=== PATIENT | female | born 1950 | race Caucasian/White ===

== ENCOUNTER 2024-04-16 14:03 | Inpatient (IN) | payer OTHER, SELFPAY ==
[2024-04-16] VITALS (10 sets, daily range): BP systolic 128–162; BP diastolic 65–94; BMI 33.0; BMI 29.0
--- NOTE | 2024-04-16 09:57 | ED.GENMED ---
History of Present Illness
General
Chief Complaint: Heart Rate Problem
Source: patient
Exam Limitations: none
Time Seen by Provider: 04/16/24 09:44
Travel History
Have you had any contact with someone who has COVID-19?: No
Do you have any symptoms of coronavirus? Fever > 100 degrees, chills, cough, shortness of breath, sore throat, loss of taste or smell, muscle aches, or headache?: No
History of Present Illness
History of Present Illness:
74-year-old female presents in referral from family doctor's office for increased leg swelling and weight gain over the past 2 weeks. She notes 20 pound weight gain in 2 weeks. She has never been diagnosed with congestive heart failure but has had
Lasix given to her as needed basis. She took 80 mg of Lasix last 3 days without any relief of her swelling. She denies significant chest pain or shortness of breath. Of note, patient had L2 and L3 fusion 3 weeks ago. She is not anticoagulated.
She notes that her legs are red and tender as well. No fevers. No other complaints at this time
Past History
Past History
ED Past Medical History: Arrthythmia, HTN, Hypothyroidism and Other (RA, colitis)
ED Past Surgical History: Bowel resection, Cardiac, Cholecystectomy, Gynecological, Orthopedic (multiple jjoint replacements) and Other
Social History
Tobacco: Non-smoker
Alcohol: Daily
Drug: None
Personal:
Living: with family
Employment: Retired
Family History
Family History: Hypertension
Phy Exam
Physical Exam
Physical Exam:
General: Well-appearing female no acute respiratory distress
HEENT: Normocephalic atraumatic
Heart: Tachycardic and irregular
Lungs: No obvious rales
Abdomen is soft nontender nondistended no guarding or rebound normal bowel sounds
Extremities: No cyanosis but significant pitting edema noted bilateral lower extremity spreading proximally just underneath the knees.
Vascular: Palpable pulses bilateral feet dorsally
Skin: Erythema noted over the anterior aspect of the shins bilaterally
Course
Orders/Labs/Results
Orders:
Orders
04/16/24 09:42
Electrocardiogram (*1) Urgent
Reason for Study: Chest Pain
EKG- Treatment ONCE
04/16/24 09:54
Diltiazem HCl [Cardizem] 10 mg IV NOW STA
CR Chest - 2 Views Urgent
Comment:
Reason For Exam: sob
Venous Doppler Lwr Ext Bilat [US Periph Venous LOWER Ext Jose] Urgent
Comment:
Reason For Exam: swelling
04/16/24 10:28
Complete Blood Count/With Diff Urgent
Comprehensive Metabolic Panel Urgent
Free T4 Urgent
NT-proBNP Urgent
TSH Reflex To Free T4 Urgent
04/16/24 11:23
Electrocardiogram (*1) Urgent
Reason for Study: Atrial Fibrillation
EKG- Treatment ONCE
04/16/24 12:30
Furosemide [Lasix] 80 mg IV NOW STA
Abnormal Lab Results
04/16/24
10:28
RBC 3.06 L 10^6/uL
(4.20-5.40)
Hgb 9.2 L g/dL
(12.0-16.0)
Hct 28.4 L %
(37.0-47.0)
MCHC 32.4 L g/dL
(33.0-37.0)
RDW 14.6 H %
(11.5-14.5)
Monocytes % 10.9 H %
(1.7-9.3)
Creatinine 0.5 L mg/dL
(0.6-1.0)
Total Protein 5.7 L g/dl
(6.3-8.2)
TSH (Reflex) 0.29 L uIU/ml
(0.47-4.68)
04/16/24 10:28
04/16/24 10:28
Vital Signs
Initial and Last Documented VS:
Initial Vital Signs
Temp Pulse Resp BP Pulse Ox
98.8 F 138 20 128/66 92
04/16/24 09:35 04/16/24 09:35 04/16/24 09:35 04/16/24 09:35 04/16/24 09:35
Last Documented Vital Signs
Temp Pulse Resp BP Pulse Ox
98.8 F 107 22 139/66 92
04/16/24 09:35 04/16/24 10:30 04/16/24 10:30 04/16/24 10:00 04/16/24 09:35
MDM/Problems Addressed
Differential Diagnosis Includes:
Increased swelling and weight gain. Question CHF versus arrhythmia versus DVT
Heart is irregular on exam. Rate of heartbeat on EKG inhibits good read but question atrial flutter versus sinus tachycardia. Will give Cardizem bolus to slow heart rate down and reassess
BNP pending and blood work. Chest x-ray pending.
*Critical Care Note
Total Time (30-74mins, 75-104mins- exclusive of procedures): Not Applicable
Update Note
Update Note:
Patient volume overloaded on exam. Chest x-ray clear BNP low. She has increased her Lasix over the past 2 days without relief and her legs are getting more swollen. Hemoglobin is 9.2 today. I reviewed the patient's prior records on her phone
through [facility]. This seems to be baseline since the beginning of this year. Ordered IV Lasix 80 mg admitted for volume overload
ED Attending Note
-
Portions of this chart may have been created with voice recognition software.� Occasional wrong word or��sound alike� substitutions may have occurred due to the inherent limitations of voice recognition software.
Discharge Plan
Departure
Patient Disposition: Admit
Date of Disposition: 04/16/24
Time of Disposition: 12:37
Admit to: Telemetry
Presentation/result/management discussed w/ accepting MD/DO: Hospitalist
Patient with high blood pressure during this ER visit?: No
Discharge Problem:
Volume overload
Prescriptions:
No Action
naratriptan [Amerge] 2.5 MG tablet
2.5 mg PO PRN PRN (Reason: MIGRAINE)
Patient Comments:
patient reports taking this medication a few weeks ago
pramipexole [Mirapex ER] 0.375 MG tablet extended release 24 hr
0.375 mg PO DAILY
oxycodone 10 MG tablet
10 mg PO HSPRN PRN (Reason: pain)
leflunomide [Arava] 20 MG tablet
20 mg PO DAILY
levothyroxine 100 MCG tablet
100 mcg PO DAILY AT 0700
Xeljanz XR 11 MG tablet extended release 24 hr
11 mg PO DAILY
furosemide [Lasix] 20 mg Tablet
10 mg PO DAILYPRN PRN (Reason: water retention)
potassium chloride 20 mEq Tablet Extended Release
20 meq PO DAILYPRN PRN (Reason: with lasix)
Referrals:
Mynor Méndez Jr. DO [Family Provider] -
Interventions
Interventions:
*Risk Screen - Suicide Last Done: 04/16/24 09:35
*General Assessment Last Done: 04/16/24 09:35
*Neglect/Abuse Screening Last Done: 04/16/24 09:35
*ED COVID-19 Vaccine History Last Done: 04/16/24 10:37
ED- Cardiac Assessment Last Done: 04/16/24 10:37
ED- Pulmonary Assessment Last Done: 04/16/24 10:37
ED-Skin Assessment Last Done: 04/16/24 10:37
Discharge Date and Time
Print Language: SAMI
[2024-04-16] MEDS: CARDIZEM 10 MG IV (10:33)
[2024-04-16 10:35] LABS: % Basophils 0.7 % (0-2); % Eosinophils 4.6 % (0-6); % Immature Granulocytes 0.3 % (0-0.5); % Lymphocytes 23.1 % (20.5-51.1); % Monocytes 10.9 % (1.7-9.3); % Neutrophils 60.4 % (42.2-75.2); Absolute Eosinophils 0.3 10^3/uL (0-0.7); Absolute Lymphocytes 1.4 10^3/uL (1.2-3.4); Absolute Monocytes 0.6 10^3/uL (0.1-0.6); Absolute Neutrophils 3.6 10^3/uL (1.4-6.5); Hematocrit 28.4 % (37.0-47.0); Hemoglobin 9.2 g/dL (12.0-16.0); Mean Corp Hgb Conc. 32.4 g/dL (33.0-37.0); Mean Corpuscular Hgb 30.1 pg (27.0-31.0); Mean Corpuscular Volume 92.8 fL (81.0-99.0); Mean Platelet Volume 8.8 fL (7.4-10.4); Nucleated Red Blood Cells % 0 %; Platelet Count 322 10^3/uL (130-400); Red Blood Cell Count 3.06 10^6/uL (4.20-5.40); Red Cell Dist. Width 14.6 % (11.5-14.5); White Blood Cell Count 5.9 10^3/uL (4.8-10.8)
[2024-04-16 10:56] LABS: ALT (SGPT) 19 U/L (0-35); AST (SGOT) 25 U/L (14-36); Albumin 3.5 g/dl (3.5-5.0); Alkaline Phosphatase 98 U/L (38-126); Blood Urea Nitrogen 17 mg/dl (7-17); Calcium 9.2 mg/dl (8.4-10.2); Carbon Dioxide 30 mmol/L (22-30); Chloride 98 mmol/L (98-107); Estimated Creatinine Clearance 85 ml/min; Glucose 95 mg/dl (70-99); Potassium 3.5 mmol/L (3.5-5.1); Sodium 136 mmol/L (135-145); Total Bilirubin 0.4 mg/dl (0.2-1.3); Total Protein 5.7 g/dl (6.3-8.2); eGFR > 60.00
[2024-04-16 11:01] LABS: NT-proBNP 349 pg/ml
[2024-04-16 11:28] LABS: TSH Reflex To Free T4 0.29 uIU/ml (0.47-4.68)
--- NOTE | 2024-04-16 12:43 | HPS.HSE ---
Addendum entered and electronically signed by Nataliia Arceo DO 04/16/24 13:58:
#Updated Med List - current meds-
Arava is on hold for now
Synthroid 100 mcg daily
Gabapentin 300 mg TID
Flexeril 10 mg TID prn spasm
OxyContin 10 mg q12H prn pain
Crestor 5 mg daily
#hold on abx at this time, b/l LE redness does not appear cellulitic at this time, close clinical monitoring
-low threshold to start abx-repeat CBC in am and monitor fever curve
Original Note:
Family Physician
-
Family Physician: Mynor Méndez Jr.
Chief Complaint
-
LE edema and redness
History of Present Illness
The patient is a 74 year-old woman with PMH significant for rheumatoid arthritis on Arava (currently off immunosuppressant due to recent surgery and has not restarted yet), hypothyroidism, HTN, and multiple orthopedic surgeries who presents to
eED due to increased leg swelling and weight gain over the past 2 weeks associated with a 20 pound weight gain in 2 weeks. No history of CHF but takes Lasix oral outpatient as needed for edema. She took 80 mg Lasix daily for 3 days without relief.
No CP, no SOB, no fevers, no chills, no n/v/d, no abdominal pain. She is s/p L2-3 spinal fusion 3 weeks ago. Not on anticoagulation. Legs are red and tender and have been getting progressively more red and tender over the past several days. No
traumatic injury, no skin tears nor lesions.
heart rate 107, 92% RA, Hgb 9.2 K 3.5
ED txt:
Diltiazem 10 mg IV once
Lasix 80 mg IV once
Medical History
Past Medical History
Past Medical History: Reports HTN, Hypothyroidism and Other (Rheumatoid arthritis)
Past Surgical History: Reports Bowel Resection (Partial small bowel resection), Cholecystectomy, Gynocological (RYAN) and Orthopedic (Bilateral Reverse Shoulder Replacements 9 Total Shoulder Surgeries Bilateral TKA Bilateral TOMMIE R TOMMIE Revision x 3
Right Foot ORIF with Extensive Retained Hardware (Patient estimates a total of 30 Orthopedic surgeries.))
Social History
Tobacco: Non-smoker
Alcohol: Daily
Drug: None
Personal:
Living: With Family
Family History
Family History: Cancer (Sister thyroid cancer, breast cancer, multiple sclerosis)
Allergies / Home Medications
Allergies reflects when Allergies were last updated in [facility].
Home Medications with original date entered in [facility]
Allergy/Medication List:
Allergies
Allergy/AdvReac Type Severity Reaction Status Date / Time
metoprolol Allergy Rash Verified 04/16/24 09:42
Home Medications
naratriptan 2.5 mg tablet (Amerge) 2.5 mg PO PRN PRN MIGRAINE 03/13/10
pramipexole 0.375 mg tablet,extended release 24 hr (Mirapex ER) 0.375 mg PO DAILY Neurological Condition 08/05/12
leflunomide 20 mg tablet (Arava) 20 mg PO DAILY Autoimmune disorder 06/13/14
oxycodone 10 mg tablet 10 mg PO HSPRN PRN pain 06/13/14
levothyroxine 100 mcg tablet 100 mcg PO DAILY AT 0700 Thyroid 02/19/17
tofacitinib 11 mg tablet,extended release 24 hr (Xeljanz XR) 11 mg PO DAILY Autoimmune disorder 09/18/21
furosemide 20 mg tablet (Lasix) 10 mg PO DAILYPRN PRN water retention 06/14/22
potassium chloride 20 mEq tablet,extended release 20 meq PO DAILYPRN PRN with lasix 06/14/22
Review of Systems
-
A 12 point ROS was completed and negative except as noted: Yes
Physical Exam
Vital Signs
Vital Signs
Temp Pulse Resp BP Pulse Ox
98.8 F 107 22 139/66 92
04/16/24 09:35 04/16/24 10:30 04/16/24 10:30 04/16/24 10:00 04/16/24 09:35
Physical Exam
General: Well Developed, Well Nourished, No Apparent Distress, Comfortable and Conversant
HEENT: NormoCephalic, Anicteric and Moist mucous membranes
Respiratory: Clear
Cardiac: S1/S2 and Tachycardia
GI: Soft, Non Tender and Non Distended
Musculoskeletal: No Clubbing, No Cyanosis, Edema, Left Lower Extremity (3+) and Edema, Right Lower Extremity (3+)
Skin: Warm and Dry
Neuro: AO x 3, No Motor Deficits and Nonfocal/grossly intact
Psych: Calm
Laboratory Results
-
04/16/24 10:28
04/16/24 10:28
Laboratory Results
Total Bilirubin 0.4 mg/dl (0.2-1.3) 04/16/24 10:28
AST 25 U/L (14-36) 04/16/24 10:28
ALT 19 U/L (0-35) 04/16/24 10:28
Alkaline Phosphatase 98 U/L (38-126) 04/16/24 10:28
Data Reviewed
-
Diagnostic Radiology: Image Personally Visualized and interpreted and Report Reviewed by me (CXR There is evidence for a comminuted fracture of the left proximal humeral shaft width side plate and cerclage wiring in this region. This would suggest a
acute to subacute fracture with internal fixation, and please correlate clinically.)
Medical Tests (Nuc Med, Echo, EKG etc): Report Reviewed by me (sinus rhythm w marked sinus arrythmia)
Impression/Plan
-
IMPRESSION:
The patient is a 74 year-old woman with PMH significant for rheumatoid arthritis on Arava (currently off immunosuppressant due to recent surgery and has not restarted yet), hypothyroidism, HTN, and multiple orthopedic surgeries who presents to the
ED due to increased leg swelling and weight gain over the past 2 weeks associated with a 20 pound weight gain in 2 weeks. No history of CHF but takes Lasix oral outpatient as needed for LE edema. She took 80 mg Lasix daily for 3 days without relief.
No CP, no SOB, no fevers, no chills, no n/v/d, no abdominal pain. She is s/p L2-3 spinal fusion 3 weeks ago. Not on anticoagulation. Legs are red and tender and have been getting progressively more red and tender over the past several days. No
traumatic injury, no skin tears nor lesions. She notes she saw Vascular Surgery OP for work-up of peripheral edema.
heart rate 107, 92% RA, Hgb 9.2 K 3.5
ED txt:
Diltiazem 10 mg IV once
Lasix 80 mg IV once
# B/L venous insufficiency with associated worsening peripheral edema & volume overload bilateral LE , following recent lumbar spinal fusion at [place] 3 weeks prior, without evidence for HFrEF at this time
-history of US venous insufficiency 09/16/22 with findings as follows on US:
-Insufficiency of BOTH below knee greater saphenous veins as well as the LEFT small saphenous vein. Isolated varicosity noted within the medial aspect of the left thigh, Incompetent academic assistant vein within the medial left ankle, Deep venous reflux
within the LEFT popliteal vein.
-Plan is for IV Lasix to reduce edema
-elevated LE
-izabela wrap legs b/l
-Consider Vascular consultation (She has seen [facility] outpatient in the past) pending clinical course
-repeat echocardiogram
-UA pending
#Tachycardia with history of tachyarrhythmia, [employer] Policy Specialist is Dr. Arshad , no CP, no SOB
-monitor on tele, s/p Dilt x 1 in ED, prn BB
-consult Cardiology
# Echo 10/15/23 normal LV size and systolic function EF 65-70%, mild LVH, mild AR, mild TR
-repeat echo this admission
# Hypothyroidism
-TSH 0.29
- T4 WNL 1.60
# Mild hypokalemia
-K 3.5 , replete and monitor
-Check Mg
Pro-BNP 349
#RA
- Stable. Arava is on hold OP s/p lumber spinal fusion, continue to hold.
DVT Prophylaxis: Lovenox
Code Status: Full
#Incidental finding on imaging: Comminuted fracture involving the proximal left humeral shaft with adjacent metallic sideplate, screws, and cerclage wiring. Findings would suggest internal fixation of acute to subacute fracture, and please correlate
clinically.
-patient not c/o acute symptoms nor trauma related to these findings, no new onset of symptoms and she has an OP Ortho follow-up in June with her Surgeon who performed the shoulder surgery repair (which as in June). She will contact her OP ortho
unless any further issues while inpatient.
[2024-04-16] MEDS: LASIX 80 MG IV (13:24)
--- NOTE | 2024-04-16 14:21 | CON.CAR ---
Consultation
Consultation Request
Date/Time Consultation Requested: April 16, 2024
Date/Time Consultation Performed: April 16, 2024
Requesting Provider: Dr. Arceo
Performing Provider: Dr. Arshad
Reason for Consultation: Lower extremity edema/heart failure/tachycardia
Medical History
-
Chief Complaint: Lower extremity edema
History of Present Illness:
Ana is a patient known to me last in the office January 2024 with a history of SVT, chronic lymphedema and venous insufficiency, frequent PVCs, hyperlipidemia, rheumatoid arthritis who has had multiple orthopedic surgeries. She stated that she
has had over 30 surgeries. She was deemed acceptable cardiac risk during the January visit for lumbar fusion surgery which she underwent at [facility] including L2-L3 laminectomy March 23, 2024.
Over the last 2 weeks she has noted increased lower extremity edema with redness over the last week of her lower extremities. Lasix 40 mg daily did not improve. She took additional Lasix on her own including 80 mg daily without improvement. She
denies chest pain or shortness of breath. She saw her PCP today in the office and was recommended ER evaluation. She is being admitted for lower extremity edema/volume overload with known lymphedema and venous insufficiency. She received Lasix 80
mg IV in the emergency room.
Past medical history:
Recent lumbar fusion L2-L3 laminectomy [facility] March 23, 2024
Multiple orthopedic surgeries, the patient says over 30
Lymphedema
Chronic venous insufficiency, she has seen vascular and was getting lymphatic pumps
HTN
Hyperlipidemia
Rheumatoid arthritis
Mild mitral regurgitation and tricuspid regurgitation and aortic regurgitation
Chronic PACs
History SVT with hx AVNRT ablation Sep 2018 Dr Brown
Hypothyroidism
right foot and ankle surgery November 2019
Left shoulder surgery April 2023
Hip dislocation May 2022, to [facility]
Echo September 2023: EF 65 to 70% with mild LVH, mild MR, mild AR, mild TR, PASP 30 to 35 mmHg no change from 2020
Lexiscan MIBI March 2021 showed normal myocardial perfusion
Social History
Tobacco: Non-Smoker
Alcohol: Occasional
Drug: None
Personal:
Living: With Family
Family History
Family History: Reviewed & Not Pertinent (Father age 94, mother 102)
Allergies / Home Medications
Allergy/AdvReac Type Severity Reaction Status Date / Time
metoprolol Allergy Rash Verified 04/16/24 09:42
�Medication �Instructions �Recorded �Confirmed �Type
naratriptan 2.5 mg tablet (Amerge) 2.5 mg PO PRN PRN MIGRAINE 03/13/10 06/14/22 History
pramipexole 0.375 mg 0.375 mg PO DAILY Neurological 08/05/12 06/14/22 History
tablet,extended release 24 hr Condition
(Mirapex ER)
leflunomide 20 mg tablet (Arava) 20 mg PO DAILY Autoimmune disorder 06/13/14 06/14/22 History
oxycodone 10 mg tablet 10 mg PO HSPRN PRN pain 06/13/14 06/14/22 History
levothyroxine 100 mcg tablet 100 mcg PO DAILY AT 0700 Thyroid 02/19/17 06/14/22 History
tofacitinib 11 mg tablet,extended 11 mg PO DAILY Autoimmune disorder 09/18/21 06/14/22 History
release 24 hr (Xeljanz XR)
furosemide 20 mg tablet (Lasix) 10 mg PO DAILYPRN PRN water 06/14/22 06/14/22 History
retention
potassium chloride 20 mEq 20 meq PO DAILYPRN PRN with lasix 06/14/22 06/14/22 History
tablet,extended release
Review of Systems
-
History Source: Patient
All other systems: Negative unless noted
Musculoskeletal: Edema (Bilateral lower extremity with erythema)
Physical Exam
Vital Signs
Temp Pulse Resp BP Pulse Ox
98.8 F 94 15 142/67 92
04/16/24 09:35 04/16/24 13:24 04/16/24 12:45 04/16/24 13:24 04/16/24 09:35
Physical Examination:
General: No acute distress, AAOX3
Neck: Negative JVD
Heart: Regular, Negative S3 positive S1/S2, Negative S4, No murmur
Lungs: CTA b/l, negative wheezes/rales/rhonchi
Abd: Positive BS, NT/ND, neg rebound/rigidity/guarding
Ext: Negative cyanosis/clubbing. +1-2 bilateral edema with erythema
Neuro: nonfocal
Lab Results
04/16/24 10:28
04/16/24 10:28
Map-S-Qpeenqtfxmc Pept 349 pg/ml 04/16/24 10:28
Impression / Plan
-
.
Primary nephrology social worker: Dr. Arshad
Impression:
Increased lower extremity edema with erythema with history of lymphedema and known venous stasis
s/p recent lumbar fusion L2-L3 laminectomy [facility] March 23, 2024
Multiple orthopedic surgeries, the patient says over 30
Lymphedema
Chronic venous insufficiency, she has seen vascular and was getting lymphatic pumps
HTN
Hyperlipidemia
Rheumatoid arthritis
Mild mitral regurgitation and tricuspid regurgitation and aortic regurgitation
Chronic PACs with recent monitor
History SVT with hx AVNRT ablation Sep 2018 Dr Brown
Hypothyroidism
right foot and ankle surgery November 2019
Left shoulder surgery April 2023
Hip dislocation May 2022, to [facility]
Echo September 2023: EF 65 to 70% with mild LVH, mild MR, mild AR, mild TR, PASP 30 to 35 mmHg no change from 2020
Lexiscan MIBI March 2021 showed normal myocardial perfusion
Recent 3-day monitor March 2024: Normal sinus rhythm throughout the study with average heart rate 96 bpm, frequent atrial tachycardia longest 19 beats, frequent PACs over 20,000/day, rare PVCs
Plan:
Agree with IV Lasix diuresis given her suppose a 20 pound weight gain as well as lower extremity edema and erythema.
Agree with leg wraps.
She has limited capability to raise her legs and so declines due to chronic hip dislocation and significant orthopedic issues.
proBNP 349
Replete lytes as needed
Consider echocardiogram prior to discharge if she is still here April 18.
The patient did express that she did not want to stay more than 24 hours. Explained that diuresis may take longer than this.
Consider continuing calcium channel aubrie for tachycardia, ectopy. History of pruritus with metoprolol.
Monitor for cellulitis.
PT/OT
Continue statin for hyperlipidemia
Discussed with primary service.
Data Reviewed
-
EKG: Tracing Personally Visualized and interpreted
Labs: Labs Reviewed by me
Old Records: Reviewed
[2024-04-16] MEDS: FLEXERIL 10 MG PO (16:05)
[2024-04-16] MEDS: OXYCONTIN (CONTROLLED RELEASE) 10 MG PO (16:05)
[2024-04-16 17:40] LABS: Urine Albumin Negative (Neg - Trace); Urine Bilirubin Negative (Negative); Urine Character Clear (Clear); Urine Color Yellow; Urine Glucose Negative (Negative); Urine Ketone Negative (Negative); Urine Leukocyte Negative (Negative); Urine Nitrite Negative (Negative); Urine Occult Blood Negative (Negative); Urine Urobilinogen Negative (Neg - 1+)
[2024-04-16] MEDS: ROXICODONE 10 MG PO (18:43)
[2024-04-16] MEDS: CRESTOR 5 MG PO (18:43)
[2024-04-16] MEDS: LOVENOX 40 MG SC (18:43)
[2024-04-16] MEDS: LASIX 40 MG IV (18:43)
[2024-04-16 18:53] LABS: Troponin I < 0.012 ng/ml
[2024-04-16 20:16] LABS: Magnesium 1.9 mg/dl (1.6-2.3)
--- NOTE | 2024-04-16 21:00 | PTCARENOTE ---
Patient is inquiring about Mirapex medication for her restless legs and why it is currently not ordered for her to take while in hospital. Will discuss with dayshift nurse for attending doctor to address in am.
[2024-04-16] MEDS: NEURONTIN 300 MG PO (21:36)
[2024-04-17] VITALS (7 sets, daily range): BP systolic 105–126; BP diastolic 54–74; PULSE 105; O2SAT 92; BMI 28.3
[2024-04-17 00:28] LABS: Troponin I < 0.012 ng/ml
--- NOTE | 2024-04-17 01:08 | PTCARENOTE ---
Patient is refusing to have bed placed in low position. Patient states that with her recent back surgery, she is unable to get OOB when it is in lowest position. Understands risks of bed not being placed in lowest position to the floor. Call juan
within reach, will monitor.
[2024-04-17] MEDS: SYNTHROID 100 MCG PO (05:44)
[2024-04-17 07:52] LABS: Hematocrit 27.1 % (37.0-47.0); Hemoglobin 8.7 g/dL (12.0-16.0); Mean Corp Hgb Conc. 32.1 g/dL (33.0-37.0); Mean Corpuscular Hgb 30.4 pg (27.0-31.0); Mean Corpuscular Volume 94.8 fL (81.0-99.0); Mean Platelet Volume 9.4 fL (7.4-10.4); Platelet Count 335 10^3/uL (130-400); Red Blood Cell Count 2.86 10^6/uL (4.20-5.40); Red Cell Dist. Width 14.6 % (11.5-14.5); White Blood Cell Count 5.5 10^3/uL (4.8-10.8)
--- NOTE | 2024-04-17 08:00 | W.PN.HOSP.TC ---
Today's Communication/Plan
-
Will continue IV diuresis
Monitor daily weights
Monitor BMP
Apply compression device to both lower extremities
Will be difficult for leg elevation given her hip infirmity and recent spinal surgery
Appreciate cardiology input
Assessment / Plan
Assessment / Plan
74 year-old woman with PMH significant for rheumatoid arthritis on Arava (currently off immunosuppressant due to recent surgery and has not restarted yet), hypothyroidism, HTN, and multiple orthopedic surgeries who presents to [facility] due to
increased leg swelling and weight gain over the past 2 weeks associated with a 20 pound weight gain in 2 weeks. No history of CHF but takes Lasix oral outpatient as needed for edema. She took 80 mg Lasix daily for 3 days without relief. No CP, no
SOB, no fevers, no chills, no n/v/d, no abdominal pain. She is s/p L2-3 spinal fusion 3 weeks ago. Not on anticoagulation. Legs are red and tender and have been getting progressively more red and tender over the past several days. No traumatic
injury, no skin tears nor lesions.
Was given a single dose of diltiazem 10 mg in the ED
She has had a recent Holter monitor in the last week showed periods of runs of atrial tachycardia but underlying sinus rhythm throughout no A-fib
Telemetry since arrival continues to show sinus rhythm with frequent PACs
B/L venous insufficiency with associated worsening peripheral edema & volume overload bilateral LE , following recent lumbar spinal fusion at [place] 3 weeks prior, without evidence for HFrEF at this time
-history of US venous insufficiency 09/16/22 with findings as follows on US:
-Insufficiency of BOTH below knee greater saphenous veins as well as the LEFT small saphenous vein. Isolated varicosity noted within the medial aspect of the left thigh, Incompetent gas plant worker vein within the medial left ankle, Deep venous reflux
within the LEFT popliteal vein.
-Plan is for IV Lasix to reduce edema/compression devices and Julian wrap's should be added
-elevated LE difficult given her history of frequent hip dislocations and recent spinal fusion
-julian wrap legs b/l
-Consider Vascular consultation (She has seen Gonsalez outpatient in the past) pending clinical course
-repeat echocardiogram
-UA was within normal limits
#Tachycardia with history of tachyarrhythmia, Lock Expert is Dr. Arshad , no CP, no SOB
-monitor on tele, s/p Dilt x 1 in ED, prn BB
-consult Cardiology
# Echo 10/15/23 normal LV size and systolic function EF 65-70%, mild LVH, mild AR, mild TR
-repeat echo this admission
# Hypothyroidism
-TSH 0.29
- T4 WNL 1.60
# Mild hypokalemia
-K 3.5 , replete and monitor
-Check Mg
Pro-BNP 349
#RA
- Stable. Arava is on hold OP s/p lumber spinal fusion, continue to hold.
DVT Prophylaxis: Lovenox
Code Status: Full
#Incidental finding on imaging: Comminuted fracture involving the proximal left humeral shaft with adjacent metallic sideplate, screws, and cerclage wiring. Findings would suggest internal fixation of acute to subacute fracture, and please correlate
clinically.
-patient not c/o acute symptoms nor trauma related to these findings, no new onset of symptoms and she has an OP Ortho follow-up in June with her Surgeon who performed the shoulder surgery repair (which as in June). She will contact her OP ortho
unless any further issues while inpatient.
Anticipated Discharge: Within 24 hours
Subjective/Interval History
-
Date of Service: April 17, 2024
Really did not have a lot of diuresis given after IV Lasix
Objective Data
-
Labs:
Laboratory Results
04/17/24
06:49
WBC 5.5
Hgb 8.7 L
Hct 27.1 L
Plt Count 335
Sodium Pending
Potassium Pending
Chloride Pending
Carbon Dioxide Pending
BUN Pending
Creatinine Pending
Glucose Pending
Calcium Pending
Vital Signs:
Vital Signs
Temp Pulse Resp BP Pulse Ox
98.6 F 112 20 124/68 94
04/17/24 03:00 04/17/24 03:00 04/17/24 03:00 04/17/24 03:00 04/17/24 03:00
I&O
04/16/24 04/17/24 04/18/24
06:59 06:59 06:59
Intake Total 480 / 480
Balance 480 / 480
Review of Systems
-
History Source: Patient
EENT: Reports No Symptoms Reported
Respiratory: Reports No Symptoms
Cardiac: Reports No Symptoms
Abdomen/GI: Reports No Symptoms
Skin: Reports Rash (Lower extremities) and Skin Thickening
Physical Exam
-
General: No Apparent Distress
HEENT: Normocephalic
Cardiac: S1/S2 and Irregular Rhythm (Underlying sinus rhythm with frequent PACs)
GI: Soft and Nontender
Musculoskeletal: Edema, Right Lower Extrem, Edema, Left Lower Extrem and Other (Stasis changes and erythema)
Psych: Calm
Data Reviewed
-
Total Time Spent with Patient (in minutes): 56
Medical Tests (Nuc Med, Echo etc): Image personally visualized and interpreted and Report Reviewed by me (CBC and chemistries pending)
Labs: Labs Reviewed by me
[2024-04-17 08:15] LABS: Blood Urea Nitrogen 13 mg/dl (7-17); Calcium 9.3 mg/dl (8.4-10.2); Carbon Dioxide 31 mmol/L (22-30); Chloride 99 mmol/L (98-107); Estimated Creatinine Clearance 87 ml/min; Glucose 93 mg/dl (70-99); HDL Cholesterol 39 mg/dl; Iron 32 ug/dl (37-170); LDL Cholesterol, Calculated 53 mg/dl; Potassium 3.1 mmol/L (3.5-5.1); Sodium 138 mmol/L (135-145); Total Cholesterol 109 mg/dl (50-199); Triglyceride 89 mg/dl (10-149); Very Low Density Lipoprotein 17 mg/dl (0-30); eGFR > 60.00
[2024-04-17 08:26] LABS: Percent Saturation 11 % (20-50); Total Iron Binding Capacity 283 ug/dl (265-497)
[2024-04-17 08:46] LABS: Ferritin 41.1 ng/ml (11.1-264.0)
[2024-04-17] MEDS: LASIX 40 MG IV ×2 (08:48→16:48)
[2024-04-17] MEDS: NEURONTIN 300 MG PO ×3 (08:48→21:57)
[2024-04-17] MEDS: ROXICODONE 10 MG PO ×3 (08:52→20:47)
[2024-04-17] MEDS: FLEXERIL 10 MG PO ×2 (08:53→16:53)
[2024-04-17 09:17] LABS: Folate > 20.0 ng/ml (2.76-20); Vitamin B12 578 pg/ml (239-931)
--- NOTE | 2024-04-17 11:45 | CM ---
Met with pt at bedside
Lives with her in a 2 story home
Recently at [place] for back surgery
Independent at home
DME - cane. has CPAP
SNF - denies past history
HH - Current with [facility]
Has ride at d/c
PCP - Dr Prieto Méndez
Pharm - [facility]
CM will follow for d/c needs
Plan - anticipate home with [facility]
--- NOTE | 2024-04-17 15:14 | W.PN.CARDCBS ---
Today's Communication / Plan
-
Cont IV diuresis
Echo tomorrow
Impression / Plan
-
.
Primary computer security specialist: Dr. Arshad
Impression:
Increased lower extremity edema with erythema with history of lymphedema and known venous stasis
s/p recent lumbar fusion L2-L3 laminectomy [facility] March 23, 2024
Multiple orthopedic surgeries, the patient says over 30
Lymphedema
Chronic venous insufficiency, she has seen vascular and was getting lymphatic pumps
HTN
Hyperlipidemia
Rheumatoid arthritis
Mild mitral regurgitation and tricuspid regurgitation and aortic regurgitation
Chronic PACs with recent monitor
History SVT with hx AVNRT ablation Sep 2018 Dr Brown
Hypothyroidism
right foot and ankle surgery November 2019
Left shoulder surgery April 2023
Hip dislocation May 2022, to [facility]
Echo September 2023: EF 65 to 70% with mild LVH, mild MR, mild AR, mild TR, PASP 30 to 35 mmHg no change from 2020
Lexiscan MIBI March 2021 showed normal myocardial perfusion
Recent 3-day monitor March 2024: Normal sinus rhythm throughout the study with average heart rate 96 bpm, frequent atrial tachycardia longest 19 beats, frequent PACs over 20,000/day, rare PVCs
Plan:
Cont IV Lasix diuresis given her supposed 20 pound weight gain as well as lower extremity edema and erythema.
Agree with leg wraps.
Wt coming down
She has limited capability to raise her legs and so declines due to chronic hip dislocation and significant orthopedic issues.
proBNP 349 on admit.
Replete lytes as needed
Consider echocardiogram prior to discharge if she is still here April 18.
Consider continuing calcium channel aubrie for tachycardia, ectopy which is chronic. History of pruritus with metoprolol.
Monitor for cellulitis.
PT/OT
Continue statin for hyperlipidemia
Discussed with primary service.
Progress Note - Photo Printer
Subjective
Date of Service: April 17, 2024
Pt seen and examined. No cp or dyspnea.
Objective
Labs:
04/17/24 06:49
04/17/24 06:49
Labs
Hgb 8.7 g/dL (12.0-16.0) L 04/17/24 06:49
Hct 27.1 % (37.0-47.0) L 04/17/24 06:49
Plt Count 335 10^3/uL (130-400) 04/17/24 06:49
Sodium 138 mmol/L (135-145) 04/17/24 06:49
Potassium 3.1 mmol/L (3.5-5.1) L 04/17/24 06:49
BUN 13 mg/dl (7-17) 04/17/24 06:49
Creatinine 0.5 mg/dL (0.6-1.0) L 04/17/24 06:49
Glucose 93 mg/dl (70-99) 04/17/24 06:49
Troponins
04/16/24 04/16/24
18:22 23:50
Troponin I < 0.012 < 0.012
Vital Signs and I&O:
Vital Signs
Temp Pulse Resp BP Pulse Ox
98.6 F 104 18 117/69 96
04/17/24 11:10 04/17/24 11:10 04/17/24 11:10 04/17/24 11:10 04/17/24 11:10
Vital Signs
Temp Pulse Resp BP Pulse Ox
98.6 F 104 18 117/69 96
04/17/24 11:10 04/17/24 11:10 04/17/24 11:10 04/17/24 11:10 04/17/24 11:10
Intake & Output
04/15/24 04/16/24 04/17/24 04/18/24
06:59 06:59 06:59 06:59
Intake Total 480 / 480
Balance 480 / 480
Physical Exam
Physical Exam
General: No acute distress, AAOX3
Neck: Negative JVD
Heart: Regular, Negative S3 positive S1/S2, Negative S4, No murmur
Lungs: CTA b/l, negative wheezes/rales/rhonchi
Abd: Positive BS, NT/ND, neg rebound/rigidity/guarding
Ext: Negative cyanosis/clubbing. + 2 b/l LE lymphedema
Neuro: nonfocal
[2024-04-17] MEDS: LOVENOX 40 MG SC (16:46)
[2024-04-17] MEDS: CRESTOR 5 MG PO (16:47)
[2024-04-18 03:25] VITALS: BP 111/68
[2024-04-18] MEDS: SYNTHROID 100 MCG PO (05:36)
[2024-04-18] MEDS: ROXICODONE 10 MG PO ×4 (05:36→21:22)
[2024-04-18 06:00] VITALS: BMI 27.8
[2024-04-18 07:09] LABS: Blood Urea Nitrogen 12 mg/dl (7-17); Calcium 9.1 mg/dl (8.4-10.2); Carbon Dioxide 35 mmol/L (22-30); Chloride 94 mmol/L (98-107); Estimated Creatinine Clearance 87 ml/min; Glucose 94 mg/dl (70-99); Sodium 136 mmol/L (135-145); eGFR > 60.00
[2024-04-18 07:34] VITALS: BP 109/59
[2024-04-18] MEDS: FLEXERIL 10 MG PO (08:24)
[2024-04-18] MEDS: NEURONTIN 300 MG PO ×3 (08:24→21:21)
[2024-04-18] MEDS: LASIX 40 MG IV ×2 (08:25→15:37)
[2024-04-18 10:02] LABS: % Basophils 0.5 % (0-2); % Eosinophils 6.2 % (0-6); % Immature Granulocytes 0.4 % (0-0.5); % Lymphocytes 31.5 % (20.5-51.1); % Monocytes 12.2 % (1.7-9.3); % Neutrophils 49.2 % (42.2-75.2); Absolute Eosinophils 0.3 10^3/uL (0-0.7); Absolute Lymphocytes 1.7 10^3/uL (1.2-3.4); Absolute Monocytes 0.7 10^3/uL (0.1-0.6); Absolute Neutrophils 2.7 10^3/uL (1.4-6.5); Hematocrit 27.2 % (37.0-47.0); Hemoglobin 8.7 g/dL (12.0-16.0); Mean Corpuscular Hgb 30.4 pg (27.0-31.0); Mean Corpuscular Volume 95.1 fL (81.0-99.0); Mean Platelet Volume 9.4 fL (7.4-10.4); Nucleated Red Blood Cells % 0 %; Platelet Count 360 10^3/uL (130-400); Red Blood Cell Count 2.86 10^6/uL (4.20-5.40); Red Cell Dist. Width 14.8 % (11.5-14.5); White Blood Cell Count 5.5 10^3/uL (4.8-10.8)
[2024-04-18] MEDS: KCL 40 MEQ PO ×3 (10:28→15:40)
--- NOTE | 2024-04-18 10:56 | W.PN.CARDCBS ---
Addendum entered and electronically signed by Harpal Weller MD 04/18/24 17:43:
Telemetry with either episodes of PAT/A-fib. Janay has been added
Addendum entered and electronically signed by Harpal Weller MD 04/18/24 12:43:
I saw and examined the patient.
The FOCUSED FACTORY MANAGER or PA's note was reviewed and I agree with the note.
Comment: General: Well developed, well nourished in NAD.
Neck: Supple, no JVD, HJR, carotids +2 B/L, no bruits bilaterally.
Heart: Non displaced PMI, RRR, no murmurs, No S3, S4, no rubs.
Lungs: Scattered rhonchi
Extremities: Moderate lower extremity edema bilaterally.
Neuro: Grossly nonfocal, awake, alert and oriented x3.
He feels her weight is normally 162 pounds at baseline and is 172 pounds on Wednesday 04/18. Continue IV Lasix. Replete potassium.
Original Note:
Today's Communication / Plan
-
Continue IV diuresis
Aggressively replete potassium
Check left lower extremity venous Doppler
Impression / Plan
-
.
Primary apple checker: Dr. Arshad
Impression:
Presented w/ increased lower extremity edema, weight gain
Increased lower extremity edema with erythema with history of lymphedema and known venous stasis
Anemia
s/p recent lumbar fusion L2-L3 laminectomy [facility] March 23, 2024
Multiple orthopedic surgeries, the patient says over 30
Lymphedema
Chronic venous insufficiency, she has seen vascular and was getting lymphatic pumps
HTN
Hyperlipidemia
Rheumatoid arthritis
Mild mitral regurgitation and tricuspid regurgitation and aortic regurgitation
Chronic PACs with recent monitor
History SVT with hx AVNRT ablation Sep 2018 Dr Brown
Hypothyroidism
right foot and ankle surgery November 2019
Left shoulder surgery April 2023
Hip dislocation May 2022, to [facility]
Echo 04/18/2024: Ordered
Echo September 2023: EF 65 to 70% with mild LVH, mild MR, mild AR, mild TR, PASP 30 to 35 mmHg no change from 2020
Lexiscan MIBI March 2021 showed normal myocardial perfusion
Recent 3-day monitor March 2024: Normal sinus rhythm throughout the study with average heart rate 96 bpm, frequent atrial tachycardia longest 19 beats, frequent PACs over 20,000/day, rare PVCs
Plan:
Cont IV Lasix diuresis given her supposed 20 pound weight gain as well as lower extremity edema and erythema.
proBNP 349 on admit.
Agree with leg wraps.
Wt coming down, has lost 5 lbs since admission
She has limited capability to raise her legs due to chronic hip dislocation and significant orthopedic issues.
Replete lytes as needed, K+ 3.0 will need aggressive repletion 40 meq TID today
Check Echocardiogram 04/18/24.
Start low dose Diltiazem 120 mg for tachycardia, PACs/ectopy which is chronic. History of pruritus with metoprolol.
Complaining of worsening left lower extremity swelling and pain. Patient reports Julian wrap slipped down and her left calf is now very painful and swollen. Her left foot is painful as well. Will check lower extremity venous Doppler to rule out DVT.
Monitor for cellulitis, although redness seems to have improved.
PT/OT
Noted to be anemic on admission with hemoglobin 9.2. Currently 8.7. May be secondary to recent orthopedic surgery. Continue to monitor and trend. Consider heme testing stool. Defer to primary service
Continue statin for hyperlipidemia
Discussed with primary service.
History of Present Illness 04/16/24:
Ana is a patient known to me last in the office January 2024 with a history of SVT, chronic lymphedema and venous insufficiency, frequent PVCs, hyperlipidemia, rheumatoid arthritis who has had multiple orthopedic surgeries. She stated that she
has had over 30 surgeries. She was deemed acceptable cardiac risk during the January visit for lumbar fusion surgery which she underwent at [facility] including L2-L3 laminectomy March 23, 2024.
Over the last 2 weeks she has noted increased lower extremity edema with redness over the last week of her lower extremities. Lasix 40 mg daily did not improve. She took additional Lasix on her own including 80 mg daily without improvement. She
denies chest pain or shortness of breath. She saw her PCP today in the office and was recommended ER evaluation. She is being admitted for lower extremity edema/volume overload with known lymphedema and venous insufficiency. She received Lasix 80
mg IV in the emergency room.
Progress Note - Bilingual Administrative Assistant
Subjective
Date of Service: April 18, 2024
Patient seen and examined. Patient sitting up in bed. Complaining of worsening left lower extremity swelling and pain. Patient reports Julian wrap slipped down and her left calf is now very painful and swollen. Her left foot is painful as well.
Objective
Labs:
04/18/24 06:24
04/18/24 09:37
Labs
Hgb 8.7 g/dL (12.0-16.0) L 04/18/24 06:24
Hct 27.2 % (37.0-47.0) L 04/18/24 06:24
Plt Count 360 10^3/uL (130-400) 04/18/24 06:24
Sodium Cancelled 04/18/24 09:37
Potassium Cancelled 04/18/24 09:37
BUN Cancelled 04/18/24 09:37
Creatinine Cancelled 04/18/24 09:37
Glucose Cancelled 04/18/24 09:37
Troponins
04/16/24 04/16/24
18:22 23:50
Troponin I < 0.012 < 0.012
Vital Signs and I&O:
Vital Signs
Temp Pulse Resp BP Pulse Ox
98.7 F 98 18 109/59 94
04/18/24 07:34 04/18/24 07:34 04/18/24 07:34 04/18/24 08:25 04/18/24 07:34
Vital Signs
Temp Pulse Resp BP Pulse Ox
98.7 F 98 18 109/59 94
04/18/24 07:34 04/18/24 07:34 04/18/24 07:34 04/18/24 08:25 04/18/24 07:34
Intake & Output
04/16/24 04/17/24 04/18/24 04/19/24
06:59 06:59 06:59 06:59
Intake Total 480 / 480 1360 / 1360
Output Total 1800 / 1800
Balance 480 / 480 -440 / -440
Physical Exam
Physical Exam
GEN: No distress, awake, Ox3, sitting in bed
HEENT: supple, anicteric, mmm
LUNGS: CTA, no wheezes/rales
CV: Reg, S1/S2, no murmur, rub or gallop
ABD: soft, BS+, NT/ND
EXT: Left calf enlarged/swollen, firm, painful to touch. Left foot/ankle +1 edema, right lower extremity trace edema. Bilateral skin changes consistent with chronic venous stasis
NEURO: Gross non-focal
SKIN: No rash, warm, dry, pink
[2024-04-18 11:59] VITALS: BP 141/73
[2024-04-18] MEDS: CARDIZEM CD 120 MG PO (13:01)
[2024-04-18 15:30] VITALS: BP 118/60
[2024-04-18] MEDS: LOVENOX 40 MG SC (17:19)
[2024-04-18] MEDS: CRESTOR 5 MG PO (17:19)
--- NOTE | 2024-04-18 19:27 | W.PN.HOSP.TC ---
Addendum entered and electronically signed by Tono Saavedra MD 04/18/24 23:16:
Attending Addendum-
I saw and evaluated the patient. I reviewed the resident�s note and agree with findings and plan as documented in the resident�s note. Complains of b/l LE pain. Back pain present but chronic. 'Chelsi had 37 orthopedic surgeries!' Full 12 point ROS
reviewed and negative except as documented Exam: Vitals reviewed in chart GEN-NAD Heart irreg lungs clear abd soft LE +1 pitting edema TTP LT>RT Back- incision CDI Plan:
# B/L venous insufficiency with associated worsening peripheral edema & volume overload bilateral LE , following recent lumbar spinal fusion at [place] 3 weeks prior, without evidence for HFrEF at this time
-history of US venous insufficiency
-Cont IV Lasix to reduce edema/compression devices and Julian wrap's
-Consider Vascular consultation as OP Dr. Gonsalez
-repeat echocardiogram
- dropping weight- 6kgs since admission
- monitor strict i and os and daily weights
#Tachycardia with history of tachyarrhythmia ? p afib, Deicer Repairer Pneumatic is Dr. Arshad , no CP, no SOB
-monitor on tele, s/p Dilt x 1 in ED
-consult Cardiology
-add Cardizem
-repeat EKG
# Echo 10/15/23 normal LV size and systolic function EF 65-70%, mild LVH, mild AR, mild TR
-repeat echo this admission
# Hypothyroidism
-cont levothyroxine
# Hypokalemia
-replete aggressively as on lasix
-Check Mg
-repeat labs in am
Pro-BNP 349
#RA
- Stable. Arava is on hold OP s/p lumber spinal fusion, continue to hold.
# HLD
- cont crestor
# Chronic Back Pain/narcotic use
- cont pain meds
- PT OT
# Left Hum fx-
- ortho c/s if needed
- no c/o acute symptoms nor trauma related to these findings, no new onset of symptoms and she has an OP Ortho follow-up in June with her Surgeon who performed the shoulder surgery repair (which as in June). She will contact her OP ortho unless
any further issues while inpatient.
# Peripheral Neuropathy-
- cont gabapentin
DVT Prophylaxis: Lovenox
Code Status: Full
Time spent coordinating care, review of plan of care with resident, review of records, med rec, consults, notes, labs, rads, d/w nursing � 59 mins
Original Note:
Today's Communication/Plan
-
Continue IV Lasix
Continue telemetry
Started on diltiazem
Potassium replete
Assessment / Plan
Assessment / Plan
#Lower extremity edema with erythema
No evidence of HFrEF at this time
Echo 10/15/23 normal LV size and systolic function EF 65-70%, mild LVH, mild AR, mild TR
proBNP�349
Repeat echo today- Normal left ventricular chamber size. Mild concentric left ventricular
hypertrophy. Hyperdynamic left ventricular systolic function. Normal regional
wall motion. LV ejection fraction is 65-70%.
Mild to moderate mitral regurgitation.
Mild aortic regurgitation.
Mild to moderate tricuspid regurgitation. Estimated pulmonary artery pressure
of 50-55 mmHg.
Compared to the previous echo from Sep 2023, MR, AR and TR were mild at that
time.
-history of US venous insufficiency 09/16/22 with findings as follows on US: -Insufficiency of BOTH below knee greater saphenous veins as well as the LEFT small saphenous vein. Isolated varicosity noted within the medial aspect of the left thigh,
Incompetent bank credit card collection clerk vein within the medial left ankle, Deep venous reflux within the LEFT popliteal vein.
-Continue IV Lasix
-julian wrap legs b/l
Trend weights, patient lost 6 kgs since admission
#Tachycardia with history of tachyarrhythmia
-monitor on tele- sinus rhythm with frequent PACs
-s/p Dilt x 1 in ED
Cardiology consult
Start low dose Diltiazem 120 mg for tachycardia, PACs/ectopy which is chronic. History of pruritus with metoprolol.
#s/p recent lumbar fusion L2-L3 laminectomy 3 weeks ago [facility] March 23, 2024
# Hypothyroidism
Continue levothyroxine
# Mild hypokalemia
-K 3.0 ,
replete and monitor
-Check Mg
#anemic on admission
hemoglobin 9.2. Currently 8.7.
May be secondary to recent orthopedic surgery.
Continue to monitor and trend.
#RA
Arava is on hold OP s/p lumber spinal fusion, continue to hold.
DVT Prophylaxis: Lovenox
Anticipated Discharge: 24 - 48 hours
Subjective/Interval History
-
Date of Service: April 18, 2024
Patient reports having worsening pain in the lower extremities.
Objective Data
-
Labs:
Laboratory Results
04/18/24 04/18/24
06:24 09:37
WBC 5.5
Hgb 8.7 L
Hct 27.2 L
Plt Count 360
Sodium Cancelled
Potassium Cancelled
Chloride Cancelled
Carbon Dioxide Cancelled
BUN Cancelled
Creatinine Cancelled
Glucose Cancelled
Calcium Cancelled
Total Bilirubin Cancelled
AST Cancelled
ALT Cancelled
Alkaline Phosphatase Cancelled
Vital Signs:
Vital Signs
Temp Pulse Resp BP Pulse Ox
99.8 F 100 16 118/60 94
04/18/24 15:30 04/18/24 15:30 04/18/24 15:30 04/18/24 15:30 04/18/24 15:30
I&O
04/17/24 04/18/24 04/19/24
06:59 06:59 06:59
Intake Total 480 / 480 1360 / 1360 360 / 360
Output Total 1800 / 1800
Balance 480 / 480 -440 / -440 360 / 360
Review of Systems
-
All other systems: Reviewed and negative (As per HPI)
Physical Exam
-
General: Well Developed and Well Nourished
HEENT: Normocephalic and Atraumatic
Respiratory: Clear to Auscultation
Cardiac: S1/S2 and Tachycardic
Musculoskeletal: Edema, Right Lower Extrem, Edema, Left Lower Extrem and Other (Bilateral skin changes consistent with chronic venous stasis, warm and tender)
Neuro: Awake, Alert, Oriented and AO x 3
Psych: Calm
[2024-04-18 19:44] VITALS: BP 125/57
[2024-04-18 23:12] VITALS: BP 109/57
[2024-04-19 03:05] VITALS: BP 103/68
[2024-04-19] MEDS: SYNTHROID 100 MCG PO (05:27)
[2024-04-19 06:00] VITALS: BMI 27.7
[2024-04-19 07:00] VITALS: BP 104/51
[2024-04-19] MEDS: NEURONTIN 300 MG PO ×3 (07:59→21:47)
[2024-04-19] MEDS: CARDIZEM CD 120 MG PO (07:59)
[2024-04-19] MEDS: LASIX 40 MG IV ×2 (08:00→15:45)
[2024-04-19] MEDS: ROXICODONE 10 MG PO ×3 (08:06→21:48)
[2024-04-19] MEDS: FLEXERIL 10 MG PO (08:06)
[2024-04-19 08:31] LABS: Hematocrit 27.8 % (37.0-47.0); Hemoglobin 8.7 g/dL (12.0-16.0); Mean Corp Hgb Conc. 31.3 g/dL (33.0-37.0); Mean Corpuscular Hgb 30.4 pg (27.0-31.0); Mean Corpuscular Volume 97.2 fL (81.0-99.0); Mean Platelet Volume 9.6 fL (7.4-10.4); Platelet Count 350 10^3/uL (130-400); Red Blood Cell Count 2.86 10^6/uL (4.20-5.40); Red Cell Dist. Width 14.7 % (11.5-14.5); White Blood Cell Count 5.6 10^3/uL (4.8-10.8)
[2024-04-19 08:36] LABS: Blood Urea Nitrogen 13 mg/dl (7-17); Calcium 9.1 mg/dl (8.4-10.2); Carbon Dioxide 33 mmol/L (22-30); Chloride 96 mmol/L (98-107); Estimated Creatinine Clearance 87 ml/min; Glucose 98 mg/dl (70-99); Magnesium 1.7 mg/dl (1.6-2.3); Potassium 4.1 mmol/L (3.5-5.1); Sodium 136 mmol/L (135-145); eGFR > 60.00
--- NOTE | 2024-04-19 09:39 | W.PN.CARDCBS ---
Addendum entered and electronically signed by Harpal Weller MD 04/19/24 14:45:
Diagnosis is acute diastolic CHF.
Addendum entered and electronically signed by Harpal Weller MD 04/19/24 13:43:
I saw and examined the patient.
The VICE PRESIDENT OF MANUFACTURING or PA's note was reviewed and I agree with the note.
Comment: General: Well developed, well nourished in NAD.
Neck: Supple, no JVD, HJR, carotids +2 B/L, no bruits bilaterally.
Heart: Non displaced PMI, RRR, no murmurs, No S3, S4, no rubs.
Lungs: Clear to auscultation bilaterally, no wheeze, rhonchi, rubs bilaterally,
normal expiratory phase.
Extremities: Bilateral lower extremity edema�left greater than right
Neuro: Grossly nonfocal, awake, alert and oriented x3.
Telemetry with brief episodes of A-fib. Will start anticoagulation Eliquis. Check left lower extremity ultrasound to exclude DVT. Will add metolazone in order to increase diuresis. She still feels she might be 9 or 10 pounds over her dry weight
and diuresis seems to have plateaued. Discussed with primary service in person.
Original Note:
Today's Communication / Plan
-
Start anticoagulation Eliquis 5 mg BID for PAF
Continue IV diuresis for another 24 hours then consider transition to oral diuretic
Replete potassium
Continue to monitor on telemetry
Impression / Plan
-
.
Primary hospital admitting clerk: Dr. Arshad
Impression:
Presented w/ increased lower extremity edema, weight gain
Increased lower extremity edema with erythema with history of lymphedema and known venous stasis
Anemia
s/p recent lumbar fusion L2-L3 laminectomy [facility] March 23, 2024
Multiple orthopedic surgeries, the patient says over 30
Lymphedema
Chronic venous insufficiency, she has seen vascular and was getting lymphatic pumps
HTN
Hyperlipidemia
Rheumatoid arthritis
Mild mitral regurgitation and tricuspid regurgitation and aortic regurgitation
Chronic PACs with recent monitor
History SVT with hx AVNRT ablation Sep 2018 Dr Brown
Hypothyroidism
right foot and ankle surgery November 2019
Left shoulder surgery April 2023
Hip dislocation May 2022, to OR [place]
Echo 04/18/2024: EF 65 to 70%. Mild concentric LVH. Hyperdynamic LV with normal regional wall motion. Mild to moderate MR. Mild AI. Mild to moderate TR with PAP 50-55 mmHg.
Echo September 2023: EF 65 to 70% with mild LVH, mild MR, mild AR, mild TR, PASP 30 to 35 mmHg no change from 2020
Lexiscan MIBI March 2021 showed normal myocardial perfusion
Recent 3-day monitor March 2024: Normal sinus rhythm throughout the study with average heart rate 96 bpm, frequent atrial tachycardia longest 19 beats, frequent PACs over 20,000/day, rare PVCs
Plan:
Heart failure with preserved ejection fraction
Weight slowly trending down. Has lost at least 8 pounds if not more since admission. Patient reports she is still above her baseline which is mid 160s.
Cont diuresis IV Lasix 40 mg bid given her supposed 20 pound weight gain as well as lower extremity edema and erythema. Consider transitioning to oral Lasix within the next 24 hours
proBNP 349 on admit.
She has limited capability to raise her legs due to chronic hip dislocation and significant orthopedic issues.
Replete lytes as needed, K+ 4.1. Give 40 meq today given on going diuresis
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 Also elevated PAP of 50 to 55 mmHg.
New to Diltiazem 120 mg QD on 04/18/2024 for tachycardia, PACs/ectopy which is chronic. . Per review of tele looks like runs of PAF w/ RVR in last 24 hours. Patient agreeable to start Eliquis 5 mg BID. Will consult case management. Low BP currently
does not allow for increase of Diltazem at this time but may be able to uptitrate once of oral diuresis. History of pruritus with metoprolol.
Complaining of worsening left lower extremity swelling and pain. Patient reports Julian wrap slipped down and her left calf is now very painful and swollen. Her left foot is painful as well. Lower extremity venous Doppler was negative for DVT
04/16/24. Monitor for cellulitis, although redness continues to have improve.
PT/OT
Noted to be anemic on admission with hemoglobin 9.2. Currently stable at 8.7. May be secondary to recent orthopedic surgery. Continue to monitor and trend. Consider heme testing stool. Defer to primary service
Continue statin for hyperlipidemia
Discussed with primary service.
History of Present Illness 04/16/24:
Ana is a patient known to me last in the office January 2024 with a history of SVT, chronic lymphedema and venous insufficiency, frequent PVCs, hyperlipidemia, rheumatoid arthritis who has had multiple orthopedic surgeries. She stated that she
has had over 30 surgeries. She was deemed acceptable cardiac risk during the January visit for lumbar fusion surgery which she underwent at [facility] including L2-L3 laminectomy March 23, 2024.
Over the last 2 weeks she has noted increased lower extremity edema with redness over the last week of her lower extremities. Lasix 40 mg daily did not improve. She took additional Lasix on her own including 80 mg daily without improvement. She
denies chest pain or shortness of breath. She saw her PCP today in the office and was recommended ER evaluation. She is being admitted for lower extremity edema/volume overload with known lymphedema and venous insufficiency. She received Lasix 80
mg IV in the emergency room.
Progress Note - Swing Type Lathe Operator
Subjective
Date of Service: April 19, 2024
Patient seen and examined. Patient reports she is feeling fair. She continues to have left lower extremity tightness and pain particularly in her calf and foot. Reports improving shortness of breath, lower extremity edema/redness.
Objective
Labs:
04/19/24 06:32
05/21/24 06:32
Labs
Hgb 8.7 g/dL (12.0-16.0) L 04/19/24 06:32
Hct 27.8 % (37.0-47.0) L 04/19/24 06:32
Plt Count 350 10^3/uL (130-400) 04/19/24 06:32
Sodium 136 mmol/L (135-145) 04/19/24 06:32
Potassium 4.1 mmol/L (3.5-5.1) D 04/19/24 06:32
BUN 13 mg/dl (7-17) 04/19/24 06:32
Creatinine 0.6 mg/dL (0.6-1.0) 04/19/24 06:32
Glucose 98 mg/dl (70-99) 04/19/24 06:32
Troponins
04/16/24 04/16/24
18:22 23:50
Troponin I < 0.012 < 0.012
Vital Signs and I&O:
Vital Signs
Temp Pulse Resp BP Pulse Ox
99 F 95 16 104/51 95
04/19/24 07:00 04/19/24 07:59 04/19/24 07:00 04/19/24 07:59 04/19/24 07:00
Vital Signs
Temp Pulse Resp BP Pulse Ox
99 F 95 16 104/51 95
04/19/24 07:00 04/19/24 07:59 04/19/24 07:00 04/19/24 07:59 04/19/24 07:00
Intake & Output
04/17/24 04/18/24 04/19/24 04/20/24
06:59 06:59 06:59 06:59
Intake Total 480 / 480 1360 / 1360 840 / 840
Output Total 1800 / 1800
Balance 480 / 480 -440 / -440 840 / 840
Physical Exam
Physical Exam
GEN: No distress, awake, Ox3, sitting on edge of bed
HEENT: supple, anicteric, mmm
LUNGS: CTA, no wheezes/rales
CV: Reg but with frequent ectopy, S1/S2, no murmur, rub or gallop
ABD: soft, BS+, NT/ND
EXT: Left calf enlarged/swollen, firm, painful to touch. Left foot/ankle +1 edema, right lower extremity trace edema. Bilateral skin changes consistent with chronic venous stasis
NEURO: Gross non-focal
SKIN: No rash, warm, dry, pink
[2024-04-19 11:00] VITALS: BP 101/61
--- NOTE | 2024-04-19 11:48 | PTCARENOTE ---
reviewing tele pt appears to have afib at times, d/w cardiology. obtain EKG and start AC
[2024-04-19] MEDS: KCL 40 MEQ PO (11:53)
[2024-04-19] MEDS: ELIQUIS 5 MG PO ×2 (11:53→20:51)
--- NOTE | 2024-04-19 14:39 | PN.CDI ---
CDI
- -
CDI:
Physician Documentation Request
Admit Date: 04/16/24 14:03
Dear Doctor /PA,
Please review the following and provide your response in the progress notes.
Clinical Indicators:
Pt admitted with Presented w/ increased lower extremity edema, weight gain
Cardiology progress note 04/19, ' Heart failure with preserved ejection fraction Weight slowly trending down. Has lost at least 8 pounds if not more since admission. Patient reports she is still above her baseline which is mid 160s.Cont diuresis
IV Lasix 40 mg bid given her supposed 20 pound weight gain as well as lower extremity edema and erythema...'
Clarify which of the following accurately represents the acuity of the ( HFpEF).
Acute
Acute on Chronic
Other
Use of terms such as suspected, likely, concern for, or probable (associated with a specific diagnosis that is being evaluated, monitored, or treated as if it exists) are acceptable and can be coded in the inpatient setting, when documented at the
time of discharge.
Thank you,
Erin Bravo RN
CDI Specialist
[place] [facility]
Please use your independent medical judgment in providing your response.
[2024-04-19 15:00] VITALS: BP 106/43
[2024-04-19] MEDS: ZAROXOLYN 2.5 MG PO (15:16)
[2024-04-19] MEDS: CRESTOR 5 MG PO (17:01)
[2024-04-19 19:00] VITALS: BP 137/94
--- NOTE | 2024-04-19 19:26 | W.PN.HOSP.TC ---
Addendum entered and electronically signed by Tono Saavedra MD 04/19/24 22:20:
Attending Addendum-
I saw and evaluated the patient. I reviewed the resident�s note and agree with findings and plan as documented in the resident�s note. complains of LLE pain and swelling. Full 12 point ROS reviewed and negative except as documented Exam: Vitals
reviewed in chart GEN-NAD Heart irreg lungs clear abd soft LE +1 pitting edema pos homans sign LLE Back- incision CDI Plan:
# B/L venous insufficiency with associated worsening peripheral edema & volume overload bilateral LE , following recent lumbar spinal fusion at [place] 3 weeks prior, without evidence for HFrEF at this time
-history of US venous insufficiency
-Cont IV Lasix to reduce edema/compression devices and Julian wrap's
-Consider Vascular consultation as OP Dr. Gonsalez
- dropping weight- 8kgs since admission
- monitor strict i and os and daily weights
# AE HFpEF
- new
- IV lasix BID transition to PO in am
- metolazone added x 1
- strict I and Os
- daily weights
- repeat echo 04/18- Normal left ventricular chamber size. Mild concentric left ventricular
hypertrophy. Hyperdynamic left ventricular systolic function. Normal regional
wall motion. LV ejection fraction is 65-70%.
Mild to moderate mitral regurgitation.
Mild aortic regurgitation.
Mild to moderate tricuspid regurgitation. Estimated pulmonary artery pressure
of 50-55 mmHg.
Compared to the previous echo from Sep 2023, MR, AR and TR were mild at that
time.
#Tachycardia with history of tachyarrhythmia- p afib vs frequent PAC's, Home Visits Nurse is Dr. Arshad
-monitor on tele
-Cardiology input appreciated
-cont new cardizem
-repeat EKG
-added eliquis
# LLE Edema/pain-
-d/w cards
-repeat LLE doppler r/o DVT
# Hypothyroidism
-cont levothyroxine
# Hypokalemia
-replete aggressively as on lasix
-Check Mg
-repeat labs in am
#RA
- Stable. Arava is on hold OP s/p lumber spinal fusion, continue to hold.
# HLD
- cont crestor
# Chronic Back Pain/narcotic use
- cont pain meds
- PT OT
# Left Hum fx-
- ortho c/s if needed
- no c/o acute symptoms nor trauma related to these findings, no new onset of symptoms and she has an OP Ortho follow-up in June with her Surgeon who performed the shoulder surgery repair (which as in June). She will contact her OP ortho unless
any further issues while inpatient.
# Peripheral Neuropathy-
- cont gabapentin
DVT Prophylaxis: Lovenox
Code Status: Full
Dispo DC home with HC in am
Time spent coordinating care, review of plan of care with resident, review of records, med rec, consults, notes, labs, rads, d/w nursing and cardiology � 61 mins
Original Note:
Today's Communication/Plan
-
Eliquis, 5 mg twice daily
Ultrasound peripheral venous�no evidence of DVT
Continue IV diuresis
Continue telemetry monitoring
Assessment / Plan
Assessment / Plan
#Lower extremity edema with erythema
No evidence of HFrEF at this time
Echo 10/15/23 normal LV size and systolic function EF 65-70%, mild LVH, mild AR, mild TR
proBNP�349
Repeat echo today- Normal left ventricular chamber size. Mild concentric left ventricular
hypertrophy. Hyperdynamic left ventricular systolic function. Normal regional
wall motion. LV ejection fraction is 65-70%.
Mild to moderate mitral regurgitation.
Mild aortic regurgitation.
Mild to moderate tricuspid regurgitation. Estimated pulmonary artery pressure
of 50-55 mmHg.
Compared to the previous echo from Sep 2023, MR, AR and TR were mild at that
time.
-history of US venous insufficiency 09/16/22 with findings as follows on US: -Insufficiency of BOTH below knee greater saphenous veins as well as the LEFT small saphenous vein. Isolated varicosity noted within the medial aspect of the left thigh,
Incompetent metal handler vein within the medial left ankle, Deep venous reflux within the LEFT popliteal vein.
-Continue IV Lasix, transition to oral Lasix tomorrow
-julian wrap legs b/l
Trend weights, patient lost 7 kgs since admission
Peripheral vascular ultrasound today-no evidence of DVT
#Tachycardia with history of tachyarrhythmia
s/p Dilt x 1 in ED
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
Cardiology consult
Started low dose Diltiazem 120 mg for tachycardia. History of pruritus with metoprolol.
Anticoagulation with Eliquis
Continue telemetry monitoring
#s/p recent lumbar fusion L2-L3 laminectomy 3 weeks ago [facility] March 23, 2024
# Hypothyroidism
Continue levothyroxine
# Hypokalemia
Potassium 4.1 today
Continue repletion, monitor
#anemic on admission
hemoglobin 9.2. Currently 8.7.
May be secondary to recent orthopedic surgery.
Continue to monitor and trend.
Iron studies for outpatient follow-up
#RA
Arava is on hold OP s/p lumbar spinal fusion, continue to hold.
#Hyperlipidemia
Continue rosuvastatin
#Peripheral neuropathy
Continue gabapentin
#PT/OT evaluation
Anticipated Discharge: Within 24 hours
Subjective/Interval History
-
Date of Service: April 19, 2024
Left lower extremity swelling has worsened compared to yesterday. Patient reports pain as before along with the swelling.
No chest pain, shortness of breath. Patient is apprehensive for being started on medications for arrhythmia.
Objective Data
-
Labs:
Laboratory Results
04/19/24
06:32
WBC 5.6
Hgb 8.7 L
Hct 27.8 L
Plt Count 350
Sodium 136
Potassium 4.1 D
Chloride 96 L
Carbon Dioxide 33 H
BUN 13
Creatinine 0.6
Glucose 98
Calcium 9.1
Vital Signs:
Vital Signs
Temp Pulse Resp BP Pulse Ox
98.9 F 80 16 115/60 91
04/19/24 15:00 04/19/24 15:00 04/19/24 15:00 04/19/24 15:45 04/19/24 15:00
I&O
04/18/24 04/19/24 04/20/24
06:59 06:59 06:59
Intake Total 1360 / 1360 840 / 840 1020 / 1020
Output Total 1800 / 1800
Balance -440 / -440 840 / 840 1020 / 1020
Review of Systems
-
All other systems: Reviewed and negative (As per HPI)
Physical Exam
-
General: Well Developed and Well Nourished
HEENT: Normocephalic and Atraumatic
Respiratory: Clear to Auscultation
Cardiac: S1/S2 and Irregular Rhythm
Musculoskeletal: Edema, Right Lower Extrem, Edema, Left Lower Extrem (Tenderness) and Other (Back surgery incision wound-clear, dry, intact.)
Neuro: Awake, Alert, Oriented and AO x 3
[2024-04-19 22:51] VITALS: BP 119/55
[2024-04-20] VITALS (7 sets, daily range): BP systolic 96–130; BP diastolic 51–70; BMI 27.1; BMI 27.2
[2024-04-20] MEDS: SYNTHROID 100 MCG PO (05:37)
[2024-04-20] MEDS: ROXICODONE 10 MG PO ×4 (06:00→22:41)
[2024-04-20 07:52] LABS: % Basophils 0.3 % (0-2); % Eosinophils 5.5 % (0-6); % Immature Granulocytes 0.4 % (0-0.5); % Lymphocytes 20.2 % (20.5-51.1); % Monocytes 12.5 % (1.7-9.3); % Neutrophils 61.1 % (42.2-75.2); Absolute Eosinophils 0.4 10^3/uL (0-0.7); Absolute Lymphocytes 1.5 10^3/uL (1.2-3.4); Absolute Monocytes 0.9 10^3/uL (0.1-0.6); Absolute Neutrophils 4.5 10^3/uL (1.4-6.5); Hematocrit 28.3 % (37.0-47.0); Hemoglobin 9.1 g/dL (12.0-16.0); Mean Corp Hgb Conc. 32.2 g/dL (33.0-37.0); Mean Corpuscular Hgb 29.9 pg (27.0-31.0); Mean Corpuscular Volume 93.1 fL (81.0-99.0); Mean Platelet Volume 9.2 fL (7.4-10.4); Nucleated Red Blood Cells % 0 %; Platelet Count 390 10^3/uL (130-400); Red Blood Cell Count 3.04 10^6/uL (4.20-5.40); Red Cell Dist. Width 14.5 % (11.5-14.5); White Blood Cell Count 7.3 10^3/uL (4.8-10.8)
[2024-04-20 08:18] LABS: ALT (SGPT) 12 U/L (0-35); AST (SGOT) 22 U/L (14-36); Albumin 3.4 g/dl (3.5-5.0); Alkaline Phosphatase 74 U/L (38-126); Blood Urea Nitrogen 18 mg/dl (7-17); Calcium 9.4 mg/dl (8.4-10.2); Carbon Dioxide 34 mmol/L (22-30); Chloride 92 mmol/L (98-107); Estimated Creatinine Clearance > 125 ml/min; Glucose 97 mg/dl (70-99); Potassium 3.7 mmol/L (3.5-5.1); Sodium 134 mmol/L (135-145); Total Bilirubin 0.5 mg/dl (0.2-1.3); Total Protein 5.6 g/dl (6.3-8.2); eGFR > 60.00
[2024-04-20] MEDS: NEURONTIN 300 MG PO ×3 (08:27→21:34)
[2024-04-20] MEDS: CARDIZEM CD 120 MG PO ×2 (08:27→20:20)
[2024-04-20] MEDS: ELIQUIS 5 MG PO ×2 (08:27→20:20)
[2024-04-20] MEDS: LASIX 40 MG IV (08:28)
--- NOTE | 2024-04-20 09:13 | CM ---
Placed a call to [facility] to check medication costs for patient
Spoke with a pharmacist named, Melvin who stated the following
Eliquis 5mg BID $30
Xarelto 20 mg 1x per day $30
Will update Cardiology.
Plan: Case management will continue to follow and assist with discharge planning. Home with services.
--- NOTE | 2024-04-20 09:28 | W.PN.CARDCBS ---
Today's Communication / Plan
-
Weight slowly trending down. Has lost at least 8 pounds since admission. Patient reports she is still above her baseline which is mid 160s.
Cont diuresis IV Lasix 40 mg bid given her supposed 20 pound weight gain as well as lower extremity edema and erythema. Consider transitioning to oral Lasix within the next 24 hours
proBNP 349 on admit.
She has limited capability to raise her legs due to chronic hip dislocation and significant orthopedic issues.
Replete lytes as needed
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 Also elevated PAP of 50 to 55 mmHg.
Increase Diltiazem 120 mg BID for tachycardia, PACs/ectopy which is chronic.
She was started on Eliquis for possible PAFib. Case management evaluating for cost.
History of pruritus with metoprolol.
Complained of worsening left lower extremity swelling and pain. Patient reported CAMMIE wrap slipped down and her left calf remains painful and swollen. Her left foot is painful as well. Lower extremity venous Doppler was negative for DVT 04/16/24
and u/s pending 04/20. Monitor for cellulitis, although redness continues to have improve.
Impression / Plan
-
.
Primary manager linux: Dr. Arshad
Impression:
Frequent atrial tachycardia and PACs
Presented w/ increased lower extremity edema, weight gain
Increased lower extremity edema with erythema with history of lymphedema and known venous stasis, left greater than right
Anemia
s/p recent lumbar fusion L2-L3 laminectomy [facility] March 23, 2024
Multiple orthopedic surgeries, the patient says over 30
Lymphedema
Chronic venous insufficiency, she has seen vascular and was getting lymphatic pumps
HTN
Hyperlipidemia
Rheumatoid arthritis
Mild mitral regurgitation and tricuspid regurgitation and aortic regurgitation
Chronic PACs with recent monitor
History SVT with hx AVNRT ablation Sep 2018 Dr Brown
Hypothyroidism
right foot and ankle surgery November 2019
Left shoulder surgery April 2023
Hip dislocation May 2022, to [place]
Echo 04/18/2024: EF 65 to 70%. Mild concentric LVH. Hyperdynamic LV with normal regional wall motion. Mild to moderate MR. Mild AI. Mild to moderate TR with PAP 50-55 mmHg.
Echo September 2023: EF 65 to 70% with mild LVH, mild MR, mild AR, mild TR, PASP 30 to 35 mmHg no change from 2020
Lexiscan MIBI March 2021 showed normal myocardial perfusion
Recent 3-day monitor March 2024: Normal sinus rhythm throughout the study with average heart rate 96 bpm, frequent atrial tachycardia longest 19 beats, frequent PACs over 20,000/day, rare PVCs
Plan:
Weight slowly trending down. Has lost at least 8 pounds since admission. Patient reports she is still above her baseline which is mid 160s.
Cont diuresis IV Lasix 40 mg bid given her supposed 20 pound weight gain as well as lower extremity edema and erythema. Consider transitioning to oral Lasix within the next 24 hours
proBNP 349 on admit.
She has limited capability to raise her legs due to chronic hip dislocation and significant orthopedic issues.
Replete lytes as needed
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 Also elevated PAP of 50 to 55 mmHg.
Increase Diltiazem 120 mg BID for tachycardia, PACs/ectopy which is chronic.
She was started on Eliquis for possible PAFib. Case management evaluating for cost.
History of pruritus with metoprolol.
Complained of worsening left lower extremity swelling and pain. Patient reported CAMMIE wrap slipped down and her left calf remains painful and swollen. Her left foot is painful as well. Lower extremity venous Doppler was negative for DVT 04/16/24
and u/s pending 04/20. Monitor for cellulitis, although redness continues to have improve.
PT/OT
Noted to be anemic on admission with hemoglobin 9.2 but remains stable.
Continue statin for hyperlipidemia
Discussed with primary service.
History of Present Illness 04/16/24:
Ana is a patient known to me last in the office January 2024 with a history of SVT, chronic lymphedema and venous insufficiency, frequent PVCs, hyperlipidemia, rheumatoid arthritis who has had multiple orthopedic surgeries. She stated that she
has had over 30 surgeries. She was deemed acceptable cardiac risk during the January visit for lumbar fusion surgery which she underwent at [facility] including L2-L3 laminectomy March 23, 2024.
Over the last 2 weeks she has noted increased lower extremity edema with redness over the last week of her lower extremities. Lasix 40 mg daily did not improve. She took additional Lasix on her own including 80 mg daily without improvement. She
denies chest pain or shortness of breath. She saw her PCP today in the office and was recommended ER evaluation. She is being admitted for lower extremity edema/volume overload with known lymphedema and venous insufficiency. She received Lasix 80
mg IV in the emergency room.
Progress Note - Specialty Cook
Subjective
Date of Service: April 20, 2024
Pt seen and examined. No cp
Objective
Labs:
04/20/24 07:31
04/20/24 07:31
Labs
Hgb 9.1 g/dL (12.0-16.0) L 04/20/24 07:31
Hct 28.3 % (37.0-47.0) L 04/20/24 07:31
Plt Count 390 10^3/uL (130-400) 04/20/24 07:31
Sodium 134 mmol/L (135-145) L 04/20/24 07:31
Potassium 3.7 mmol/L (3.5-5.1) 04/20/24 07:31
BUN 18 mg/dl (7-17) H 04/20/24 07:31
Creatinine 0.6 mg/dL (0.6-1.0) 04/20/24 07:31
Glucose 97 mg/dl (70-99) 04/20/24 07:31
Vital Signs and I&O:
Vital Signs
Temp Pulse Resp BP Pulse Ox
98.2 F 101 18 121/58 94
04/20/24 07:00 04/20/24 08:27 04/20/24 07:00 04/20/24 08:27 04/20/24 07:00
Vital Signs
Temp Pulse Resp BP Pulse Ox
98.2 F 101 18 121/58 94
04/20/24 07:00 04/20/24 08:27 04/20/24 07:00 04/20/24 08:27 04/20/24 07:00
Intake & Output
04/18/24 04/19/24 04/20/24 04/21/24
06:59 06:59 06:59 06:59
Intake Total 1360 / 1360 840 / 840 1200 / 1200
Output Total 1800 / 1800
Balance -440 / -440 840 / 840 1200 / 1200
Physical Exam
Physical Exam
General: No acute distress, AAOX3
Neck: Negative JVD
Heart: Tachycardia b/l, Negative S3 positive S1/S2, Negative S4, No murmur
Lungs: CTA b/l, negative wheezes/rales/rhonchi
Abd: Positive BS, NT/ND, neg rebound/rigidity/guarding
Ext: Negative cyanosis/clubbing. b/l left great than right LE edema. Left calf enlargement
Neuro: nonfocal
[2024-04-20] MEDS: KCL 40 MEQ PO ×2 (11:36→17:26)
[2024-04-20] MEDS: ZAROXOLYN 2.5 MG PO (11:37)
--- NOTE | 2024-04-20 15:05 | W.PN.HOSP.TC ---
Addendum entered and electronically signed by Tono Saavedra MD 04/20/24 22:50:
Attending Addendum-
I saw and evaluated the patient. I reviewed the resident�s note and agree with findings and plan as documented in the resident�s note. complains of worsening LLE pain and calf /foot tenderness. Full 12 point ROS reviewed and negative except as
documented Exam: Vitals reviewed in chart GEN-NAD Heart irreg lungs clear abd soft LE +1 pitting edema LLE TTP foot red warm +2 DP LLE Back- incision CDI Plan:
# LLE Cellulitis
- febrile
- start ancef
- monitor closely for resolution
# B/L venous insufficiency with associated worsening peripheral edema & volume overload bilateral LE , following recent lumbar spinal fusion at [place] 3 weeks prior, without evidence for HFrEF at this time
-history of US venous insufficiency
-Cont IV Lasix to reduce edema/compression devices and Julian wrap's
-Consider Vascular consultation as OP Dr. Gonsalez
- dropping weight- 8kgs since admission
- monitor strict i and os and daily weights
# AE HFpEF
- weights decreasing
- IV lasix BID transition to PO 40mg PO BID
- strict I and Os
- daily weights
- repeat echo 04/18- Normal left ventricular chamber size. Mild concentric left ventricular
hypertrophy. Hyperdynamic left ventricular systolic function. Normal regional
wall motion. LV ejection fraction is 65-70%.
Mild to moderate mitral regurgitation.
Mild aortic regurgitation.
Mild to moderate tricuspid regurgitation. Estimated pulmonary artery pressure
of 50-55 mmHg.
Compared to the previous echo from Sep 2023, MR, AR and TR were mild at that
time.
#Tachycardia with history of tachyarrhythmia- p afib vs frequent PAC's, Dialer is Dr. Arshad
-monitor on tele
-Cardiology input appreciated
-cont new cardizem
-repeat EKG
-cont eliquis
# LLE Edema/pain-
- d/w cards
- repeat LLE doppler r/o DVT- neg for clot
- likely from cellulitis
- check foot and ankle x ray- neg for acute fracture
- check BERTHA
# Hypothyroidism
-cont levothyroxine
# Hypokalemia
- resolved
-replete aggressively as on lasix
-repeat labs in am
#RA
- Stable. Marsha is on hold OP s/p lumber spinal fusion, continue to hold.
# HLD
- cont crestor
# Chronic Back Pain/narcotic use
- cont pain meds
- PT OT
# Left Hum fx-
- ortho c/s if needed
- no c/o acute symptoms nor trauma related to these findings, no new onset of symptoms and she has an OP Ortho follow-up in June with her Surgeon who performed the shoulder surgery repair (which as in June). She will contact her OP ortho unless
any further issues while inpatient.
# Peripheral Neuropathy-
- cont gabapentin
DVT Prophylaxis: Lovenox
Code Status: Full
Dispo hopeful DC home with HC 24-48 hours
Time spent coordinating care, review of plan of care with resident, review of records, med rec, consults, notes, labs, rads, d/w nursing and cardiology � 55 mins
Original Note:
Today's Communication/Plan
-
Oral Lasix
Continue telemetry
ABPI
X-ray foot/ ankle
CPK
Assessment / Plan
Assessment / Plan
#Lower extremity edema with erythema
LLE > RLE
Peripheral vascular ultrasound-no evidence of DVT
-Worsening left foot pain/pain around medial/ posterior knee, antalgic gait
�X-ray left ankle/foot
-ABPI
-No evidence of HFrEF at this time
Echo 10/15/23 normal LV size and systolic function EF 65-70%, mild LVH, mild AR, mild TR
proBNP�349
Repeat echo today- Normal left ventricular chamber size. Mild concentric left ventricular
hypertrophy. Hyperdynamic left ventricular systolic function. Normal regional
wall motion. LV ejection fraction is 65-70%.
Mild to moderate mitral regurgitation.
Mild aortic regurgitation.
Mild to moderate tricuspid regurgitation. Estimated pulmonary artery pressure
of 50-55 mmHg.
Compared to the previous echo from Sep 2023, MR, AR and TR were mild at that
time.
-history of US venous insufficiency 09/16/22 with findings as follows on US: -Insufficiency of BOTH below knee greater saphenous veins as well as the LEFT small saphenous vein. Isolated varicosity noted within the medial aspect of the left thigh,
Incompetent director of recruitment vein within the medial left ankle, Deep venous reflux within the LEFT popliteal vein.
Transitioned to oral Lasix 40 mg twice daily
-julian wrap legs b/l
-Trend weights, patient lost 8 kgs since admission
#Tachycardia with history of tachyarrhythmia
s/p Dilt x 1 in ED
monitoring and evaluation advisor�brief episodes of A-fib.
Cardiology consult
Continue diltiazem 120 mg, twice daily. History of pruritus with metoprolol.
Anticoagulation with Eliquis
Continue telemetry monitoring
#s/p recent lumbar fusion L2-L3 laminectomy 3 weeks ago [facility] March 23, 2024
# Hypothyroidism
Continue levothyroxine
# Hypokalemia
Potassium 3.7 today
Continue repletion, monitor
#anemic on admission
hemoglobin 9.2. Currently 8.7.
May be secondary to recent orthopedic surgery.
Continue to monitor and trend.
Iron studies for outpatient follow-up
#RA
Arava is on hold OP s/p lumbar spinal fusion, continue to hold.
#Hyperlipidemia
Continue rosuvastatin
#Peripheral neuropathy
Continue gabapentin
#PT/OT evaluation
Anticipated Discharge: 24 - 48 hours
Subjective/Interval History
-
Date of Service: April 20, 2024
Patient reports having worsening left foot/calf pain and swelling since yesterday. She is not able to ambulate because of pain. No chest pain, shortness of breath, racing heart, fever/chills.
Objective Data
-
Labs:
Laboratory Results
04/20/24
07:31
WBC 7.3
Hgb 9.1 L
Hct 28.3 L
Plt Count 390
Sodium 134 L
Potassium 3.7
Chloride 92 L
Carbon Dioxide 34 H
BUN 18 H
Creatinine 0.6
Glucose 97
Calcium 9.4
Total Bilirubin 0.5
AST 22
ALT 12
Alkaline Phosphatase 74
Vital Signs:
Vital Signs
Temp Pulse Resp BP Pulse Ox
99.7 F 107 20 128/53 94
04/20/24 11:00 04/20/24 11:00 04/20/24 11:00 04/20/24 11:00 04/20/24 11:00
I&O
04/19/24 04/20/24 04/21/24
06:59 06:59 06:59
Intake Total 840 / 840 1200 / 1200
Balance 840 / 840 1200 / 1200
Review of Systems
-
All other systems: Reviewed and negative (As per HPI)
Physical Exam
-
General: Well Developed and Well Nourished
HEENT: Normocephalic and Atraumatic
Respiratory: Clear to Auscultation
Cardiac: S1/S2 and Irregular Rhythm
Musculoskeletal: Other (left Lower extremity edema, erythema of the foot up to mid leg below the calf. Tenderness in the foot and posterior/ medial knee. Neurovasculature intact, antalgic gait)
Skin: Warm and Dry
Neuro: Awake, Alert, Oriented and AO x 3
[2024-04-20] MEDS: LASIX 40 MG PO (15:10)
[2024-04-20] MEDS: CRESTOR 5 MG PO (17:27)
--- NOTE | 2024-04-20 20:13 | W.PN.UPDATE ---
Update Note
Progress Note Update
Reported by the nursing staff that the patient has a fever 101.6, hr 113,bp 112/56, Spo2 94% RA. patient denied cough, sob, ache, or any other symptoms. New orders placed of lactic acid and blood cultures x 2 and will repeated UA.
[2024-04-20] MEDS: TYLENOL 650 MG PO (20:20)
[2024-04-21] MEDS: ANCEF 10 IV ×3 (00:13→16:02)
[2024-04-21 02:36] VITALS: BP 110/70
--- NOTE | 2024-04-21 03:16 | PTCARENOTE ---
Pt. had fever 101.6 at start of shift. MERLYN Bhagat notified. New order rec'd for tylenol, blood cultures, lactic acid, and UA. PRN Tylenol administered per orders. Pt. f/u temp 98.6. Plan of care ongoing.
[2024-04-21 03:44] VITALS: BP 99/57
[2024-04-21 03:50] VITALS: BMI 27.0
[2024-04-21] MEDS: SYNTHROID 100 MCG PO (05:55)
[2024-04-21 06:00] VITALS: BMI 27.0
[2024-04-21 07:22] LABS: Urine Albumin Trace (Neg - Trace); Urine Bilirubin Negative (Negative); Urine Character Clear (Clear); Urine Color Yellow; Urine Glucose Negative (Negative); Urine Ketone Negative (Negative); Urine Leukocyte 1+ (Negative); Urine Nitrite Negative (Negative); Urine Occult Blood Negative (Negative); Urine Urobilinogen Negative (Neg - 1+)
[2024-04-21 07:46] VITALS: BP 126/89
[2024-04-21 07:46] LABS: Urine Bacteria Few (Negative); Urine Red Blood Cell 0-2 /HPF (0-2); Urine Squamous Cell 0-2 /LPF (Few)
[2024-04-21 07:47] LABS: Hematocrit 28.7 % (37.0-47.0); Hemoglobin 9.1 g/dL (12.0-16.0); Mean Corp Hgb Conc. 31.7 g/dL (33.0-37.0); Mean Corpuscular Hgb 29.5 pg (27.0-31.0); Mean Corpuscular Volume 93.2 fL (81.0-99.0); Mean Platelet Volume 9.6 fL (7.4-10.4); Platelet Count 420 10^3/uL (130-400); Red Blood Cell Count 3.08 10^6/uL (4.20-5.40); Red Cell Dist. Width 14.2 % (11.5-14.5); White Blood Cell Count 7.5 10^3/uL (4.8-10.8)
[2024-04-21 08:06] LABS: ALT (SGPT) 13 U/L (0-35); AST (SGOT) 26 U/L (14-36); Albumin 3.4 g/dl (3.5-5.0); Alkaline Phosphatase 74 U/L (38-126); Blood Urea Nitrogen 26 mg/dl (7-17); Calcium 9.1 mg/dl (8.4-10.2); Carbon Dioxide 33 mmol/L (22-30); Chloride 88 mmol/L (98-107); Creatine Phosphokinase 225 U/L (30-135); Estimated Creatinine Clearance 58 ml/min; Glucose 108 mg/dl (70-99); Potassium 3.4 mmol/L (3.5-5.1); Sodium 131 mmol/L (135-145); Total Bilirubin 0.4 mg/dl (0.2-1.3); Total Protein 5.5 g/dl (6.3-8.2); eGFR > 60.00
[2024-04-21] MEDS: ELIQUIS 5 MG PO ×2 (08:09→20:03)
[2024-04-21] MEDS: CARDIZEM CD 120 MG PO ×2 (08:09→20:03)
[2024-04-21] MEDS: LASIX 40 MG PO (08:09)
[2024-04-21] MEDS: NEURONTIN 300 MG PO ×3 (08:09→22:04)
--- NOTE | 2024-04-21 09:49 | W.PN.HOSP.TC ---
Addendum entered and electronically signed by Tono Saavedra MD 04/21/24 22:50:
Attending Addendum-
I saw and evaluated the patient. I reviewed the resident�s note and agree with findings and plan as documented in the resident�s note. pain and redness much improved in LLE. Was febrile in last 24 hours. Full 12 point ROS reviewed and negative
except as documented Exam: Vitals reviewed in chart GEN-NAD Heart irreg lungs clear abd soft LE trace pitting edema LLE TTP foot less red not warm +2 DP LLE Back- incision CDI Plan:
# LLE Cellulitis
- resolving
- cont ancef
- monitor closely for resolution
- transition to PO abx on DC
# B/L venous insufficiency with associated worsening peripheral edema & volume overload bilateral LE , following recent lumbar spinal fusion at [place] 3 weeks prior
-history of US venous insufficiency
-transition to PO Lasix
-Consider Vascular consultation as OP Dr. Gonsalez
- dropping weight daily
- monitor strict i and os and daily weights
- check BERTHA r/o arterial insufficiency
# AE HFpEF
- weights decreasing
- IV lasix BID transition to PO 40mg PO BID
- strict I and Os
- daily weights
- repeat echo 04/18- Normal left ventricular chamber size. Mild concentric left ventricular
hypertrophy. Hyperdynamic left ventricular systolic function. Normal regional
wall motion. LV ejection fraction is 65-70%.
Mild to moderate mitral regurgitation.
Mild aortic regurgitation.
Mild to moderate tricuspid regurgitation. Estimated pulmonary artery pressure
of 50-55 mmHg.
Compared to the previous echo from Sep 2023, MR, AR and TR were mild at that
time.
#Tachycardia with history of tachyarrhythmia- p afib vs frequent PAC's, Wood Box Maker is Dr. Arshad
-monitor on tele
-Cardiology input appreciated
-cont new Cardizem
-cont eliquis
# Hypothyroidism
-cont levothyroxine
# Hypokalemia
- resolved
-replete aggressively as on lasix
-repeat labs in am
#RA
- Stable. Arava is on hold OP s/p lumber spinal fusion, continue to hold.
# HLD
- cont crestor
# Chronic Back Pain/narcotic use
- cont pain meds
- PT OT
# Left Hum fx-
- ortho c/s if needed
- no c/o acute symptoms nor trauma related to these findings, no new onset of symptoms and she has an OP Ortho follow-up in June with her Surgeon who performed the shoulder surgery repair (which as in June). She will contact her OP ortho unless
any further issues while inpatient.
# Peripheral Neuropathy-
- cont gabapentin
DVT Prophylaxis: Lovenox
Code Status: Full
Dispo-DC home with HC in am
Time spent coordinating care, review of plan of care with resident, review of records, med rec, consults, notes, labs, rads, d/w nursing and cardiology � 57 mins
Original Note:
Today's Communication/Plan
-
Magnesium supplementation
Potassium supplementation
Continue Ancef
Continue Eliquis and diltiazem.
Pending blood and urine cultures
Assessment / Plan
Assessment / Plan
Assessment-
74-year-old female with PMHx of rheumatoid arthritis on Arava (currently of immunosuppressant due to recent surgery), hypothyroidism, hypertension, multiple orthopedic surgeries presents to the ER due to increased left leg swelling and weight gain
times past 2 weeks - 20 pounds.
Impression-
Left lower extremity cellulitis.
Febrile yesterday. No temperature rise overnight.
Started on IV Ancef X day 2.
Pending blood and urine cultures.
Clinical improvement noted with much improvement in erythema, edema, tenderness, local rise of temperature in the LLE.
IV Ancef 3 days, plan to oral transition of antibiotics given significant improvement.
X-ray ankle, x-ray foot on left side-only significant for calcifications in the venous system and diffuse osteoporosis changes.
B/l venous insufficiency with associated worsening peripheral edema
Peripheral vascular ultrasound-no evidence of DVT
ABP Ultrasound - RIGHT LOWER EXTREMITY: BERTHA within normal limits at 1.08. TBI within normal limits at 0.92. Arterial duplex examination reveals multiphasic waveforms from the common femoral artery through the popliteal artery with no focal
velocity elevations to suggest significant stenosis.
LEFT LOWER EXTREMITY: BERTHA within normal limits at 1.08. TBI mildly reduced at 0.64 (prior 0.81). Arterial duplex examination reveals multiphasic waveforms from the common femoral artery to the mid superficial femoral artery. There is a transition
to monophasic waveforms in the distal superficial femoral artery and popliteal artery suggesting the presence of arterial disease at this location. There are no focal velocity elevations identified to suggest significant stenosis.
antalgic gait
US venous insufficiency 09/16/22 with findings as follows on US: -Insufficiency of BOTH below knee greater saphenous veins as well as the LEFT small saphenous vein. Isolated varicosity noted within the medial aspect of the left thigh, Incompetent
fast food crew member vein within the medial left ankle, Deep venous reflux within the LEFT popliteal vein.
AE HFpEF
A drop of about 9 kgs since hospital admission.
Patient's IV Lasix transition to p.o. 40 mg twice daily on 04/20.
Strict salt restriction, I's and O's.
Monitor daily weights.
Repeat echo on 04/18-Normal left ventricular chamber size. Mild concentric left ventricular
hypertrophy. Hyperdynamic left ventricular systolic function. Normal regional
wall motion. LV ejection fraction is 65-70%.
Mild to moderate mitral regurgitation.
Mild aortic regurgitation.
Mild to moderate tricuspid regurgitation. Estimated pulmonary artery pressure
of 50-55 mmHg.
Compared to the previous echo from Sep 2023, MR, AR and TR were mild at that
time.
Echo 10/15/23 normal LV size and systolic function EF 65-70%, mild LVH, mild AR, mild TR
Tachycardia with history of tachyarrhythmia
nurse monitoring�brief episodes of A-fib, PVCs, SVTs..
Cardiology on board.
Continue diltiazem 120 mg, twice daily. History of pruritus with metoprolol.
Anticoagulation with Eliquis
s/p recent lumbar fusion L2-L3 laminectomy 3 weeks ago [facility] Banuelos March 23, 2024
Hypothyroidism
Continue levothyroxine
Hypokalemia
Potassium 3.4, repleted today.
Hypomagnesemia
Supplement magnesium
anemic on admission
hemoglobin 9.2. Currently 8.7.
Continue to monitor and trend.
Iron studies for outpatient follow-up
RA
Arava is on hold OP s/p lumbar spinal fusion, continue to hold.
Hyperlipidemia
Continue rosuvastatin
Peripheral neuropathy
Continue gabapentin
PT/OT evaluation
DVT prophylaxis-Eliquis
Status full code
Anticipated Discharge: Within 24 hours
Subjective/Interval History
-
Date of Service: April 21, 2024
Overnight patient had fever with chills and sweating.
Fever resolved after taking acetaminophen.
Patient's leg pain improved. Currently she reports only having discomfort in her left leg but no pain.
Objective Data
-
Labs:
Laboratory Results
04/21/24 04/21/24 04/21/24
06:56 06:56 06:56
WBC 7.5
Hgb 9.1 L
Hct 28.7 L
Plt Count 420 H
Sodium 131 L Cancelled
Potassium 3.4 L Cancelled
Chloride 88 L
Carbon Dioxide
BUN
Creatinine
Glucose
Calcium
Total Bilirubin
AST
ALT
Alkaline Phosphatase
04/21/24 04/21/24 04/21/24
06:56 06:56 06:56
WBC
Hgb
Hct
Plt Count
Sodium
Potassium
Chloride Cancelled
Carbon Dioxide 33 H Cancelled
BUN 26 H Cancelled
Creatinine 0.8
Glucose
Calcium
Total Bilirubin
AST
ALT
Alkaline Phosphatase
04/21/24 04/21/24 04/21/24
06:56 06:56 06:56
WBC
Hgb
Hct
Plt Count
Sodium
Potassium
Chloride
Carbon Dioxide
BUN
Creatinine Cancelled
Glucose 108 H Cancelled
Calcium 9.1 Cancelled
Total Bilirubin 0.4
AST 26
ALT 13
Alkaline Phosphatase 74
Vital Signs:
Vital Signs
Temp Pulse Resp BP Pulse Ox
98.1 F 81 16 126/89 98
04/21/24 07:46 04/21/24 07:46 04/21/24 07:46 04/21/24 07:46 04/21/24 07:46
I&O
04/20/24 04/21/24 04/22/24
06:59 06:59 06:59
Intake Total 1200 / 1200 1740 / 1740
Balance 1200 / 1200 1740 / 1740
Review of Systems
-
History Source: Patient
Constitutional: Reports Fever (Yesterday night)
Respiratory: Reports No Symptoms
Cardiac: Reports No Symptoms
Abdomen/GI: Reports Constipated
Genitourinary: Reports No Symptoms
Musculoskeletal: Reports Other (Left calf swelling and pain improved. Back pain.)
Neuro: Reports No Symptoms
Endocrine: Reports No Symptoms
Hematologic / Lymphatic: Reports No Symptoms
Physical Exam
-
General: Comfortable (On room air.)
HEENT: Normocephalic, Atraumatic and Moist Mucous Membranes
Respiratory: Clear to Auscultation (No wheezes, rales, or rhonchi.)
Cardiac: S1/S2, Irregular Rhythm and Other (No S3, S4, murmurs, rubs, gallops)
GI: Soft, Nontender, Nondistended, Normal Bowel Sounds and No Hepatosplenomegaly
Musculoskeletal: No Clubbing, No Cyanosis, Edema, Left Lower Extrem (Erythema and local rise of temperature significantly improved, 2+ pitting edema resolving. Dorsalis pedis pulse appreciated.) and Other (Feeble dorsalis pedis pulse in the right
lower extremity edema.)
Neuro: AO x 3 and No Motor Deficits
Psych: Calm
[2024-04-21 10:42] LABS: Magnesium 1.5 mg/dl (1.6-2.3)
[2024-04-21] MEDS: KCL 40 MEQ PO (12:38)
[2024-04-21] MEDS: ROXICODONE 10 MG PO ×2 (13:50→17:57)
--- NOTE | 2024-04-21 14:20 | W.PN.CARDCBS ---
Addendum entered and electronically signed by Kishor Arshad DO 04/21/24 17:45:
I saw and examined the patient.
The Water Reuse Program Manager's note was reviewed and I agree with the note.
Comment:
Plan:
Continue IV Lasix today and transition to p.o. Lasix in the a.m. She was taking 80 mg daily on admission.
Continue antibiotics for cellulitis
Continue Cardizem for atrial tachycardia and PACs which have improved.
Eliquis for now however we will repeat monitor as an outpatient. Patient unlikely to require long-term Eliquis.
Her left lower extremity is much improved after significant calf swelling from leg wraps.
Outpatient follow-up to be arranged.
Original Note:
Today's Communication / Plan
-
IV lasix this afternoon. likely transition to po in AM, was on 80mg daily prior to admission
abx for cellulitis
continue cardizem, eliquis
Impression / Plan
-
.
Primary early morning babysitter: Dr. Arshad
Impression:
Frequent atrial tachycardia and PACs
Presented w/ increased lower extremity edema, weight gain
Increased lower extremity edema with erythema with history of lymphedema and known venous stasis, left greater than right
Anemia
s/p recent lumbar fusion L2-L3 laminectomy [facility] March 23, 2024
Multiple orthopedic surgeries, the patient says over 30
Lymphedema
Chronic venous insufficiency, she has seen vascular and was getting lymphatic pumps
HTN
Hyperlipidemia
Rheumatoid arthritis
Mild mitral regurgitation and tricuspid regurgitation and aortic regurgitation
Chronic PACs with recent monitor
History SVT with hx AVNRT ablation Sep 2018 Dr Brown
Hypothyroidism
right foot and ankle surgery November 2019
Left shoulder surgery April 2023
Hip dislocation May 2022, to [place] [facility]
Echo 04/18/2024: EF 65 to 70%. Mild concentric LVH. Hyperdynamic LV with normal regional wall motion. Mild to moderate MR. Mild AI. Mild to moderate TR with PAP 50-55 mmHg.
Echo September 2023: EF 65 to 70% with mild LVH, mild MR, mild AR, mild TR, PASP 30 to 35 mmHg no change from 2020
Lexiscan MIBI March 2021 showed normal myocardial perfusion
Recent 3-day monitor March 2024: Normal sinus rhythm throughout the study with average heart rate 96 bpm, frequent atrial tachycardia longest 19 beats, frequent PACs over 20,000/day, rare PVCs
Plan:
-weight trending down if accurate. will give 40mg IV lasix this afternoon and transition to po in AM. dry weight ~165 pounds, 167 pounds today if accurate. prior to admission was on 80mg po daily.
-replete K
-of note, she has limited capability to raise her legs due to chronic hip dislocation and significant orthopedic issues.
-continue cardizem cd 120mg BID. she has history of pruritus with metoprolol.
-continue eliquis 5mg BID. patient anemic but hgb stable throughout admission, 9.1 on 04/21. iron studies noted
-Complained of worsening left lower extremity swelling and pain. Patient reported CAMMIE wrap slipped down and her left calf remains painful and swollen. Her left foot is painful as well. Lower extremity venous Doppler was negative for DVT 04/16/24.
with fever overnight, continue abx per primary service
-PT/OT
-will arrange OP cardiac follow up. plan for home with VN upon DC
History of Present Illness 04/16/24:
Ana is a patient known to me last in the office January 2024 with a history of SVT, chronic lymphedema and venous insufficiency, frequent PVCs, hyperlipidemia, rheumatoid arthritis who has had multiple orthopedic surgeries. She stated that she
has had over 30 surgeries. She was deemed acceptable cardiac risk during the January visit for lumbar fusion surgery which she underwent at [facility] [address] including L2-L3 laminectomy March 23, 2024.
Over the last 2 weeks she has noted increased lower extremity edema with redness over the last week of her lower extremities. Lasix 40 mg daily did not improve. She took additional Lasix on her own including 80 mg daily without improvement. She
denies chest pain or shortness of breath. She saw her PCP today in the office and was recommended ER evaluation. She is being admitted for lower extremity edema/volume overload with known lymphedema and venous insufficiency. She received Lasix 80
mg IV in the emergency room.
Progress Note - Finish Saw Operator
Subjective
Date of Service: April 21, 2024
with L foot pain/swelling
Objective
Labs:
04/21/24 06:56
04/21/24 06:56
Labs
Hgb 9.1 g/dL (12.0-16.0) L 04/21/24 06:56
Hct 28.7 % (37.0-47.0) L 04/21/24 06:56
Plt Count 420 10^3/uL (130-400) H 04/21/24 06:56
Sodium 131 mmol/L (135-145) L 04/21/24 06:56
Sodium Cancelled 04/21/24 06:56
Potassium 3.4 mmol/L (3.5-5.1) L 04/21/24 06:56
Potassium Cancelled 04/21/24 06:56
BUN 26 mg/dl (7-17) H 04/21/24 06:56
BUN Cancelled 04/21/24 06:56
Creatinine 0.8 mg/dL (0.6-1.0) 04/21/24 06:56
Creatinine Cancelled 04/21/24 06:56
Glucose 108 mg/dl (70-99) H 04/21/24 06:56
Glucose Cancelled 04/21/24 06:56
Vital Signs and I&O:
Vital Signs
Temp Pulse Resp BP Pulse Ox
98.1 F 81 16 126/89 98
04/21/24 07:46 04/21/24 07:46 04/21/24 07:46 04/21/24 07:46 04/21/24 07:46
Vital Signs
Temp Pulse Resp BP Pulse Ox
98.1 F 81 16 126/89 98
04/21/24 07:46 04/21/24 07:46 04/21/24 07:46 04/21/24 07:46 04/21/24 07:46
Intake & Output
04/19/24 04/20/24 04/21/24 04/22/24
07:59 07:59 07:59 07:59
Intake Total 840 / 840 1200 / 1200 1740 / 1740
Balance 840 / 840 1200 / 1200 1740 / 1740
[2024-04-21 15:20] VITALS: BP 117/46
[2024-04-21] MEDS: LASIX 40 MG IV (16:04)
[2024-04-21] MEDS: CRESTOR 5 MG PO (17:58)
[2024-04-21 19:00] VITALS: BP 116/67
[2024-04-21] MEDS: MAGNESIUM OXIDE 500 MG PO (20:03)
[2024-04-21 23:41] VITALS: BP 117/63
[2024-04-22] MEDS: ANCEF 10 IV ×2 (00:13→08:01)
[2024-04-22] MEDS: ROXICODONE 10 MG PO (00:41)
[2024-04-22 03:00] VITALS: BP 108/56
[2024-04-22] MEDS: SYNTHROID 100 MCG PO (05:11)
[2024-04-22 06:00] VITALS: BMI 27.0
[2024-04-22 06:41] LABS: % Basophils 0.6 % (0-2); % Eosinophils 9.8 % (0-6); % Immature Granulocytes 0.8 % (0-0.5); % Lymphocytes 29.4 % (20.5-51.1); % Monocytes 18.3 % (1.7-9.3); % Neutrophils 41.1 % (42.2-75.2); Absolute Eosinophils 0.6 10^3/uL (0-0.7); Absolute Immature Granulocytes 0.1 10^3/uL (0-0.05); Absolute Lymphocytes 1.9 10^3/uL (1.2-3.4); Absolute Monocytes 1.2 10^3/uL (0.1-0.6); Absolute Neutrophils 2.7 10^3/uL (1.4-6.5); Hematocrit 28.8 % (37.0-47.0); Hemoglobin 9.3 g/dL (12.0-16.0); Mean Corp Hgb Conc. 32.3 g/dL (33.0-37.0); Mean Corpuscular Hgb 29.5 pg (27.0-31.0); Mean Corpuscular Volume 91.4 fL (81.0-99.0); Mean Platelet Volume 9.5 fL (7.4-10.4); Nucleated Red Blood Cells % 0 %; Platelet Count 472 10^3/uL (130-400); Red Blood Cell Count 3.15 10^6/uL (4.20-5.40); Red Cell Dist. Width 14.1 % (11.5-14.5); White Blood Cell Count 6.6 10^3/uL (4.8-10.8)
[2024-04-22 07:06] LABS: ALT (SGPT) 10 U/L (0-35); AST (SGOT) 28 U/L (14-36); Albumin 3.7 g/dl (3.5-5.0); Alkaline Phosphatase 79 U/L (38-126); Blood Urea Nitrogen 35 mg/dl (7-17); Carbon Dioxide 34 mmol/L (22-30); Chloride 88 mmol/L (98-107); Estimated Creatinine Clearance 46 ml/min; Glucose 106 mg/dl (70-99); Magnesium 1.9 mg/dl (1.6-2.3); Potassium 3.3 mmol/L (3.5-5.1); Sodium 133 mmol/L (135-145); Total Bilirubin 0.3 mg/dl (0.2-1.3); eGFR 59.12
--- NOTE | 2024-04-22 07:38 | W.PN.HOSP.TC ---
Addendum entered and electronically signed by Tono Saavedra MD 04/22/24 23:10:
Attending Addendum-
I saw and evaluated the patient. I reviewed the resident�s note and agree with findings and plan as documented in the resident�s note. pain and redness improved in LLE. Was afebrile in last 24 hours. Full 12 point ROS reviewed and negative except
as documented Exam: Vitals reviewed in chart GEN-NAD Heart irreg lungs clear abd soft LE trace pitting edema LLE TTP not red not warm +2 DP LLE Back- incision CDI Plan:
# LLE Cellulitis
- resolving
- transition to PO abx on DC
# B/L venous insufficiency with associated worsening peripheral edema & volume overload bilateral LE , following recent lumbar spinal fusion at [place] 3 weeks prior
-history of US venous insufficiency
-transition to PO Lasix
-Consider Vascular consultation as OP Dr. Gonsalez
- dropping weight daily
- monitor strict i and os and daily weights
- check BERTHA r/o arterial insufficiency
# AE HFpEF
- resolved
- IV lasix BID transition to PO 80mg PO BID
- strict I and Os
- daily weights
- repeat echo 04/18- Normal left ventricular chamber size. Mild concentric left ventricular
hypertrophy. Hyperdynamic left ventricular systolic function. Normal regional
wall motion. LV ejection fraction is 65-70%.
Mild to moderate mitral regurgitation.
Mild aortic regurgitation.
Mild to moderate tricuspid regurgitation. Estimated pulmonary artery pressure
of 50-55 mmHg.
Compared to the previous echo from Sep 2023, MR, AR and TR were mild at that
time.
#Tachycardia with history of tachyarrhythmia- p afib vs frequent PAC's, Ambulance Dispatcher is Dr. Arshad
-monitor on tele
-Cardiology input appreciated
-cont new Cardizem
-cont eliquis
# Hypothyroidism
-cont levothyroxine
# Hypokalemia
- resolved
-replete aggressively as on lasix
-repeat labs in am
#RA
- Stable. Arava is on hold OP s/p lumber spinal fusion, continue to hold.
# HLD
- cont crestor
# Chronic Back Pain/narcotic use
- cont pain meds
- PT OT
# Left Hum fx-
- ortho c/s if needed
- no c/o acute symptoms nor trauma related to these findings, no new onset of symptoms and she has an OP Ortho follow-up in June with her Surgeon who performed the shoulder surgery repair (which as in June). She will contact her OP ortho unless
any further issues while inpatient.
# Peripheral Neuropathy-
- cont gabapentin
DVT Prophylaxis: Lovenox
Code Status: Full
Dispo-DC home with HC
Time spent coordinating care, review of plan of care with resident, DC planning, transition of care, review of records, med rec, consults, notes, labs, rads, d/w nursing and cardiology � 35 mins
Original Note:
Today's Communication/Plan
-
Oral diltiazem
Oral Eliquis
Oral Lasix dose bump to 80 mg
Oral potassium supplementation
Plan for discharge.
Assessment / Plan
Assessment / Plan
Assessment-
74-year-old female with PMHx of rheumatoid arthritis on Arava (currently of immunosuppressant due to recent surgery), hypothyroidism, hypertension, multiple orthopedic surgeries presents to the ER due to increased left leg swelling and weight gain
times past 2 weeks - 20 pounds.
Impression-
Left lower extremity cellulitis.
Febrile yesterday. No temperature rise overnight.
Started on IV Ancef X day 2.
Pending blood and urine cultures.
Clinical improvement noted with much improvement in erythema, edema, tenderness, local rise of temperature in the LLE.
oral transition of antibiotics today.
X-ray ankle, x-ray foot on left side-only significant for calcifications in the venous system and diffuse osteoporosis changes.
B/l venous insufficiency with associated worsening peripheral edema
Peripheral vascular ultrasound-no evidence of DVT
ABP Ultrasound - RIGHT LOWER EXTREMITY: BERTHA within normal limits at 1.08. TBI within normal limits at 0.92. Arterial duplex examination reveals multiphasic waveforms from the common femoral artery through the popliteal artery with no focal
velocity elevations to suggest significant stenosis.
LEFT LOWER EXTREMITY: BERTHA within normal limits at 1.08. TBI mildly reduced at 0.64 (prior 0.81). Arterial duplex examination reveals multiphasic waveforms from the common femoral artery to the mid superficial femoral artery. There is a transition
to monophasic waveforms in the distal superficial femoral artery and popliteal artery suggesting the presence of arterial disease at this location. There are no focal velocity elevations identified to suggest significant stenosis.
antalgic gait
US venous insufficiency 09/16/22 with findings as follows on US: -Insufficiency of BOTH below knee greater saphenous veins as well as the LEFT small saphenous vein. Isolated varicosity noted within the medial aspect of the left thigh, Incompetent
patent law specialist vein within the medial left ankle, Deep venous reflux within the LEFT popliteal vein.
AE HFpEF
A drop of about 9 kgs since hospital admission.
Patient's IV Lasix transition to p.o. 40 mg twice daily on 04/20.
Strict salt restriction, I's and O's.
Monitor daily weights.
Repeat echo on 04/18-Normal left ventricular chamber size. Mild concentric left ventricular
hypertrophy. Hyperdynamic left ventricular systolic function. Normal regional
wall motion. LV ejection fraction is 65-70%.
Mild to moderate mitral regurgitation.
Mild aortic regurgitation.
Mild to moderate tricuspid regurgitation. Estimated pulmonary artery pressure
of 50-55 mmHg.
Compared to the previous echo from Sep 2023, MR, AR and TR were mild at that
time.
Echo 10/15/23 normal LV size and systolic function EF 65-70%, mild LVH, mild AR, mild TR
Tachycardia with history of tachyarrhythmia
quality assurance monitor body�brief episodes of A-fib, PVCs, SVTs..
Cardiology on board.
Continue diltiazem 120 mg, twice daily. History of pruritus with metoprolol.
Anticoagulation with Eliquis
s/p recent lumbar fusion L2-L3 laminectomy 3 weeks ago [facility] March 23, 2024
Hypothyroidism
Continue levothyroxine
Hyponatremia-
Secondary to diuresis, hypovolemic hyponatremia.
Hypokalemia
Potassium 3.3 repleted today.
Hypomagnesemia
Resolved today.
anemic on admission
hemoglobin 9.2. Currently 9.3.
Continue to monitor and trend.
Iron studies for outpatient follow-up.
RA
Arava is on hold OP s/p lumbar spinal fusion, continue to hold.
Hyperlipidemia
Continue rosuvastatin
Peripheral neuropathy
Continue gabapentin
PT/OT evaluation
DVT prophylaxis-Eliquis
Status full code
Anticipated Discharge: Today
Subjective/Interval History
-
Date of Service: April 22, 2024
Patient has back pain and swelling at the surgical incision site on the back.
Her pain in her left leg is about 4 out of 10.
Denies fevers, chills.
Objective Data
-
Labs:
Laboratory Results
04/22/24
06:21
WBC 6.6
Hgb 9.3 L
Hct 28.8 L
Plt Count 472 H
Sodium 133 L
Potassium 3.3 L
Chloride 88 L
Carbon Dioxide 34 H
BUN 35 H
Creatinine 1.0
Glucose 106 H
Calcium 10.0
Total Bilirubin 0.3
AST 28
ALT 10
Alkaline Phosphatase 79
Vital Signs:
Vital Signs
Temp Pulse Resp BP Pulse Ox
98.4 F 68 18 108/56 94
04/22/24 03:00 04/22/24 03:00 04/22/24 03:00 04/22/24 03:00 04/22/24 03:00
I&O
04/21/24 04/22/24 04/23/24
06:59 06:59 06:59
Intake Total 1740 / 1740 1560 / 1560
Balance 1740 / 1740 1560 / 1560
Review of Systems
-
History Source: Patient
Respiratory: Reports No Symptoms
Cardiac: Reports No Symptoms
Breast: Reports No Symptoms
Musculoskeletal: Reports Joint Pain and Other (Swelling in her left leg cough on the posterior side)
Skin: Reports No Symptoms
Endocrine: Reports No Symptoms
Hematologic / Lymphatic: Reports No Symptoms
Allergy / Immunology: Reports No Symptoms
Physical Exam
-
General: Comfortable
HEENT: Normocephalic, Atraumatic, Moist Mucous Membranes and PERRLA
Respiratory: Clear to Auscultation
Cardiac: S1/S2, Irregular Rhythm and Other (No murmurs, rubs, gallops)
GI: Soft, Nontender, Nondistended and Normal Bowel Sounds
Genito-urinary: No Costovertebral Tender
Musculoskeletal: No Clubbing, No Cyanosis and Other (Edema left lower extremity> right lower extremity. Erythema, tenderness, local rise of temperature in the left lower extremity resolving.)
Skin: Other (Venous stasis dermatitisLeft lower extremity. 4 x 5 cm swelling in the right lower dorsum lateral to the spine without erythema noted, nodular to palpation, nonfluctuant, and no local rise of temperature.)
Neuro: AO x 3 and No Motor Deficits
Psych: Calm
[2024-04-22 07:49] VITALS: BP 95/45
[2024-04-22] MEDS: KCL 40 MEQ PO (08:01)
[2024-04-22] MEDS: ELIQUIS 5 MG PO (08:05)
[2024-04-22] MEDS: NEURONTIN 300 MG PO (08:05)
[2024-04-22] MEDS: CARDIZEM CD 120 MG PO (08:05)
--- NOTE | 2024-04-22 08:40 | PN.CDI ---
CDI
- -
CDI:
Physician Documentation Request
Admit Date: 04/16/24 14:03
Dear Doctor ,
Please review the following and provide your response in the progress notes.
Clinical Indicators:
Pt admitted with fluid overload found to have Acute HFpEF treated with IV Diuresis .
Sodium levels are as below
04/20/24 04/21/24 04/22/24
07:31 06:56 06:21
Sodium 134 L 131 L 133 L
Based on the above, could you clarify in the progress notes, the appropriate diagnosis, if significant, that supports the above abnormalities and additional evaluation, monitoring and/or treatment rendered:
Hyponatremia
Abnormal lab value only
Other
Use of terms such as suspected, likely, concern for, or probable (associated with a specific diagnosis that is being evaluated, monitored, or treated as if it exists) are acceptable and can be coded in the inpatient setting, when documented at the
time of discharge.
Thank you,
Erin Bravo RN
CDI Specialist
[place] [facility]
Please use your independent medical judgment in providing your response.
[2024-04-22 11:26] VITALS: BP 111/54
[2024-04-22 11:35] VITALS: BP 111/54; PULSE 74; O2SAT 97
--- NOTE | 2024-04-22 14:01 | W.PN.CARDCBS ---
Addendum entered and electronically signed by Bentley Corona MD 04/22/24 16:28:
Patient anxious to go home. Spine surgery had been performed about 1 month ago.
She states she still has some lower extremity edema
PMH/PSH/SH/FH: Reviewed
Allergies: Metoprolol
Outpatient medications reviewed
Current medications: Gabapentin 300 3 times daily, levothyroxine 100 mcg a day, rosuvastatin 5 mg at bedtime, apixaban 5 mg twice daily, diltiazem CD1 120 mg twice daily, Ancef, furosemide 80 mg a.m. and 40 mg.
Furosemide had been 80 mg a day as outpatient, diltiazem is unchanged
ROS: Negative except as above
118/74, pulse 78, 16, weight 75.8 kg, had been 84.4 kg, unremarkable, lungs are clear, back brace in place, regular rate and rhythm with soft systolic murmur at apex JVD okay, abdomen benign, edema of lower extremities left greater than right, neuro
nonfocal
Hemoglobin was 9.3 sodium is 133, potassium is 3.3, BUN and creatinine are 35 and 1.0
Impression: See below
Plan:
She is still mildly volume overloaded but anxious to leave. Volume overload is predominantly right-sided, though weight is down since admission.
Furosemide at discharge will be 80 in a.m. and 40 in p.m. Previously was 80 mg a day.
As outpatient we can send her spironolactone and SGLT2 inhibitor.
Atrial rhythm is adequately controlled. Currently on Eliquis, though no true atrial fibrillation documented, can make as outpatient regarding anticoagulation.
Now on higher dose diltiazem. Gabapentin can also cause edema, can reassess as outpatient
She has follow-up in place okay for discharge.
Possible distal left SFA stenosis
Original Note:
Today's Communication / Plan
-
80mg po lasix QAM and 40mg QPM
40 mEq KCl daily
BMP in 1 week
abx per primary service
OP cardiac follow up arranged
Impression / Plan
-
.
Primary signalling and communications engineer: Dr. Arshad
Impression:
Frequent atrial tachycardia and PACs
Acute on chronic HFpEF
Increased lower extremity edema with erythema with history of lymphedema and known venous stasis, left greater than right
Anemia
s/p recent lumbar fusion L2-L3 laminectomy [facility] March 23, 2024
Multiple orthopedic surgeries, the patient says over 30
Lymphedema
Chronic venous insufficiency, she has seen vascular and was getting lymphatic pumps
HTN
Hyperlipidemia
Rheumatoid arthritis
Mild mitral regurgitation and tricuspid regurgitation and aortic regurgitation
Chronic PACs with recent monitor
History SVT with hx AVNRT ablation Sep 2018 Dr Brown
Hypothyroidism
right foot and ankle surgery November 2019
Left shoulder surgery April 2023
Hip dislocation May 2022, to OR [place]
Echo 04/18/2024: EF 65 to 70%. Mild concentric LVH. Hyperdynamic LV with normal regional wall motion. Mild to moderate MR. Mild AI. Mild to moderate TR with PAP 50-55 mmHg.
Echo September 2023: EF 65 to 70% with mild LVH, mild MR, mild AR, mild TR, PASP 30 to 35 mmHg no change from 2020
Lexiscan MIBI March 2021 showed normal myocardial perfusion
Recent 3-day monitor March 2024: Normal sinus rhythm throughout the study with average heart rate 96 bpm, frequent atrial tachycardia longest 19 beats, frequent PACs over 20,000/day, rare PVCs
Plan:
-She presented due to lower extremity edema, particularly significant to left lower extremity. She reports improvement in ankle edema, however remains with significant left calf swelling/enlargement
-LE US negative for DVT. ABIs within normal limits. remains on abx for possible cellulitis per primary service
-Weight down from admission. prior to admission was taking po lasix 80mg daily without significant response. will plan for po lasix 80mg QAM and 40mg QPM upon DC
-replete K. she had been taking 20 mEq daily prior to admission, would DC on 40 mEq KCl daily.
-BMP in 1 week
-of note, she has limited capability to raise her legs due to chronic hip dislocation and significant orthopedic issues, so has not been using compression stockings
-continue cardizem cd 120mg BID. she has history of pruritus with metoprolol.
-continue eliquis 5mg BID. patient anemic but hgb stable throughout admission, 9.3 on 04/22. iron studies noted
-PT/OT
-OP cardiac follow up arranged. plan for home with VN upon DC
History of Present Illness 04/16/24:
Ana is a patient known to me last in the office January 2024 with a history of SVT, chronic lymphedema and venous insufficiency, frequent PVCs, hyperlipidemia, rheumatoid arthritis who has had multiple orthopedic surgeries. She stated that she
has had over 30 surgeries. She was deemed acceptable cardiac risk during the January visit for lumbar fusion surgery which she underwent at [facility] including L2-L3 laminectomy March 23, 2024.
Over the last 2 weeks she has noted increased lower extremity edema with redness over the last week of her lower extremities. Lasix 40 mg daily did not improve. She took additional Lasix on her own including 80 mg daily without improvement. She
denies chest pain or shortness of breath. She saw her PCP today in the office and was recommended ER evaluation. She is being admitted for lower extremity edema/volume overload with known lymphedema and venous insufficiency. She received Lasix 80
mg IV in the emergency room.
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
Subjective
Date of Service: April 22, 2024
denies SOB. denies significant improvement in L calf swelling. reports improved B/L ankle swelling from admission
Objective
Labs:
04/22/24 06:21
04/22/24 06:21
Labs
Hgb 9.3 g/dL (12.0-16.0) L 04/22/24 06:21
Hct 28.8 % (37.0-47.0) L 04/22/24 06:21
Plt Count 472 10^3/uL (130-400) H 04/22/24 06:21
Sodium 133 mmol/L (135-145) L 04/22/24 06:21
Potassium 3.3 mmol/L (3.5-5.1) L 04/22/24 06:21
BUN 35 mg/dl (7-17) H 04/22/24 06:21
Creatinine 1.0 mg/dL (0.6-1.0) 04/22/24 06:21
Glucose 106 mg/dl (70-99) H 04/22/24 06:21
Vital Signs and I&O:
Vital Signs
Temp Pulse Resp BP Pulse Ox
97.5 F 74 16 111/54 97
04/22/24 11:26 04/22/24 11:26 04/22/24 11:26 04/22/24 11:26 04/22/24 11:26
Vital Signs
Temp Pulse Resp BP Pulse Ox
97.5 F 74 16 111/54 97
04/22/24 11:26 04/22/24 11:26 04/22/24 11:26 04/22/24 11:26 04/22/24 11:26
Intake & Output
04/20/24 04/21/24 04/22/24 04/23/24
07:59 07:59 07:59 07:59
Intake Total 1200 / 1200 1740 / 1740 1560 / 1560
Balance 1200 / 1200 1740 / 1740 1560 / 1560
Physical Exam
Physical Exam
GEN: No distress, awake, alert, oriented x3
HEENT: supple, anicteric, mmm, eomi
LUNGS: CTA B/L, no wheezes/rales
CV: Irreg, S1/S2, 1/6 murmur
ABD: soft, BS+, NT/ND
EXT: No cyanosis, clubbing. Significant enlargement of LLE. 2+ B/L ankle/foot edema
NEURO: Gross non-focal
SKIN: Warm, pink, dry. No rash. Chronic discoloration B/L LE
[2024-04-22 14:18] VITALS: BP 118/74
[2024-04-22] MEDS: LASIX 80 MG PO (14:54)
[2024-04-22 15:31] VITALS: BP 109/71
--- NOTE | 2024-04-22 19:04 | W.DS.TRANS ---
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
-
Discharge Instructions:
Sleep Apnea Risk Low
Discharge Diagnosis/Procedures Exacerbation of heart failure, cellulitis of
left lower leg, arrhythmia
Diet 2 Gram Sodium,Low Cholesterol
Additional Diets Limit fluid intake to 1800 mL a day.
Activity As tolerated
Driving Restrictions As prior to admission
Bathing Restrictions None
Blood Work BMP in 1 week
Other Services VN
Specialty Instructions Weigh Daily
Instructions: *DCA Heart Failure Instructions
Stand-Alone Forms:
Changes to Home Medications: Yes
Discharge Medications:
DC Medications w/original date entered in [email or web address]
oxycodone 10 mg tablet 10 mg PO Q4HPRN PRN severe pain 06/13/14
acetaminophen 650 mg tablet,extended release 1,300 mg PO Q8H PRN mild pain 04/16/24
calcium carbonate (Calcium 600) 1,200 mg PO DAILY Supplement 04/16/24
cyclobenzaprine 10 mg tablet 10 mg PO Q8HPRN PRN muscle spasms 04/16/24
gabapentin 300 mg capsule 300 mg PO BID Pain 04/16/24
levothyroxine 100 mcg tablet (Synthroid) 100 mcg PO DAILY Thyroid 04/16/24
naratriptan 2.5 mg tablet 0 mg PO .COMPLEX Antimigraine Agent 04/16/24
potassium chloride 20 mEq tablet,extended release(part/cryst) 20 meq PO DAILY Supplement 04/16/24
pramipexole 0.375 mg tablet,extended release 24 hr 0.375 mg PO DAILY@1400 Anti-Parkinson Agent 04/16/24
rosuvastatin 5 mg tablet 5 mg PO HS High Cholesterol 04/16/24
therapeutic multivitamin 1 tab PO DAILY Supplement 04/16/24
apixaban 5 mg tablet (Eliquis) 5 mg PO BID 30 days #60 tabs 04/22/24
cephalexin 500 mg tablet 500 mg PO Q12H 7 days #14 tabs 04/22/24
diltiazem HCl 120 mg capsule,extended release 24 hr 120 mg PO BID 30 days #60 caps 04/22/24
furosemide 80 mg tablet 80 mg PO DAILY 30 days #30 tabs 04/22/24
Home Medication Changes
furosemide 80 mg tablet 80 mg PO DAILY 30 days #30 tabs 04/22/24
potassium chloride 20 mEq tablet,extended release(part/cryst) 20 meq PO DAILY Supplement 04/16/24
diltiazem HCl 120 mg capsule,extended release 24 hr 120 mg PO BID 30 days #60 caps 04/22/24
cephalexin 500 mg tablet 500 mg PO Q12H 7 days #14 tabs 04/22/24
Pending Results: No
--- NOTE | 2024-04-22 19:05 | W.DCSUMMARY ---
Addendum entered and electronically signed by Tono Saavedra MD 04/22/24 23:12:
Attending Addendum:
Read reviewed and agree. See same day progress note for additional details.
Rubens Saavedra MD
Original Note:
Documented by User: Cassandra Chavez MD, Resident 04/22/24 19:28
Discharge Summary
Discharge Data
Date of Admission: 04/16/24
Date of Discharge: 04/22/24
-
Pending Results: No
Hospital Course
Assessment-
74-year-old female with PMHx of rheumatoid arthritis on Arava (currently of immunosuppressant due to recent surgery), hypothyroidism, hypertension, multiple orthopedic surgeries presents to the ER due to increased left leg swelling and weight gain
times past 2 weeks - 20 pounds.
Impression-
Acute exacerbation of HFpEF
Bilateral venous insufficiency with worsening peripheral edema
Left lower extremity cellulitis
Atrial fibrillation, frequent atrial tachycardia's and PACs
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
history of lymphedema and known venous stasis, left greater than right
Anemia
s/p recent lumbar fusion L2-L3 laminectomy [facility]uel[facility] March 23, 2024
Multiple orthopedic surgeries, the patient says over 30
Lymphedema
Chronic venous insufficiency, she has seen vascular and was getting lymphatic pumps
HTN
Hyperlipidemia
Rheumatoid arthritis
Mild mitral regurgitation,tricuspid regurgitation, aortic regurgitation
Chronic PACs with recent monitor
History SVT with hx AVNRT ablation Sep 2018 Dr Brown
Hypothyroidism
right foot and ankle surgery November 2019
Left shoulder surgery April 2023
Hip dislocation May 2022, to [facility]
Hospital course-
During her 6-day hospital course, patient was diuresed with IV Lasix-and patient lost about 8-9 kgs of weight, her IV Lasix was switched to oral Lasix 80 Mg-on 04/20. Patient was started on diltiazem and Eliquis for her A-fib, atrial tachycardia and
PACs. However patient continued to have pain and her left lower extremity-calf, patient may not need long-term Eliquis based on cardiology.
So peripheral vascular ultrasound was performed to rule out the deep vein thrombosis and there was no evidence for deep vein thrombosis further chest x-ray and an ankle x-ray was done to rule out any bony abnormalities and found to have no cortical
deformities or fractures. Patient has Pediotic electrolyte disturbances, hyponatremia, hypokalemia, hypomagnesemia during the 6-day hospital course that were corrected with oral potassium, oral magnesium supplementation. Mild hyponatremia was
secondary to diuresis. Did not warrant any correction.
However patient started developing fevers about midnight on 04/20-101.9, chills and rigors, patient was diagnosed with cellulitis and IV Ancef was started-patient was given 3 doses before discharge. Was switched to oral antibiotics upon discharge
and is advised to follow-up with primary care in 1 week.
For her other conditions prior to hospital admission, her home medication regimen was continued.
DVT prophylaxis was given with Eliquis.
Investigations-
Echo 04/18/2024: EF 65 to 70%. Mild concentric LVH. Hyperdynamic LV with normal regional wall motion. Mild to moderate MR. Mild AI. Mild to moderate TR with PAP 50-55 mmHg.
Peripheral vascular ultrasound-04/20, 04/16-no evidence for deep vein thrombosis.
X-ray ankle, x-ray foot-04/20-on left side-only significant for calcifications in the venous system and diffuse osteoporosis changes.
Vascular investigations -
Extremity arterial study-04/21/2024-
IMPRESSION:
RIGHT LOWER EXTREMITY: BERTHA within normal limits at 1.08. TBI within normal limits at 0.92. Arterial duplex examination reveals multiphasic waveforms from the common femoral artery through the popliteal artery with no focal velocity elevations to
suggest significant stenosis.
LEFT LOWER EXTREMITY: BERTHA within normal limits at 1.08. TBI mildly reduced at 0.64 (prior 0.81). Arterial duplex examination reveals multiphasic waveforms from the common femoral artery to the mid superficial femoral artery. There is a transition
to monophasic waveforms in the distal superficial femoral artery and popliteal artery suggesting the presence of arterial disease at this location. There are no focal velocity elevations identified to suggest significant stenosis.
Venous ultrasound-09/16/2022- -Insufficiency of BOTH below knee greater saphenous veins as well as the LEFT small saphenous vein. 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
left ankle, Deep venous reflux within the LEFT popliteal vein.
Other cardiology investigations-
Echo September 2023: EF 65 to 70% with mild LVH, mild MR, mild AR, mild TR, PASP 30 to 35 mmHg no change from 2020
Lexiscan MIBI March 2021 showed normal myocardial perfusion
Recent 3-day monitor March 2024: Normal sinus rhythm throughout the study with average heart rate 96 bpm, frequent atrial tachycardia longest 19 beats, frequent PACs over 20,000/day, rare PVCs
Discharge recommendations -
Follow-up with primary care in 1 week
Follow-up with vascular surgery in 1 month
Follow-up with cardiology in 1 week.
Continue diltiazem, change dose of oral Lasix, continue antibiotic course, added potassium supplementation on a daily basis to medication regimen.
Discharge Plan
-
Patient Disposition: Home (Routine Discharge)
Discharge Diagnosis/Procedures: Exacerbation of heart failure, cellulitis of left lower leg, arrhythmia
Condition: Good
Diet: Low Cholesterol and 2 Gram Sodium
Additional Diets: Limit fluid intake to 1800 mL a day.
Activity: As tolerated
Driving Restrictions: As prior to admission
Bathing Restrictions: None
Blood Work: BMP in 1 week
Other Services: VN
Specialty Instructions: Weigh Daily- Call MD for wt gain/loss 3 lbs overnight/5 lbs in 1 week
Instructions: *DCA Heart Failure Instructions
Referrals:
Mynor Méndez Jr., DO [Family Provider] -
Berhane Gonsalez III, MD [Active] -
Mago Matamoros PA-C [Specified Professional Personl] - 04/28/24 3:00 pm (You have a cardiology follow-up appointment at the [place] office with Dr. Arshad's physician bilingual administrative assistant, Mago. Please call with questions)
Prescriptions:
New
furosemide 80 mg Tablet
80 mg PO DAILY 30 Days Qty: 30 0RF
diltiazem HCl 120 mg Capsule,Extended Release 24hr
120 mg PO BID 30 Days Qty: 60 0RF
Eliquis 5 mg Tablet
5 mg PO BID 30 Days Qty: 60 0RF
cephalexin 500 mg tablet
500 mg PO Q12H 7 Days Qty: 14 0RF
Continued
oxycodone 10 MG tablet
10 mg PO Q4HPRN PRN (Reason: severe pain)
cyclobenzaprine 10 mg Tablet
10 mg PO Q8HPRN PRN (Reason: muscle spasms)
therapeutic multivitamin Tablet
1 tab PO DAILY
acetaminophen 650 mg Tablet Extended Release
1,300 mg PO Q8H PRN (Reason: mild pain)
levothyroxine [Synthroid] 100 mcg Tablet
100 mcg PO DAILY
calcium carbonate [Calcium 600] 600 mg calcium (1,500 mg) Tablet
1,200 mg PO DAILY
gabapentin 300 mg Capsule
300 mg PO BID
naratriptan 2.5 mg Tablet
0 mg PO .COMPLEX
Rx Instructions:
04/16/2024, take 1 tab at onset of headache; if no relief may repeat 1 tab after at least 4 hrs; max = 2 tabs/24 hrs.
rosuvastatin 5 mg Tablet
5 mg PO HS
pramipexole 0.375 mg tablet extended release 24 hr
0.375 mg PO DAILY@1400
potassium chloride 20 mEq Tablet,Er Particles/Crystals
20 meq PO DAILY
Patient Comments:
04/16/2024, prescribed to take one tablet dailyprn to be taken with Lasix but pt. has been taking daily along with Lasix recently.
Discontinued
furosemide 40 mg Tablet
80 mg PO DAILY
Patient Comments:
04/16/2024, per pt., she has been taking two tablets daily recently because of the swelling in her legs/feet. Prescribed one tablet dailyprn for water retention.
Discharge Orders:
Discharge Patient (As Directed); Ordered 04/22/24
Ordered By: Cassandra Chavez
Discharge Date and Time
Discharge Date/Time: 04/22/24 15:26
Print Language: BENINESE

Documented by User: Tono Saaevdra MD 04/22/24 23:08
Discharge Summary
Discharge Data
Date of Admission: 04/16/24
Date of Discharge: 04/22/24
Discharge Plan
-
Patient Disposition: Home (Routine Discharge)
Discharge Diagnosis/Procedures: Exacerbation of heart failure, cellulitis of left lower leg, arrhythmia
Condition: Good
Diet: Low Cholesterol and 2 Gram Sodium
Additional Diets: Limit fluid intake to 1800 mL a day.
Activity: As tolerated
Driving Restrictions: As prior to admission
Bathing Restrictions: None
Blood Work: BMP in 1 week
Other Services: VN
Specialty Instructions: Weigh Daily- Call MD for wt gain/loss 3 lbs overnight/5 lbs in 1 week
Instructions: *DCA Heart Failure Instructions
Referrals:
Mynor Méndez Jr., DO [Family Provider] -
Berhane Gonsalez III, MD [Active] -
Mago Matamoros PA-C [Specified Professional Personl] - 04/28/24 3:00 pm (You have a cardiology follow-up appointment at the [place] office with Dr. Arshad's physician bilingual administrative assistant, Mago. Please call with questions)
Prescriptions:
New
furosemide 80 mg Tablet
80 mg PO DAILY 30 Days Qty: 30 0RF
diltiazem HCl 120 mg Capsule,Extended Release 24hr
120 mg PO BID 30 Days Qty: 60 0RF
Eliquis 5 mg Tablet
5 mg PO BID 30 Days Qty: 60 0RF
cephalexin 500 mg tablet
500 mg PO Q12H 7 Days Qty: 14 0RF
Continued
oxycodone 10 MG tablet
10 mg PO Q4HPRN PRN (Reason: severe pain)
cyclobenzaprine 10 mg Tablet
10 mg PO Q8HPRN PRN (Reason: muscle spasms)
therapeutic multivitamin Tablet
1 tab PO DAILY
acetaminophen 650 mg Tablet Extended Release
1,300 mg PO Q8H PRN (Reason: mild pain)
levothyroxine [Synthroid] 100 mcg Tablet
100 mcg PO DAILY
calcium carbonate [Calcium 600] 600 mg calcium (1,500 mg) Tablet
1,200 mg PO DAILY
gabapentin 300 mg Capsule
300 mg PO BID
naratriptan 2.5 mg Tablet
0 mg PO .COMPLEX
Rx Instructions:
04/16/2024, take 1 tab at onset of headache; if no relief may repeat 1 tab after at least 4 hrs; max = 2 tabs/24 hrs.
rosuvastatin 5 mg Tablet
5 mg PO HS
pramipexole 0.375 mg tablet extended release 24 hr
0.375 mg PO DAILY@1400
potassium chloride 20 mEq Tablet,Er Particles/Crystals
20 meq PO DAILY
Patient Comments:
04/16/2024, prescribed to take one tablet dailyprn to be taken with Lasix but pt. has been taking daily along with Lasix recently.
Discontinued
furosemide 40 mg Tablet
80 mg PO DAILY
Patient Comments:
04/16/2024, per pt., she has been taking two tablets daily recently because of the swelling in her legs/feet. Prescribed one tablet dailyprn for water retention.
Discharge Orders:
Discharge Patient (As Directed); Ordered 04/22/24
Ordered By: Cassandra Chavez
Discharge Date and Time
Discharge Date/Time: 04/22/24 15:26
Print Language: BENINESE
== END 2024-04-22 15:26 | disposition home health service (06) | DRG 291 ==
LOC: 3 WEST ACU 14:03
PROVIDERS: Nurse Practitioner Family; Physician Assistant; Student in an Organized Health Care Education/Training Program; ADMITTING PHYSICIAN Internal Medicine; ATTENDING PHYSICIAN Family Medicine; CONSULT PHYSICIAN Nuclear Medicine Nuclear Cardiology; EMERGENCY PHYSICIAN Emergency Medicine; FAMILY PHYSICIAN Family Medicine
DX: I11.0 Hypertensive heart disease with heart failure (principal); I50.33 Acute on chronic diastolic (congestive) heart failure; L03.116 Cellulitis of left lower limb; I47.19 Other supraventricular tachycardia; E87.1 Hypo-osmolality and hyponatremia; I87.2 Venous insufficiency (chronic) (peripheral); E87.6 Hypokalemia; I48.0 Paroxysmal atrial fibrillation; I89.0 Lymphedema, not elsewhere classified
CPT/HCPCS: 71046; 73610; 73630; 80048; 80053; 80061; 81003; 81015; 82550; 82607; 82728; 82746; 83540; 83550; 83605; 83735; 83880; 84439; 84443; 84484; 85025; 85027; 87040; 87086; 93005; 93306; 93922; 93925; 93970; 96374; 96375; 97116; 97162; 97530; 99285

== ENCOUNTER → 2024-04-28 09:16 | Outpatient (REF) | payer OTHER, SELFPAY ==
[2024-04-28 10:30] LABS: % Basophils 0.6 % (0-2); % Eosinophils 5.3 % (0-6); % Lymphocytes 25.4 % (20.5-51.1); % Monocytes 14.5 % (1.7-9.3); % Neutrophils 53.2 % (42.2-75.2); Absolute Basophils 0.1 10^3/uL (0-0.2); Absolute Eosinophils 0.4 10^3/uL (0-0.7); Absolute Immature Granulocytes 0.1 10^3/uL (0-0.05); Absolute Monocytes 1.1 10^3/uL (0.1-0.6); Absolute Neutrophils 4.2 10^3/uL (1.4-6.5); Hematocrit 32.4 % (37.0-47.0); Hemoglobin 10.2 g/dL (12.0-16.0); Mean Corp Hgb Conc. 31.5 g/dL (33.0-37.0); Mean Corpuscular Hgb 29.7 pg (27.0-31.0); Mean Corpuscular Volume 94.5 fL (81.0-99.0); Mean Platelet Volume 9.2 fL (7.4-10.4); Nucleated Red Blood Cells % 0 %; Platelet Count 565 10^3/uL (130-400); Red Blood Cell Count 3.43 10^6/uL (4.20-5.40); Red Cell Dist. Width 14.1 % (11.5-14.5); White Blood Cell Count 7.9 10^3/uL (4.8-10.8)
[2024-04-28 12:00] LABS: Blood Urea Nitrogen 32 mg/dl (7-17); Calcium 10.5 mg/dl (8.4-10.2); Carbon Dioxide 34 mmol/L (22-30); Chloride 90 mmol/L (98-107); Glucose 93 mg/dl (70-99); Potassium 3.9 mmol/L (3.5-5.1); Sodium 136 mmol/L (135-145); eGFR > 60.00
== END ==
LOC: REG 09:16
PROVIDERS: ATTENDING PHYSICIAN Nurse Practitioner Adult Health
DX: I50.33 Acute on chronic diastolic (congestive) heart failure (principal); L03.116 Cellulitis of left lower limb; L03.115 Cellulitis of right lower limb; E87.8 Other disorders of electrolyte and fluid balance, not elsewhere classified; D50.9 Iron deficiency anemia, unspecified
CPT/HCPCS: 36415; 80048; 85025

== ENCOUNTER → 2024-08-22 09:44 | Outpatient (REF) | payer OTHER, SELFPAY ==
[2024-08-22 11:13] LABS: % Basophils 0.2 % (0-2); % Eosinophils 1.9 % (0-6); % Immature Granulocytes 0.5 % (0-0.5); % Lymphocytes 28.2 % (20.5-51.1); % Monocytes 13.9 % (1.7-9.3); % Neutrophils 55.3 % (42.2-75.2); Absolute Eosinophils 0.1 10^3/uL (0-0.7); Absolute Lymphocytes 1.8 10^3/uL (1.2-3.4); Absolute Monocytes 0.9 10^3/uL (0.1-0.6); Absolute Neutrophils 3.5 10^3/uL (1.4-6.5); Hematocrit 31.1 % (37.0-47.0); Mean Corp Hgb Conc. 32.2 g/dL (33.0-37.0); Mean Corpuscular Volume 90.1 fL (81.0-99.0); Mean Platelet Volume 9.7 fL (7.4-10.4); Nucleated Red Blood Cells % 0 %; Platelet Count 350 10^3/uL (130-400); Red Blood Cell Count 3.45 10^6/uL (4.20-5.40); Red Cell Dist. Width 15.7 % (11.5-14.5); White Blood Cell Count 6.3 10^3/uL (4.8-10.8)
[2024-08-22 11:23] LABS: Erythrocyte Sed Rate 23 mm/hour (0-20)
[2024-08-22 11:46] LABS: ALT (SGPT) 20 U/L (0-35); AST (SGOT) 30 U/L (14-36); Albumin 4.3 g/dl (3.5-5.0); Alkaline Phosphatase 86 U/L (38-126); Blood Urea Nitrogen 23 mg/dl (7-17); Carbon Dioxide 30 mmol/L (22-30); Chloride 96 mmol/L (98-107); Glucose 85 mg/dl (70-99); HDL Cholesterol 67 mg/dl; LDL Cholesterol, Calculated 94 mg/dl; Potassium 3.7 mmol/L (3.5-5.1); Sodium 138 mmol/L (135-145); Total Bilirubin 0.7 mg/dl (0.2-1.3); Total Cholesterol 183 mg/dl (50-199); Total Protein 6.3 g/dl (6.3-8.2); Triglyceride 112 mg/dl (10-149); Very Low Density Lipoprotein 22 mg/dl (0-30); eGFR > 60.00
[2024-08-22 12:08] LABS: C-Reactive Protein < 5.00 mg/L (0.0-10.00)
[2024-08-22 12:25] LABS: Vitamin D, 25-OH*** 55.8 ng/mL (30-80)
[2024-08-22 12:38] LABS: TSH Reflex To Free T4 0.47 uIU/ml (0.47-4.68)
[2024-08-22 13:00] LABS: Ferritin 72.9 ng/ml (11.1-264.0)
[2024-08-24 14:15] LABS: Intact PTH 101.3 pg/ml (13.6-85.8)
== END ==
LOC: REG 09:44
PROVIDERS: ATTENDING PHYSICIAN Internal Medicine Rheumatology; FAMILY PHYSICIAN Family Medicine; REFERRING PHYSICIAN Internal Medicine Endocrinology, Diabetes & Metabolism
DX: M05.79 Rheumatoid arthritis with rheumatoid factor of multiple sites without organ or systems involvement (principal); M81.0 Age-related osteoporosis without current pathological fracture; E78.2 Mixed hyperlipidemia; E03.9 Hypothyroidism, unspecified; D64.9 Anemia, unspecified; Z13.1 Encounter for screening for diabetes mellitus; E55.9 Vitamin D deficiency, unspecified
CPT/HCPCS: 36415; 80053; 80061; 82306; 82728; 83970; 84443; 85025; 85652; 86140

== ENCOUNTER → 2024-08-23 15:03 | Outpatient (REF) | payer OTHER, SELFPAY | LOC: REG 15:03 | PROVIDERS: ATTENDING PHYSICIAN Internal Medicine Rheumatology; FAMILY PHYSICIAN Family Medicine | DX: M05.79 Rheumatoid arthritis with rheumatoid factor of multiple sites without organ or systems involvement (principal); M81.0 Age-related osteoporosis without current pathological fracture | CPT/HCPCS: 73130; 73630 ==

== ENCOUNTER → 2024-08-24 09:39 | Outpatient (REF) | payer OTHER, SELFPAY ==
[2024-08-24 10:42] LABS: Calcium 9.9 mg/dl (8.4-10.2)
[2024-08-24 14:15] LABS: Intact PTH 121.2 pg/ml (13.6-85.8)
[2024-08-26 23:24] LABS: Quantiferon Mitogen minus NIL 9.91 IU/mL; Quantiferon NIL 0.09 IU/mL; Quantiferon Plus TB2 minus NIL 0.01 IU/mL (<=0.34); Quantiferon TB Gold Plus Negative (Negative)
== END ==
LOC: REG 09:39
PROVIDERS: ATTENDING PHYSICIAN Internal Medicine Rheumatology; FAMILY PHYSICIAN Family Medicine; REFERRING PHYSICIAN Internal Medicine Endocrinology, Diabetes & Metabolism
DX: M05.79 Rheumatoid arthritis with rheumatoid factor of multiple sites without organ or systems involvement (principal); M81.0 Age-related osteoporosis without current pathological fracture
CPT/HCPCS: 36415; 83970; 86480

== ENCOUNTER → 2024-09-02 07:55 | Outpatient (REF) | payer OTHER, SELFPAY | LOC: RAD 07:55 | PROVIDERS: ATTENDING PHYSICIAN Internal Medicine Endocrinology, Diabetes & Metabolism; FAMILY PHYSICIAN Family Medicine; REFERRING PHYSICIAN Internal Medicine Rheumatology | DX: M81.0 Age-related osteoporosis without current pathological fracture (principal) | CPT/HCPCS: 77080 ==

== ENCOUNTER → 2024-09-22 12:38 | Outpatient (REF) | payer OTHER, SELFPAY | LOC: RAD 12:38 | PROVIDERS: ATTENDING PHYSICIAN Internal Medicine Endocrinology, Diabetes & Metabolism; FAMILY PHYSICIAN Family Medicine; REFERRING PHYSICIAN Internal Medicine Rheumatology | DX: E34.9 Endocrine disorder, unspecified (principal); E04.2 Nontoxic multinodular goiter | CPT/HCPCS: 76536 ==

== ENCOUNTER → 2024-09-28 14:50 | Outpatient (REF) | payer OTHER, SELFPAY | LOC: DHVS 14:50 | PROVIDERS: ATTENDING PHYSICIAN Surgery Vascular Surgery; FAMILY PHYSICIAN Family Medicine; OTHER PHYSICIAN Internal Medicine Rheumatology | DX: I87.2 Venous insufficiency (chronic) (peripheral) (principal) | CPT/HCPCS: 93970 ==

== ENCOUNTER → 2024-10-08 08:13 | Outpatient (REF) | payer OTHER, SELFPAY | LOC: RAD 08:13 | PROVIDERS: ATTENDING PHYSICIAN Orthopaedic Surgery; FAMILY PHYSICIAN Family Medicine | DX: T84.028A Dislocation of other internal joint prosthesis, initial encounter (principal); Z96.612 Presence of left artificial shoulder joint | CPT/HCPCS: 73200 ==

== ENCOUNTER → 2024-11-11 07:31 | Outpatient (REF) | payer OTHER, SELFPAY | LOC: MRI 07:31 | PROVIDERS: ATTENDING PHYSICIAN Orthopaedic Surgery; FAMILY PHYSICIAN Nurse Practitioner Adult Health; OTHER PHYSICIAN Family Medicine; REFERRING PHYSICIAN Internal Medicine Rheumatology | DX: T84.84XA Pain due to internal orthopedic prosthetic devices, implants and grafts, initial encounter (principal); Z96.612 Presence of left artificial shoulder joint | CPT/HCPCS: 73218; 76882 ==

== ENCOUNTER → 2024-11-14 19:29 | Outpatient (REF) | payer OTHER, SELFPAY | LOC: WDC 19:29 | PROVIDERS: ATTENDING PHYSICIAN Family Medicine | DX: Z12.31 Encounter for screening mammogram for malignant neoplasm of breast (principal) | CPT/HCPCS: 77063; 77067 ==

== ENCOUNTER → 2024-11-20 07:58 | Outpatient (REF) | payer OTHER, SELFPAY | LOC: PAVMRI 07:58 | PROVIDERS: ATTENDING PHYSICIAN Family Medicine | DX: M67.452 Ganglion, left hip (principal) | CPT/HCPCS: 72197; A9575 ==

== ENCOUNTER 2024-11-28 08:56 | Day surgery (SDC) | payer OTHER, SELFPAY ==
[2024-11-28] VITALS (10 sets, daily range): BP systolic 19–167; BP diastolic 51–97; BMI 28.2
--- NOTE | 2024-11-28 08:58 | HP.FOC2 ---
Focused History & Physical
Chief Complaint
HPI:
Chief Complaint: Venous insufficiency of left lower extremity
HPI / Indication for Planned Procedure: This is a 74-year-old female with significant past medical history for rheumatoid arthritis, hypertension, hyperlipidemia, diverticulosis, headache, anemia, osteoporosis, Grewal's neuroma, SVT, and Raynaud's
who presents to [facility] for scheduled left lower extremity endovenous ablation of greater saphenous vein with Dr. Berhane Gonsalez III. Patient has a history of cellulitis of left lower extremity complicated by venous
insufficiency/varicosities. Patient denies recent trauma, illness, or hospitalization. She endorses that she is at baseline health. Patient has history of atrial tachycardia and PACs with irregular rhythm, obtained twelve-lead EKG which continues
to demonstrate atrial tachycardia and PACs, no change from baseline. Patient denies chest pain, shortness of breath, dyspnea exertion, ABD pain, nausea, vomiting, fever, and chills. Will proceed with scheduled procedure.
Relevant Past Medical History: Hypertension and Other (Rheumatoid arthritis, hyperlipidemia, diverticulosis, headache, anemia, osteoporosis, C. difficile, Raynaud's, SVT, from arterial disease)
Relevant Social History: Negative
Relevant Family History: Negative
Relevant Past Surgical History: Positive for (Left meniscal repair, left hip replacement, incisional hernia repair, total hysterectomy with partial small bowel resection, left shoulder surgery and replacement, right total shoulder replacement,
bilateral knee replacement, right hip revision, foot fusion and ankle surgery, spinal fusion)
Review of Systems
Review of Pertinent Systems: All Systems Negative
Medication
See Medication form for detailed medications: Yes
Medication List (including Herbals & OTC):
oxycodone 10 mg tablet 10 mg PO Q4HPRN PRN severe pain 06/13/14
acetaminophen 650 mg tablet,extended release 1,300 mg PO Q8H PRN mild pain 04/16/24
calcium carbonate (Calcium 600) 1,200 mg PO DAILY Supplement 04/16/24
levothyroxine 100 mcg tablet (Synthroid) 100 mcg PO DAILY Thyroid 04/16/24
naratriptan 2.5 mg tablet 2.5 mg PO PRN PRN migraine 04/16/24
potassium chloride 20 mEq tablet,extended release(part/cryst) 20 meq PO DAILY Supplement 04/16/24
pramipexole 0.375 mg tablet,extended release 24 hr 0.375 mg PO DAILY@1400 Anti-Parkinson Agent 04/16/24
rosuvastatin 5 mg tablet 5 mg PO HS High Cholesterol 04/16/24
therapeutic multivitamin 1 tab PO DAILY Supplement 04/16/24
denosumab 60 mg/mL subcutaneous syringe (Prolia) 60 mg SC [id number] 11/21/24
furosemide 80 mg tablet 80 mg PO DAILY 11/21/24
leflunomide 20 mg tablet (Arava) 20 mg PO DAILY 11/21/24
upadacitinib 15 mg tablet,extended release 24 hr (Rinvoq) 15 mg PO DAILY 11/21/24
cholecalciferol (vitamin D3) 50 mcg (2,000 unit) tablet (Vitamin D3) 100 mcg PO DAILY 11/28/24
Medications Reviewed: Yes
Allergies and Reactions
Patient has Allergies: Yes
Noted Allergies and Reactions:
Allergy/AdvReac Type Severity Reaction Status Date / Time
metoprolol Allergy Rash Verified 11/21/24 15:12
Pertinent Physical Exam
All Other Systems: Negative
Head/Neck: Normal
Lungs: Normal
Heart: Other (S1and S2, no murmur, irregular rhythm)
Extremities: Normal and Other (Bilateral radial +2 palpable pulse, right lower extremity +1 DP palpable, left lower extremity +2 DP palpable)
Neurological: Normal
Diagnosis / Assessment
Assessment: 74-year-old female with left lower extremity venous insufficiency and past medical history of cellulitis to left lower limb complicated by venous insufficiency/varicosities.
Plan / Procedure
Plan:
Will proceed with scheduled left lower extremity endovenous ablation of greater saphenous vein with Dr. Berhane Gonsalez III
Anesthesia/Sedation to be done by Anesthesia Provider: Yes
[2024-11-28] MEDS: NSS 500 IV (09:44)
[2024-11-28 09:45] LABS: Hematocrit 32.4 % (37.0-47.0); Hemoglobin 10.4 g/dL (12.0-16.0); Mean Corp Hgb Conc. 32.1 g/dL (33.0-37.0); Mean Corpuscular Hgb 31.2 pg (27.0-31.0); Mean Corpuscular Volume 97.3 fL (81.0-99.0); Mean Platelet Volume 9.3 fL (7.4-10.4); Platelet Count 342 10^3/uL (130-400); Red Blood Cell Count 3.33 10^6/uL (4.20-5.40); Red Cell Dist. Width 13.5 % (11.5-14.5); White Blood Cell Count 7.7 10^3/uL (4.8-10.8)
[2024-11-28 10:04] LABS: INR 0.83; PT 11.9 Sec (11.4-14.6)
[2024-11-28 10:05] LABS: APTT 26.6 Sec (23.4-35.0)
[2024-11-28 10:59] LABS: Blood Urea Nitrogen 21 mg/dl (7-17); Calcium 9.6 mg/dl (8.4-10.2); Carbon Dioxide 33 mmol/L (22-30); Chloride 97 mmol/L (98-107); Estimated Creatinine Clearance 78 ml/min; Glucose 104 mg/dl (70-99); Sodium 136 mmol/L (135-145); eGFR > 60.00
[2024-11-28 11:05] LABS: Potassium 3.2 mmol/L (3.5-5.1)
--- NOTE | 2024-11-28 11:05 | W.SUR.PREOP ---
Pre-Operative Surgical Note
-
I have examined this patient prior to the performance of the scheduled procedure.
The patient's condition is unchanged from the time of the current History and
Physical and the patient is able to undergo the scheduled procedure.
[2024-11-28] MEDS: NSS 1000 IV (12:43)
[2024-11-28] MEDS: KCL 40 MEQ PO (12:43)
--- NOTE | 2024-11-28 12:58 | PTCARENOTE ---
Pt to PACU after endovenous saphenous vein left leg ablation. Julian wrap dressing to LLE DRY and intact, pt denies pain at present. No c/o nausea. Pt talking about right hip surgeries and dislocations .
--- NOTE | 2024-11-28 19:42 | OR.RPT ---
Operative Report
Operative Report
Date of Operation: 11/28/2024
Pre Op Diagnosis: Symptomatic venous insufficiency of the left lower extremity with bleeding varicosities
Post Op Diagnosis: Symptomatic venous insufficiency of the left lower extremity with bleeding varicosities
Procedure: Radiofrequency endovenous ablation of left great saphenous vein (mid calf puncture site)
Surgeon: Berhane Gonsalez III, MD
Anesthesia: Sedation/local
Complications: None
Estimated Blood Loss: Minimal
History and Indications for Procedure: 74-year-old female with symptomatic venous insufficiency of the left lower extremity manifested by bleeding varicosities and skin ulceration.
Procedure in Detail: Ana Tijerina was correctly identified and placed supine on the operating table. After adequate induction of anesthesia the left leg was frog-legged and the table placed into a reverse Trendelenburg position. The left
leg was prepped and draped in the usual sterile fashion. A timeout procedure was performed with the nursing and anesthesia staff confirming the patient's identity as well as the nature and laterality of the procedure.
The left great saphenous vein was identified using ultrasound guidance. The vein was visualized from the mid calf, just proximal to the site of recent bleeding, to the saphenofemoral junction. An appropriate site for access was identified at the
mid calf. Local anesthesia was infiltrated into the proposed puncture site. The left great saphenous vein was accessed with a micropuncture needle under ultrasound guidance and the 7 Sloven[place] sheath was placed. Under direct ultrasound guidance the
60 cm length /7 cm tip radiofrequency ablation catheter was advanced towards the saphenofemoral junction. Using a real-time direct ultrasound measurement the tip of the catheter was positioned 2.5 cm from the saphenofemoral junction. The position
of the catheter was then externally marked using the white plastic doughnut on the catheter at the sheath exit site. Using ultrasound guidance Tumescent solution was then infiltrated circumferentially around the left great saphenous vein from the
sheath insertion site to the tip of the catheter near the saphenofemoral junction. At this point the table was flattened out. The left great saphenous vein was then ablated using 2 treatment cycles at each segment. Once completed the sheath and
catheter were removed. Direct manual pressure was held on the puncture site and hemostasis was achieved. A sterile dressing was applied.
The patient's leg was cleaned and then wrapped with an Julian wrap from the toes to the proximal thigh. The patient tolerated the procedure well was taken to the recovery room in good condition.
Signed:
Berhane Gonsalez III, MD
[facility]
[phone] ([id number])
== END 2024-11-28 13:45 | disposition home or self-care (01) ==
LOC: CATH 08:56
PROVIDERS: ATTENDING PHYSICIAN Surgery Vascular Surgery; FAMILY PHYSICIAN Family Medicine; OTHER PHYSICIAN Nuclear Medicine Nuclear Cardiology
DX: I83.228 Varicose veins of left lower extremity with both ulcer of other part of lower extremity and inflammation (principal); I83.892 Varicose veins of left lower extremity with other complications; G57.60 Lesion of plantar nerve, unspecified lower limb; M06.9 Rheumatoid arthritis, unspecified; I10 Essential (primary) hypertension; E78.5 Hyperlipidemia, unspecified; M81.0 Age-related osteoporosis without current pathological fracture; I73.00 Raynaud's syndrome without gangrene; I47.10 Supraventricular tachycardia, unspecified; K57.90 Diverticulosis of intestine, part unspecified, without perforation or abscess without bleeding; D64.9 Anemia, unspecified; Z79.890 Hormone replacement therapy; Z79.899 Other long term (current) drug therapy
CPT/HCPCS: 36475; 80048; 85027; 85610; 85730; 93005

== ENCOUNTER → 2024-12-01 09:10 | Outpatient (REF) | payer OTHER, SELFPAY | LOC: RAD 09:10 | PROVIDERS: ATTENDING PHYSICIAN Surgery Vascular Surgery; FAMILY PHYSICIAN Family Medicine | DX: L03.116 Cellulitis of left lower limb (principal); I87.2 Venous insufficiency (chronic) (peripheral) | CPT/HCPCS: 93971 ==

== ENCOUNTER → 2024-12-08 09:28 | Outpatient (REF) | payer OTHER, SELFPAY | LOC: RAD 09:28 | PROVIDERS: ATTENDING PHYSICIAN Family Medicine; REFERRING PHYSICIAN Nuclear Medicine Nuclear Cardiology | DX: R59.0 Localized enlarged lymph nodes (principal) | CPT/HCPCS: 71260; Q9967 ==

== ENCOUNTER → 2024-12-22 09:34 | Outpatient (REF) | payer OTHER, SELFPAY | LOC: HWRAD 09:34 | PROVIDERS: ATTENDING PHYSICIAN Family Medicine; OTHER PHYSICIAN Internal Medicine Critical Care Medicine; OTHER PHYSICIAN Internal Medicine Rheumatology; REFERRING PHYSICIAN Internal Medicine Endocrinology, Diabetes & Metabolism | DX: E04.1 Nontoxic single thyroid nodule (principal) | CPT/HCPCS: 76536 ==

== ENCOUNTER 2025-02-27 21:51 | Observation (INO) | payer OTHER, SELFPAY ==
[2025-02-27 15:20] VITALS: BP 145/91
[2025-02-27 15:41] LABS: % Basophils 0.6 % (0-2); % Eosinophils 1.3 % (0-6); % Immature Granulocytes 1.2 % (0-0.5); % Lymphocytes 13.3 % (20.5-51.1); % Monocytes 9.2 % (1.7-9.3); % Neutrophils 74.4 % (42.2-75.2); Absolute Basophils 0.1 10^3/uL (0-0.2); Absolute Eosinophils 0.1 10^3/uL (0-0.7); Absolute Immature Granulocytes 0.1 10^3/uL (0-0.05); Absolute Lymphocytes 1.3 10^3/uL (1.2-3.4); Absolute Monocytes 0.9 10^3/uL (0.1-0.6); Absolute Neutrophils 7.3 10^3/uL (1.4-6.5); Hematocrit 31.8 % (37.0-47.0); Hemoglobin 10.4 g/dL (12.0-16.0); Mean Corp Hgb Conc. 32.7 g/dL (33.0-37.0); Mean Corpuscular Hgb 29.1 pg (27.0-31.0); Mean Corpuscular Volume 88.8 fL (81.0-99.0); Mean Platelet Volume 8.5 fL (7.4-10.4); Nucleated Red Blood Cells % 0 %; Platelet Count 473 10^3/uL (130-400); Red Blood Cell Count 3.58 10^6/uL (4.20-5.40); Red Cell Dist. Width 16.2 % (11.5-14.5); White Blood Cell Count 9.8 10^3/uL (4.8-10.8)
[2025-02-27 15:50] LABS: Lactic Acid 0.9 mmol/L (0.7-2.0)
[2025-02-27 15:54] LABS: ALT (SGPT) 13 U/L (0-35); AST (SGOT) 19 U/L (14-36); Albumin 3.3 g/dl (3.5-5.0); Alkaline Phosphatase 84 U/L (38-126); Blood Urea Nitrogen 16 mg/dl (7-17); Carbon Dioxide 23 mmol/L (22-30); Chloride 107 mmol/L (98-107); Glucose 106 mg/dl (70-99); Potassium 4.1 mmol/L (3.5-5.1); Sodium 138 mmol/L (135-145); Total Bilirubin 0.6 mg/dl (0.2-1.3); Total Protein 5.3 g/dl (6.3-8.2); eGFR > 60.00
--- NOTE | 2025-02-27 17:49 | ED.GENMED ---
History of Present Illness
<Robby Galindo DO - Last Filed: 02/27/25 17:52>
General
Chief Complaint: Weakness
Time Seen by Provider: 02/27/25 17:23
<Emiliana Sarah PA-C - Last Filed: 02/28/25 00:22>
General
Source: patient and spouse ( at bedside)
Exam Limitations: none
Nursing documentation reviewed up to this point in time: agreed with
History of Present Illness
History of Present Illness:
Patient is a 74-year-old female with recent right total ankle replacement complicated by infection presenting to the emergency department today via EMS with generalized weakness. Patient was discharged from [facility] yesterday after 20-day
stay following right total ankle replacement complicated by infection and multiple failed flap attempts now with large open wound on right lower extremity. She was discharged home with vancomycin via PICC line, oral rifampin and Levaquin with at
home PT/visiting nurse set up. Since discharge patient has been unable to transfer to [facility] and properly administer antibiotics. It was recommended that patient present to [facility]'s ED for possible admission/placement by PT today. However�patient
was unable to obtain transfer to [facility] therefore came to [place].
Patient reports very little change in large open wound since discharge yesterday. She denies any associated fever, chills, chest pain, shortness of breath, numbness/tingling in affected leg.
Patient is being followed with orthopedic surgeon, Dr. Taurus Rodriguez at [facility].
Past History
<Robby Galindo DO - Last Filed: 02/27/25 17:52>
Past History
ED Past Medical History: Arrthythmia, HTN, Hypothyroidism and Other (RA, colitis)
ED Past Surgical History: Bowel resection, Cardiac, Cholecystectomy, Gynecological, Orthopedic (multiple jjoint replacements) and Other
Social History
Tobacco: Non-smoker
Alcohol: Daily
Drug: None
Personal:
Living: with family
Employment: Retired
Family History
Family History: Hypertension
Review of Systems
<Emiliana Sarah PA-C - Last Filed: 02/28/25 00:22>
Review of Systems
Allergies reviewed?: Yes
All Other Systems: ROS reviewed and negative except as documented in HPI and ROS
Phy Exam
<Emiliana Sarah PA-C - Last Filed: 02/28/25 00:22>
Physical Exam
Physical Exam:
Vitals: Hypertensive, otherwise vital signs stable. Afebrile
General: Patient is generally weak appearing, nontoxic
Skin: Warm and dry, no rashes or lesions. Large round wound to right lower extremity.
Head: Normocephalic, atraumatic
Eyes: Sclera nonicteric. EOMs intact. No nystagmus.
Throat: Protecting airway
Neck: Normal ROM, no cervical spine tenderness, no meningismus
Cardiac: Regular rate and rhythm, no murmurs.
Pulm: Normal respiratory effort, no wheezes, rales, rhonchi heard on exam.
Abdomen: No abdominal tenderness.
Extremities: Large open wound to right anterior ankle. Right posterior splint in place mostly wrapped in JULIAN.
Neuro: AAOx3. Grossly intact.
Psychiatric: Normal affect.
Course
<Robby Galindo DO - Last Filed: 02/27/25 17:52>
Orders/Labs/Results
Orders:
Orders
02/27/25 Breakfast
Regular
02/27/25 15:29
Complete Blood Count/With Diff Urgent
Comprehensive Metabolic Panel Urgent
Lactic Acid Urgent
02/27/25 19:33
Electrocardiogram (*1) Urgent
Reason for Study: Fatigue / Weakness
02/27/25 20:38
Admit/Transfer Patient As Directed
Co-Sign Provider:
Level of Care: Observation services
Assign to:: Medical/Surgical
Physician / Group: Ivan
Diagnosis: Weakness
PRN Pain Medication Management As Directed
May give lesser potent ordered pain med per pt: Yes
preference::
Protocol:: Medication orders for pain may be administered in a
manner that supports deferring to patient preference
when the pt is:
- Requesting an ordered lesser potent pain medication.
Least to most potent pain medications are defined
as: acetaminophen < NSAID < tramadol < opioids
(morphine, oxycodone, hydromorphone).
- Requesting a lesser dose of the same medication IF
ORDERED.
- Requesting a less intrusive route of administration
if both routes are prescribed by the provider (PO <
IV).
02/27/25 20:42
Code Status As Directed
Resuscitation Status: Full Code
02/27/25 22:00
Flush (0.9% Sodium Chloride) [Flush (Nss)] See Dose Instructions IV PER PROTOCOL
02/27/25 22:29
Acetaminophen [Tylenol] 1,000 mg PO TID
Acetaminophen [Tylenol] 650 mg PO Q4HPRN PRN
Gabapentin [Neurontin] 300 mg PO TID
Melatonin 6 mg PO HS
Rosuvastatin Calcium [Crestor] 5 mg PO HS
02/27/25 22:29
WOUND/OSTOMY CONSULT Routine
Reason for Consult: right ankle
Activity As Directed
Activity Level: Out of Bed- Chair
Elevate Extremity As Directed
Extremity:: Right Lower Extremity
Elevate with:: leg elevation wedge pillow
Frequency: While in Bed
Sequential Compression Device [Pneumatic Compression Sleeves] As Directed
Type: Knee high
Comment: left leg only
Vital Signs As Directed
Frequency: Per unit guidelines
Weight Bearing Status As Directed
Weight bearing to: Right lower extremity
Type: Non Wt. bearing
Ot Eval And Treat Routine
Pt Eval And Treat Routine
Activity Level: Out of Bed-Early Mobility
DX Deep Vein Thrombosis Video Routine
02/28/25 06:00
Levothyroxine [Synthroid] 100 mcg PO DAILY @ 0600
02/28/25 08:00
Ascorbic Acid [Vitamin C] 500 mg PO BID
Aspirin 325 mg PO DAILY
Cholecalciferol (Vitamin D3) [VITAMIN D3 (cholecalciferol)] 25 mcg PO DAILY
Oxycodone Controlled Release [Oxycontin (Controlled Release)] 20 mg PO BID
Pramipexole [Mirapex] 0.375 mg PO DAILY
Rifampin [Rifadin] 300 mg PO BID
02/28/25 12:00
LevoFLOXacin [Levaquin] 750 mg PO NOON
Abnormal Lab Results
02/27/25
15:29
RBC 3.58 L 10^6/uL
(4.20-5.40)
Hgb 10.4 L g/dL
(12.0-16.0)
Hct 31.8 L %
(37.0-47.0)
MCHC 32.7 L g/dL
(33.0-37.0)
RDW 16.2 H %
(11.5-14.5)
Plt Count 473 H 10^3/uL
(130-400)
Abs Immat Gran (auto) 0.1 H 10^3/uL
(0-0.05)
Absolute Neuts (auto) 7.3 H 10^3/uL
(1.4-6.5)
Absolute Monos (auto) 0.9 H 10^3/uL
(0.1-0.6)
Immature Gran % 1.2 H %
(0-0.5)
Lymphocytes % 13.3 L %
(20.5-51.1)
Creatinine 0.4 L mg/dL
(0.6-1.0)
Glucose 106 H mg/dl
(70-99)
Total Protein 5.3 L g/dl
(6.3-8.2)
Albumin 3.3 L g/dl
(3.5-5.0)
02/27/25 15:29
02/27/25 15:29
Vital Signs
Initial and Last Documented VS:
Initial Vital Signs
Temp Pulse Resp BP Pulse Ox
98.4 F 89 20 145/91 96
02/27/25 15:20 02/27/25 15:20 02/27/25 15:20 02/27/25 15:20 02/27/25 15:20
Last Documented Vital Signs
Temp Pulse Resp BP Pulse Ox
98.3 F 95 20 124/59 97
02/27/25 22:32 02/27/25 22:32 02/27/25 22:32 02/27/25 22:32 02/27/25 23:42
<Emiliana Sarah PA-C - Last Filed: 02/28/25 00:22>
Orders/Labs/Results
Orders:
Orders
02/27/25 Breakfast
Regular
02/27/25 15:29
Complete Blood Count/With Diff Urgent
Comprehensive Metabolic Panel Urgent
Lactic Acid Urgent
02/27/25 19:33
Electrocardiogram (*1) Urgent
Reason for Study: Fatigue / Weakness
02/27/25 20:38
Admit/Transfer Patient As Directed
Co-Sign Provider:
Level of Care: Observation services
Assign to:: Medical/Surgical
Physician / Group: Ivan
Diagnosis: Weakness
PRN Pain Medication Management As Directed
May give lesser potent ordered pain med per pt: Yes
preference::
Protocol:: Medication orders for pain may be administered in a
manner that supports deferring to patient preference
when the pt is:
- Requesting an ordered lesser potent pain medication.
Least to most potent pain medications are defined
as: acetaminophen < NSAID < tramadol < opioids
(morphine, oxycodone, hydromorphone).
- Requesting a lesser dose of the same medication IF
ORDERED.
- Requesting a less intrusive route of administration
if both routes are prescribed by the provider (PO <
IV).
02/27/25 20:42
Code Status As Directed
Resuscitation Status: Full Code
02/27/25 22:00
Flush (0.9% Sodium Chloride) [Flush (Nss)] See Dose Instructions IV PER PROTOCOL
02/27/25 22:29
Acetaminophen [Tylenol] 1,000 mg PO TID
Acetaminophen [Tylenol] 650 mg PO Q4HPRN PRN
Gabapentin [Neurontin] 300 mg PO TID
Melatonin 6 mg PO HS
Rosuvastatin Calcium [Crestor] 5 mg PO HS
02/27/25 22:29
WOUND/OSTOMY CONSULT Routine
Reason for Consult: right ankle
Activity As Directed
Activity Level: Out of Bed- Chair
Elevate Extremity As Directed
Extremity:: Right Lower Extremity
Elevate with:: leg elevation wedge pillow
Frequency: While in Bed
Sequential Compression Device [Pneumatic Compression Sleeves] As Directed
Type: Knee high
Comment: left leg only
Vital Signs As Directed
Frequency: Per unit guidelines
Weight Bearing Status As Directed
Weight bearing to: Right lower extremity
Type: Non Wt. bearing
Ot Eval And Treat Routine
Pt Eval And Treat Routine
Activity Level: Out of Bed-Early Mobility
DX Deep Vein Thrombosis Video Routine
02/28/25 06:00
Levothyroxine [Synthroid] 100 mcg PO DAILY @ 0600
02/28/25 08:00
Ascorbic Acid [Vitamin C] 500 mg PO BID
Aspirin 325 mg PO DAILY
Cholecalciferol (Vitamin D3) [VITAMIN D3 (cholecalciferol)] 25 mcg PO DAILY
Oxycodone Controlled Release [Oxycontin (Controlled Release)] 20 mg PO BID
Pramipexole [Mirapex] 0.375 mg PO DAILY
Rifampin [Rifadin] 300 mg PO BID
02/28/25 12:00
LevoFLOXacin [Levaquin] 750 mg PO NOON
Abnormal Lab Results
02/27/25
15:29
RBC 3.58 L 10^6/uL
(4.20-5.40)
Hgb 10.4 L g/dL
(12.0-16.0)
Hct 31.8 L %
(37.0-47.0)
MCHC 32.7 L g/dL
(33.0-37.0)
RDW 16.2 H %
(11.5-14.5)
Plt Count 473 H 10^3/uL
(130-400)
Abs Immat Gran (auto) 0.1 H 10^3/uL
(0-0.05)
Absolute Neuts (auto) 7.3 H 10^3/uL
(1.4-6.5)
Absolute Monos (auto) 0.9 H 10^3/uL
(0.1-0.6)
Immature Gran % 1.2 H %
(0-0.5)
Lymphocytes % 13.3 L %
(20.5-51.1)
Creatinine 0.4 L mg/dL
(0.6-1.0)
Glucose 106 H mg/dl
(70-99)
Total Protein 5.3 L g/dl
(6.3-8.2)
Albumin 3.3 L g/dl
(3.5-5.0)
02/27/25 15:29
02/27/25 15:29
Vital Signs
Initial and Last Documented VS:
Initial Vital Signs
Temp Pulse Resp BP Pulse Ox
98.4 F 89 20 145/91 96
02/27/25 15:20 02/27/25 15:20 02/27/25 15:20 02/27/25 15:20 02/27/25 15:20
Last Documented Vital Signs
Temp Pulse Resp BP Pulse Ox
98.3 F 95 20 124/59 97
02/27/25 22:32 02/27/25 22:32 02/27/25 22:32 02/27/25 22:32 02/27/25 23:42
<Emiliana Sarah PA-C - Last Filed: 02/28/25 00:22>
MDM/Problems Addressed
Differential Diagnosis Includes:
Not limited to: Deconditioning, worsening infection, acute dehydration, etc.
MDM/Problems Addressed:
74-year-old female recently discharged from [facility] following complicated right ankle replacement now with large open wound on PICC line antibiotics presenting with generalized weakness. No fevers, chills, chest pain, shortness of breath. Not able to
transfer or care for herself at home. Vitals acceptable. Physical exam as above. Patient does have large open wound to right anterior ankle with right lower extremity largely wrapped in Julian bandage w/ posterior splint in place. Labs were sent in
triage notable for mild anemia with hemoglobin of 10.4 which appears baseline for patient. There is no leukocytosis on CBC. Chemistry without clinically significant abnormalities. Lactic is normal. Patient does not meet sepsis criteria. Patient
no apparent distress at this time, declining analgesia.
This case was discussed with orthopedic surgeon, Dr. Taurus Rodriguez at [facility] given postoperative complication. Given patient is hemodynamically stable and afebrile with normal laboratory analysis�he does not feel emergent transfer is necessary at this
time. Ultimately feel patient will need assisted placement for acute rehab and administration of PICC line vancomycin. Ideally this would be done through [facility] as she will need to continue to follow-up with orthopedic surgeon in [place].
I did have lengthy discussion with patient's visiting nurse and team at [facility]. They will discuss long-term plan for patient tomorrow. However�given significant weakness feel patient is unsafe for discharge home today. Will admit to hospitalist
for observation and case management consult tomorrow for likely rehab placement. Patient accepted to hospital service in stable condition. Case seen with attending physician.
Chronic conditions affecting care:
Hypertension, recent right total ankle replacement complicated by infection
Acute Exacerbation and/or Progression of Chronic Illness:
Acutely hypertensive
<Emiliana Sarah PA-C - Last Filed: 02/28/25 00:22>
*Pulse Oximetry
Patient hypoxic: no
*EKG
Interpreted by ED Provider?: Yes
EKG Intrepretation Date: 02/27/25
Interpretation: abnormal
Comparison EKG: changes noted
Heart Rate: 101
Rate: tachycardiac
Rhythm: sinus and PAC's
[place]: normal axis
Interval: normal interval
QRS Pattern: normal QRS
Ischemia: non-specific ST changes
*Outreach Specialist Interpretation
Rate: Outreach Specialist- N/A
*Critical Care Note
Total Time (30-74mins, 75-104mins- exclusive of procedures): Not Applicable
Data Reviewed
Review of Other/Old Records Reveals: Records (Discharge summary from [facility])
Source: previous hospital records
<Emiliana Sarah PA-C - Last Filed: 02/28/25 00:22>
Patient Management
Discussion with other providers: Hospitalist and Equipment Cleaner (Case discussed with orthopedic surgeon, Dr. Rodriguez)
Escalation/DeEscalation of care consider admission/obs:
Given generalized weakness, unable to care for herself at home�will admit for observation and case management consult for likely placement
ED Attending Note
<Robby Galindo, DO - Last Filed: 02/27/25 17:52>
ED Attending Note
Patient seen and examined by attending physician: Yes
I performed the substantive portion of visit, reviewed & personally made and approve the management plan that is documented in note by myself or EMERALD.: Yes
ED Attending Note:
I have seen and evaluated the patient with a [id number] encounter. I have spoken to the advance practicer provider and involved in the medical history, the physical exam, medical decision making.
Evaluation and management service: agree unless noted differently below.
Results interpretation: agree unless noted differently below.
Focused HPI: 74-year-old female presenting for significant weakness and worsening pain of her right leg. Per patient, it appears patient had a significant hospital stay at [facility] where she had a total ankle replacement and has developed postoperative
infections. She is currently on vancomycin, rifampin and Levaquin through a PICC line. She was just discharged yesterday
Physical exam: Significant weakness noted. Open wound noted to anterior distal right leg
Medical Decision Making: Given the post operative issue, will have pending contacted to discuss possible transfer
-
Portions of this chart may have been created with voice recognition software.� Occasional wrong word or��sound alike� substitutions may have occurred due to the inherent limitations of voice recognition software.
Discharge Plan
Departure
Patient Disposition: Admit
Date of Disposition: 02/27/25
Time of Disposition: 19:46
Presentation/result/management discussed w/ accepting MD/DO: Hospitalist
Discharge Problem:
Weakness, Leg wound, right
Interventions
Interventions:
*General Assessment Last Done: 02/27/25 15:20
*Neglect/Abuse Screening Last Done: 02/27/25 18:19
*ED- Fall Risk Assessment Last Done: 02/27/25 18:13
*ED COVID-19 Vaccine History Last Done: 02/27/25 18:12
ED- Cardiac Assessment Last Done: 02/27/25 19:38
ED- Neurological Assessment Last Done: 02/27/25 19:37
ED- Pulmonary Assessment Last Done: 02/27/25 19:37
[2025-02-27 18:06] VITALS: BMI 26.6
[2025-02-27 19:35] VITALS: BP 144/85
--- NOTE | 2025-02-27 20:02 | HPS.HSE ---
Family Physician
-
Family Physician: Mynor Méndez Jr.
Chief Complaint
-
Weakness
History of Present Illness
Patient is a74 y/o female past medical history of rheumatoid arthritis, hyperlipidemia, hypothyroidism, migraine headache and recent hospitalization for right ankle replacement complicated by infection who presents with weakness. Patient was
discharged from [facility] yesterday following a 21 day hospitalization for infected right ankle replacement and non-healing wound. Patient reports initial surgery was in mid December. She reports several complications since that time including
infection resulting a non-healing wound and two failed attempt at a flap. Patient was discharge home with yesterday but is unable to transfer due to generalized weakness. She was seen by visiting nurse today who referred her to the emergency
department for evaluation.
Medical History
Past Medical History
Past Medical History: Reports Other
Additional Past Medical History:
Rheumatoid Arthritis
Hypothyroidism
Hyperlipidemia
Migraine Headache
Osteoporosis
Past Surgical History: Reports Other
Additional Past Surgical History:
Bilateral Reverse Shoulder Replacements
9 Total Shoulder Surgeries
Bilateral TKA
Bilateral TOMMIE
R TOMMIE Revision x 3
Right Foot ORIF with Extensive Retained Hardware
Right Ankle Replacement
(Patient estimates a total of 30 Orthopedic surgeries.)
TOMMIE
Cholecystectomy
Partial Small Bowel Resection (secondary to SBO)
Social History
Tobacco: Non-smoker
Alcohol: Daily (1 glass champagne daily.)
Drug: None
Personal:
Living: With Family
Family History
Family History: Other (Parents: Longevity; Sister(s): Thyroid Cancer, Breast Cancer, Multiple Sclerosis)
Allergies / Home Medications
Allergies reflects when Allergies were last updated in [employer].
Home Medications with original date entered in [employer]
Allergy/Medication List:
Allergies
Allergy/AdvReac Type Severity Reaction Status Date / Time
metoprolol Allergy Rash Verified 02/27/25 15:20
Home Medications
levothyroxine 100 mcg tablet (Synthroid) 100 mcg PO DAILY Thyroid 04/16/24
naratriptan 2.5 mg tablet 2.5 mg PO DAILYPRN PRN migraine 04/16/24
potassium chloride 20 mEq tablet,extended release(part/cryst) 20 meq PO DAILYPRN PRN take with Lasix 04/16/24
pramipexole 0.375 mg tablet,extended release 24 hr 0.375 mg PO DAILY Anti-Parkinson Agent 04/16/24
rosuvastatin 5 mg tablet 5 mg PO HS High Cholesterol 04/16/24
furosemide 80 mg tablet 80 mg PO DAILYPRN PRN swelling 11/21/24
leflunomide 20 mg tablet (Arava) 20 mg PO DAILY 11/21/24
acetaminophen 325 mg tablet (Tylenol) 975 mg PO TID 02/27/25
ascorbic acid (vitamin C) 500 mg tablet (Vitamin C) 500 mg PO BID 02/27/25
aspirin 325 mg capsule 325 mg PO DAILY 02/27/25
balsam erik-castor oil topical ointment (Venelex topical ointment) 1 applic topical BID 02/27/25
bisacodyl 10 mg rectal suppository 10 mg [place] DAILYPRN PRN constipation 02/27/25
calcium carbonate 260 mg PO DAILY 02/27/25
chlorhexidine gluconate 4 % topical liquid 1 applic topical DAILY 02/27/25
cholecalciferol (vitamin D3) 25 mcg (1,000 unit) tablet (Vitamin D3) 25 mcg PO DAILY 02/27/25
gabapentin 300 mg capsule 300 mg PO TID 02/27/25
levofloxacin 750 mg tablet 750 mg PO NOON 02/27/25
melatonin 3 mg tablet 6 mg PO HS 02/27/25
oxycodone 20 mg tablet,crush resistant,extended release 12 hr (OxyContin) 20 mg PO BID 02/27/25
polyethylene glycol 3350 17 gram oral powder packet (Miralax) 17 g PO BIDPRN PRN constipation 02/27/25
rifampin 300 mg capsule 300 mg PO BID 02/27/25
sennosides 8.6 mg tablet (senna) 8.6 mg PO BIDPRN PRN constipation 02/27/25
sodium hypochlorite 0.125 % solution (Dakin's Solution) 1 applic topical BID 02/27/25
vancomycin 1,000 mg intravenous injection 1 g IV BID 02/27/25
zinc oxide 20 % topical ointment 1 applic topical DAILY 02/27/25
Review of Systems
-
A 12 point ROS was completed and negative except as noted: Yes
Constitutional: Denies Fever
Respiratory: Denies Cough or Trouble Breathing
Cardiac: Denies Chest Pain or Palpitations
Abdomen/GI: Denies Diarrhea
Physical Exam
Vital Signs
Vital Signs
Temp Pulse Resp BP Pulse Ox
98.4 F 89 24 144/85 100
02/27/25 19:35 02/27/25 19:35 02/27/25 19:35 02/27/25 19:35 02/27/25 19:37
Physical Exam
General: Comfortable and Conversant
HEENT: Anicteric and Moist mucous membranes
Respiratory: Clear and Non Labored Respirations
Cardiac: S1/S2 and Regular Rhythm
GI: Soft and Non Tender
Musculoskeletal: No Clubbing and No Cyanosis
Skin: Other (RLE mostly wrapped in CAMMIE; Large wound area with with dressing in place)
Neuro: Awake, Alert and Oriented
Psych: Calm
Laboratory Results
-
02/27/25 15:29
02/27/25 15:29
Laboratory Results
Lactic Acid 0.9 mmol/L (0.7-2.0) 02/27/25 15:29
Total Bilirubin 0.6 mg/dl (0.2-1.3) 02/27/25 15:29
AST 19 U/L (14-36) 02/27/25 15:29
ALT 13 U/L (0-35) 02/27/25 15:29
Alkaline Phosphatase 84 U/L (38-126) 02/27/25 15:29
Data Reviewed
-
Lab Data: Labs Reviewed by me
Impression/Plan
-
Generalized Weakness, mostly likely deconditioning following prolonged hospitalization
-Consult PT/OT
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
-Patient followed by Dr. Taurus Rodriguez
-Patient scheduled to complete coarse of vancomycin on March 01
-Continue Levaquin and Rifampin
-Continue aspirin for DVT prophylaxis
-Consult Wound Care
Chronic Pain with Opioid Dependence
-Continue OxyContin
-Continue gabapentin
Hypothyroidism
-Continue levothyroxine
Hyperlipidemia
-Continue Crestor
Rheumatoid Arthritis
-Patient reports no longer taking Leflunomide
DVT proph: Aspirin
--- NOTE | 2025-02-27 21:14 | W.PN.UPDATE ---
Update Note
Progress Note Update
Patient seen in conjunction with DYNAMO REPAIRER. I agree with the findings and history and physical. I concur with assessment plan as stated unless stated otherwise.
Briefly, this is a 74-year-old female with past medical history significant for rheumatoid arthritis, multiple joint replacement with latest replacement of her prosthetic ankle joint in December status post discharge complicated by
Severe infection for which she was then admitted on February 06 and underwent multiple surgeries at [facility] and discharged on February 26. [facility] had [facility] PT. However the visiting nurse arrived
home today and saw the patient and noted that she was not safe to stay at home. In addition to high risk of falls and injury, patient have not received the hospital bed and other required factors at home. Here for ambulatory dysfunction and safety
concerns at home. [facility] did not see a reason to transfer her back there at this time.
She is sent home on longstanding antibiotics, she is supposed to finish vancomycin 2 days, indefinite treatment on levofloxacin and rifampin.
Here she is afebrile, blood pressure was 144/85 with a pulse of 89 and she is satting 100% on room air. ECG shows sinus tachycardia but otherwise unremarkable. CBC was unremarkable with white count of 9.8 and hemoglobin of 10.4. Electrolytes
BUN/creatinine were all stable and within the normal range.
Patient is here s/p extensive surgical intervention to the right ankle with discharge to home SNF and PT but unable to cope at home. Will need placement.
- admit to med/surg observation
- continue her antibiotics Vancomycin, Rifampin and levaquin
- wound care consultation
- PT evaluation
- Case management.
Cardiac history - diastolic CHF with paroxysmal SVT and atrial ectopy, no afib.
- continue her lasix daily
- rosuvastatin
parkinson
- continue pramipexole
DVT PPX - SCDs
Code status - Full Code
[2025-02-27 22:32] VITALS: BP 124/59
--- NOTE | 2025-02-27 23:25 | VATNOTE ---
Paged by PCN to notify VAT that patient in ER has a PICC line. Patient with single lumen PICC to right arm, dressing C/D/I and dressing(and cap) was changed today by home care nurse. No Biopatch but patient has a CHG dressing. PCN aware need for
chest xray to confirm placement prior to use.
[2025-02-27] MEDS: OXYCONTIN (CONTROLLED RELEASE) 20 MG PO (23:36)
[2025-02-27] MEDS: MELATONIN 6 MG PO (23:36)
[2025-02-27] MEDS: CRESTOR 5 MG PO (23:36)
[2025-02-27] MEDS: NEURONTIN 300 MG PO (23:36)
[2025-02-27] MEDS: TYLENOL 1000 MG PO (23:37)
[2025-02-28] MEDS: VANCOCIN 200 IV ×2 (01:12→11:50)
[2025-02-28] MEDS: SYNTHROID 100 MCG PO (05:51)
[2025-02-28] MEDS: NEURONTIN 300 MG PO ×2 (09:08→16:59)
[2025-02-28] MEDS: VITAMIN C 500 MG PO (09:08)
[2025-02-28] MEDS: ASPIRIN 325 MG PO (09:08)
[2025-02-28] MEDS: RIFADIN 300 MG PO (09:08)
[2025-02-28] MEDS: TYLENOL 1000 MG PO ×2 (09:08→16:58)
[2025-02-28] MEDS: VITAMIN D3 (cholecalciferol) 25 MCG PO (09:08)
[2025-02-28] MEDS: MIRAPEX 0.375 MG PO (09:09)
[2025-02-28] MEDS: OXYCONTIN (CONTROLLED RELEASE) 20 MG PO (09:12)
--- NOTE | 2025-02-28 10:57 | W.PN.HOSP.TC ---
Today's Communication/Plan
-
d/c
Assessment / Plan
Assessment / Plan
Gen: NAD, AAOx3.
Eyes: EOMI, PERRLA, no scleral icterus.
Neck: supple.
CV: RRR, +S1/S2, no m/r/g.
Resp: CTAB, no rales, wheezes, or rhonchi.
Abd: +BS, soft, NT, ND
Skin: No rashes.
Neuro: CN 2-12 intact, non-focal.
Psych: Normal mood and affect.
CXR: Right PICC line is seen with tip in the mid to distal SVC. Small bilateral pleural effusions. Pulmonary vascularity slightly prominent.
Generalized Weakness:
-mostly likely deconditioning following recent prolonged hospitalization
-Consult PT/OT
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
-Patient followed by Dr. Taurus Rodriguez
-Patient scheduled to complete coarse of vancomycin on March 01
-Continue Levaquin and Rifampin
-Continue aspirin for DVT prophylaxis
-Consult Wound Care
Chronic Pain with Opioid Dependence
-Continue OxyContin
-Continue gabapentin
Hypothyroidism
-Continue levothyroxine
Hyperlipidemia
-Continue Crestor
Rheumatoid Arthritis
-Patient reports no longer taking Leflunomide
FULL/Aspirin
Medically cleared for discharge. Case management aware.
Anticipated Discharge: Today
Subjective/Interval History
-
Date of Service: February 28, 2025
Denies CP/SOB.
Objective Data
-
Vital Signs:
Vital Signs
Temp Pulse Resp BP Pulse Ox
97.9 F 95 20 124/59 97
02/28/25 07:25 02/27/25 22:32 02/27/25 22:32 02/27/25 22:32 02/27/25 23:42
I&O
02/27/25 02/28/25 03/01/25
06:59 06:59 06:59
Intake Total 680 / 680
Balance 680 / 680
[2025-02-28 11:05] VITALS: BP 122/65
--- NOTE | 2025-02-28 11:55 | CM ---
Addendum entered by [facility] 02/28/25 16:01:
1730 pickup
Addendum entered by [facility] 02/28/25 15:19:
Pt offered bed at [facility]
Admissions Riri [phone]
Pt in agreement and pleased
[employer] auth obtained via [employer]
Dr Hoyos aware and pt cleared for dc
Medical necessity completed
Support Services Coordinator to arrange for BLS transport
She will alert spouse
DC Paperwork sent via [employer] auth #[id number] 02/28-03/06
Discharge Disposition- Rehab at [facility] via BLS
Phone- [phone]
Addendum entered by [facility] 02/28/25 12:24:
Call from Isi Mccall/Deputy General Counsel [facility] [phone]
Noted pt declined transport that as arranged by them to [facility] due to out of pocket cost
SNF was recommended initially while hospitalized but was declined due to co-pays
Pt was to dc to 2nd floor at her home
Due to stairglide, ambulance crew could not safely take her up the steps
Pt has commode in the home but hospital bed was not arranged at home as plan initially for her to be in her bedroom
Original Note:
CM met with pt and spouse bedside
Pt dc to home on 02/26 from [facility] after prolonged hospitalization
Was set up with home infusion, picc and [facility] (7 days of daily skilled services)
Hospital bed, WW and commode were supposed to be set up but were never delivered
Upon first residential visit, pt was deemed unsafe at home due to severe ADL dysfunction without DMEs
Came to ED instead of [facility] ED due to transport issues
Physician transfer request to [facility] surgeon Dr Rodriguez was denied
Pt and spouse requesting SNF placement
They reside in a [facility] with 1 ALCIDES and full flight to second floor
Pt is typically indep with ADLs with use of a SPC and cpap
Pt asked for wide net of referrals to [address] [place] [id number], Susana Rodriguez and [facility] of particular interest
PASRR completed and referrals sent via [facility]
Pt will require [employer] auth
Plan for IV vanco through 03/01
Of note, pt considering patient request to Dr Rodriguez for transfer
Call with [facility] [phone]
Confirmed per their therapy and nursing notes that pt did receive some services
Did not do well with home therapy session, too weak for home
They can consider accepting her for service again if needed
Discharge Disposition- SNF
--- NOTE | 2025-02-28 12:01 | WOUNDNOTE ---
R POSTERIOR LOWER LEG GRAFT SITE
--- NOTE | 2025-02-28 12:02 | WOUNDNOTE ---
R POSTERIOR LOWER LEG GRAFT SITE AND SURGICAL SITE
--- NOTE | 2025-02-28 12:04 | WOUNDNOTE ---
R DORSAL FOOT SURGICAL SITE
--- NOTE | 2025-02-28 12:04 | WOUNDNOTE ---
R MEDIAL FOOT/ANTERIOR ANKLE
--- NOTE | 2025-02-28 12:05 | WOUNDNOTE ---
R FOOT MEDIAL LOWER LEG
--- NOTE | 2025-02-28 12:05 | WOUNDNOTE ---
R ANTERIOR VIEW OF LOWER LEG AND FOOT
--- NOTE | 2025-02-28 12:06 | WOUNDNOTE ---
R LEG AND SPLINT
--- NOTE | 2025-02-28 12:07 | WOUNDNOTE ---
LOWER MID BACK
--- NOTE | 2025-02-28 12:07 | WOUNDNOTE ---
SACRUM AND BUTTOCKS
--- NOTE | 2025-02-28 12:08 | WOUNDNOTE ---
L AXILLA HOST SITE EXTENDING DOWN L LATERAL SIDE OF CHEST
--- NOTE | 2025-02-28 12:10 | WOUNDNOTE ---
R LATERAL ANKLE GRAFT BLUE STITCH TO CHECK PULSE.
--- NOTE | 2025-02-28 12:15 | WOUNDNOTE ---
[facility] RN note: Patient admitted with R leg wound and weakness.
See H&P for complete history.
PMH: Patient is a74 y/o female past medical history of rheumatoid arthritis, hyperlipidemia, hypothyroidism, migraine headache and recent hospitalization for right ankle replacement complicated by infection who presents with weakness. Patient was
discharged from [facility] yesterday following a 21 day hospitalization for infected right ankle replacement and non-healing wound. Patient reports initial surgery was in mid December. She reports several complications since that time including
infection resulting a non-healing wound and two failed attempt at a flap.
Wound Location and type/assessment: Patient admitted with: R foot and ankle with failing surgical flap done at [facility] by Dr. Taurus Rodriguez. See photos- host site from L Axilla/chest healed incision, scant drainage on old surgical dressing.
R posterior lower leg graft site with makenna essentially healed, no drainage. R foot/ankle with flap, edges dehisced, eschar brown and sharma on edges and some on anterior aspect, makenna surrounding. R lateral ankle with blue stitch, patient reports
is where pulse located with Doppler. Confirmed pedal pulse and graft pulse with Doppler, nurse assisted. Molded Splint in use under lower posterior leg and foot. Discussed current wound care with patient and weight bearing. Patient states, adaptic
then Dakin's moistened gauze followed by dry dressing, splint and julian wrap lightly to secure. Patient requested open area in dressing to assess skin color of graft and check pulse. Non weight bearing on R foot, can only dangle side of bed for 25
minutes 3 x per day patient reports. Patient gave this flex o writer operator phone number of Dr. [phone] which turned out to be medical record company that would not allow this flex o writer operator any information. L buttock with stage 3 PI, blanchable red sacrum.
Partial thickness ulcer mid back suspect from shearing vs stage 2 PI. Patient only home for 1 day, has not been out of bed, she states.
Appetite: Poor patient reports. Trying to take protein supplement drink that family got for her, she states.
Pressure redistribution devices in place: Called [facility] for [facility] air bed, patient can turn self to R side, needs help turning to L. Turned to R semi side lying position. R leg elevated with pillow and foam wedge.
Plan: Silicone foams changed on Buttocks and mid back. L host axilla site applied adaptic, Telfa, silicone foam.
R heel applied silicone foam to protect. R graft site on foot/ankle applied adaptic, Vashe moistened gauze, ABD pad and Kerlix. Adaptic and dry dressing to posterior R lower leg. Molded splint placed back on, rewrapped with soft cotton roll to pad
splint prior to applying. Secured splint with Kerlix and Julian wrap not too tight. Will attempt to locate correct phone number of Dr. Rodriguez to confirm wound care orders, patient will follow up with surgeon as scheduled. Possible transfer back to [facility]. Will confirm orders with hospitalist and updated nurse.
Updated care plan and will follow as needed.
Note to case management of equipment requested for discharge: TBD.
[2025-02-28 12:20] VITALS: BP 130/72; BP 88/41
[2025-02-28] MEDS: LEVAQUIN 750 MG PO (12:32)
[2025-02-28 12:40] VITALS: BP 130/72; BP 88/41
[2025-02-28 13:39] VITALS: BMI 26.6
[2025-02-28 14:00] VITALS: BP 128/75
--- NOTE | 2025-02-28 14:21 | WOUNDNOTE ---
RACHNA RN NOTE: Call placed to Dr. Rodriguez's office # [phone]. Spoke with asset protection officer who will relay message to Dr. Rodriguez confirming wound care and call this signwriter back later today or tomorrow.
--- NOTE | 2025-02-28 15:23 | W.DCSUMMARY ---
Discharge Summary
Discharge Data
Date of Admission: 02/27/25
Date of Discharge: 02/28/25
-
Pending Results: No
Hospital Course
Primary diagnoses:
Generalized Weakness likely due to deconditioning following recent prolonged hospitalization
Secondary diagnoses:
Chronic Pain with Opioid Dependence
Hypothyroidism
Hyperlipidemia
Rheumatoid Arthritis
Consultants:
None
Imaging:
CXR: Right PICC line is seen with tip in the mid to distal SVC. Small bilateral pleural effusions. Pulmonary vascularity slightly prominent.
74-year-old female who presented with a chief complaint of weakness as outlined in the H&P done on admission. Hospital course by problem list:
Generalized Weakness: This was mostly likely due to deconditioning following recent prolonged hospitalization. Patient was seen in consultation by PT and OT and case management assisted with placing the patient in a senior care facility.
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 Taurus Rodriguez at [place]. Her antibiotics from prior to admission were continued. Her aspirin for DVT prophylaxis was continued.
Discharge Plan
-
Patient Disposition: Fpc/SNF
Discharge Diagnosis/Procedures: generalized Weakness likely due to deconditioning following recent prolonged hospitalization
Condition: Good
Diet: Low Cholesterol
Activity: With assistance
Driving Restrictions: No driving
Activity Restrictions/Additional Instructions:
Wound Care Instructions
L buttock: clean with saline, Santyl, adaptic and silicone foam change daily and prn drainge.
Mid back: clean with saline, silicone foam change q other day and prn drainage.
L host axilla site: clean with saline, adaptic, silicone foam change q 3 days and prn drainage
R heel: silicone foam to protect change prn soilage.
R graft site on foot/ankle: clean with saline, adaptic, Vashe moistened gauze, ABD pad and Kerlix. Adaptic and dry dressing to posterior R lower leg.
change daily and prn drainage.
Molded splint to R leg, Secure splint with Kerlix and Julian wrap *not too tight.
keep area open R lateral ankle dressing, to check for pulse (blue stitch) BID
Leg elevation and non weight bearing R foot.
Increase protein in diet.
Follow up with Dr. Rodriguez at [facility].
Referrals:
Mynor Méndez Jr., DO [Family Provider] - in less than 1 week
Prescriptions:
Continued
levothyroxine [Synthroid] 100 mcg Tablet
100 mcg PO DAILY
naratriptan 2.5 mg Tablet
2.5 mg PO DAILYPRN PRN (Reason: migraine)
rosuvastatin 5 mg Tablet
5 mg PO HS
pramipexole 0.375 mg tablet extended release 24 hr
0.375 mg PO DAILY
potassium chloride 20 mEq Tablet,Er Particles/Crystals
20 meq PO DAILYPRN PRN (Reason: take with Lasix)
leflunomide [Arava] 20 mg Tablet
20 mg PO DAILY
furosemide 80 mg tablet
80 mg PO DAILYPRN PRN (Reason: swelling)
sennosides [senna] 8.6 mg Tablet
8.6 mg PO BIDPRN PRN (Reason: constipation)
polyethylene glycol 3350 [Miralax] 17 gram Powder In Packet
17 g PO BIDPRN PRN (Reason: constipation)
melatonin 3 mg Tablet
6 mg PO HS
vancomycin 1,000 mg recon soln
1 g IV BID
zinc oxide 20 % Ointment
1 applic TOPICAL DAILY
rifampin 300 mg Capsule
300 mg PO BID
ascorbic acid (vitamin C) [Vitamin C] 500 mg Tablet
500 mg PO BID
bisacodyl 10 mg Suppository
10 mg MT DAILYPRN PRN (Reason: constipation)
gabapentin 300 mg Capsule
300 mg PO TID
levofloxacin 750 mg Tablet
750 mg PO NOON
chlorhexidine gluconate 4 % Liquid
1 applic TOPICAL DAILY
calcium carbonate 260 mg calcium (648 mg) Tablet
260 mg PO DAILY
Dakin's Solution 0.125 % Solution
1 applic TOPICAL BID
cholecalciferol (vitamin D3) [Vitamin D3] 25 mcg (1,000 unit) Tablet
25 mcg PO DAILY
oxycodone [OxyContin] 20 mg Tablet,Oral Only,Ext.Rel.12 Hr
20 mg PO BID
balsam erik-castor oil [Venelex] Ointment
1 applic TOPICAL BID
aspirin 325 mg Capsule
325 mg PO DAILY
acetaminophen [Tylenol] 325 mg Tablet
975 mg PO TID
Discharge Orders:
Discharge Patient (As Directed); Ordered 02/28/25
Ordered By: Jose Francisco Hoyos
Discharge Date and Time
Print Language: KISWAHILI
[2025-02-28 18:00] VITALS: BP 135/86
== END 2025-02-28 18:42 ==
LOC: ED 21:51
PROVIDERS: ADMITTING PHYSICIAN Internal Medicine; ATTENDING PHYSICIAN Internal Medicine; EMERGENCY PHYSICIAN Student in an Organized Health Care Education/Training Program; FAMILY PHYSICIAN Family Medicine
DX: R53.1 Weakness (principal); G89.29 Other chronic pain; F11.20 Opioid dependence, uncomplicated; Z79.899 Other long term (current) drug therapy; E03.9 Hypothyroidism, unspecified; E78.5 Hyperlipidemia, unspecified; M06.9 Rheumatoid arthritis, unspecified; J90 Pleural effusion, not elsewhere classified; Z79.82 Long term (current) use of aspirin
CPT/HCPCS: 71045; 80053; 83605; 85025; 93005; 99285; G0378

== ENCOUNTER 2025-03-23 17:06 | Emergency (ER) | payer OTHER, SELFPAY ==
[2025-03-23 17:09] VITALS: BP 142/75
[2025-03-23 19:55] LABS: % Basophils 0.4 % (0-2); % Eosinophils 1.8 % (0-6); % Immature Granulocytes 0.6 % (0-0.5); % Lymphocytes 17.5 % (20.5-51.1); % Monocytes 13.5 % (1.7-9.3); % Neutrophils 66.2 % (42.2-75.2); Absolute Basophils 0.1 10^3/uL (0-0.2); Absolute Eosinophils 0.2 10^3/uL (0-0.7); Absolute Immature Granulocytes 0.1 10^3/uL (0-0.05); Absolute Lymphocytes 2.2 10^3/uL (1.2-3.4); Absolute Monocytes 1.7 10^3/uL (0.1-0.6); Absolute Neutrophils 8.3 10^3/uL (1.4-6.5); Hematocrit 26.1 % (37.0-47.0); Hemoglobin 8.6 g/dL (12.0-16.0); Mean Corpuscular Hgb 29.7 pg (27.0-31.0); Nucleated Red Blood Cells % 0 %; Platelet Count 335 10^3/uL (130-400); Red Cell Dist. Width 16.2 % (11.5-14.5); White Blood Cell Count 12.5 10^3/uL (4.8-10.8)
[2025-03-23] MEDS: DILAUDID 0.5 MG IV (19:56)
[2025-03-23 20:11] LABS: ALT (SGPT) 11 U/L (0-35); AST (SGOT) 18 U/L (14-36); Albumin 3.7 g/dl (3.5-5.0); Alkaline Phosphatase 82 U/L (38-126); Blood Urea Nitrogen 43 mg/dl (7-17); Calcium 9.5 mg/dl (8.4-10.2); Carbon Dioxide 25 mmol/L (22-30); Chloride 102 mmol/L (98-107); Glucose 107 mg/dl (70-99); Potassium 4.1 mmol/L (3.5-5.1); Sodium 137 mmol/L (135-145); Total Bilirubin 0.5 mg/dl (0.2-1.3); Total Protein 5.4 g/dl (6.3-8.2); eGFR > 60.00
[2025-03-23 20:14] LABS: NT-proBNP 973 pg/ml
--- NOTE | 2025-03-23 21:42 | ED.GENMED ---
History of Present Illness
General
Chief Complaint: DVT/Possible Blood Clot
Source: patient
Exam Limitations: none
Time Seen by Provider: 03/23/25 18:58
History of Present Illness
History of Present Illness:
75-year-old female presents for evaluation of increased leg swelling and pain. She had an ankle replacement performed in December of this year at [facility]. She had complications with the surgery and with soft tissue flaps and is
on chronic antibiotics at this time. She has been on oxycodone for pain. The pain is worse right now. She also notes increased swelling to the left leg. She denies chest pain or shortness of breath. She is not anticoagulated. She was concerned
about a blood clot
Past History
Past History
ED Past Medical History: Arrthythmia, HTN, Hypothyroidism and Other (RA, colitis)
ED Past Surgical History: Bowel resection, Cardiac, Cholecystectomy, Gynecological, Orthopedic (multiple jjoint replacements) and Other
Social History
Tobacco: Non-smoker
Alcohol: Daily
Drug: None
Personal:
Living: with family
Employment: Retired
Family History
Family History: Hypertension
Phy Exam
Physical Exam
Physical Exam:
General: Well-appearing female looks uncomfortable no acute respiratory distress
HEENT: Normocephalic atraumatic
Heart: Regular rate and rhythm no murmurs
Lungs: Clear no wheeze
Extremities: Pitting edema noted to the right leg. There is an Julian bandage with a splint applied to the lower right leg. Compartments are soft the right toes are pink and warm with good sensation
Skin no erythema or fluctuance proximal to the surgical dressing
Course
Orders/Labs/Results
Orders:
Orders
03/23/25 17:19
US Legs, Right [US Periph Venous LOWER Ext RT] Urgent
Comment:
Reason For Exam: recent surgery, swelling
03/23/25 19:09
Electrocardiogram (*1) Urgent
Reason for Study: Palpitations
EKG- Treatment ONCE
03/23/25 19:32
HYDROmorphone [Dilaudid] 0.5 mg IV NOW STA
03/23/25 19:44
Complete Blood Count/With Diff Urgent
Comprehensive Metabolic Panel Urgent
NT-proBNP Urgent
Abnormal Lab Results
03/23/25
19:44
WBC 12.5 H 10^3/uL
(4.8-10.8)
RBC 2.90 L 10^6/uL
(4.20-5.40)
Hgb 8.6 L g/dL
(12.0-16.0)
Hct 26.1 L %
(37.0-47.0)
RDW 16.2 H %
(11.5-14.5)
Abs Immat Gran (auto) 0.1 H 10^3/uL
(0-0.05)
Absolute Neuts (auto) 8.3 H 10^3/uL
(1.4-6.5)
Absolute Monos (auto) 1.7 H 10^3/uL
(0.1-0.6)
Immature Gran % 0.6 H %
(0-0.5)
Lymphocytes % 17.5 L %
(20.5-51.1)
Monocytes % 13.5 H %
(1.7-9.3)
BUN 43 H mg/dl
(7-17)
Glucose 107 H mg/dl
(70-99)
Total Protein 5.4 L g/dl
(6.3-8.2)
03/23/25 19:44
03/23/25 19:44
Vital Signs
Initial and Last Documented VS:
Initial Vital Signs
Temp Pulse Resp BP Pulse Ox
98.1 F 60 21 142/75 100
03/23/25 17:09 03/23/25 17:09 03/23/25 17:09 03/23/25 17:09 03/23/25 17:09
Last Documented Vital Signs
Temp Pulse Resp BP Pulse Ox
98.1 F 60 21 142/75 100
03/23/25 17:09 03/23/25 17:09 03/23/25 17:09 03/23/25 17:09 03/23/25 19:01
MDM/Problems Addressed
Differential Diagnosis Includes:
Patient here with right leg swelling and discomfort. Concern for DVT. Ultrasound leg negative for DVT. She did feel better after Dilaudid. Labs reviewed without significant finding.
Recommend she follow-up with [place] surgeons for further pain management options. She is currently on antibiotics. No indication for admission at this time
*Critical Care Note
Total Time (30-74mins, 75-104mins- exclusive of procedures): Not Applicable
ED Attending Note
-
Portions of this chart may have been created with voice recognition software.� Occasional wrong word or��sound alike� substitutions may have occurred due to the inherent limitations of voice recognition software.
Discharge Plan
Departure
Patient Disposition: Home (Routine Discharge)
Date of Disposition: 03/23/25
Time of Disposition: 21:46
Patient with high blood pressure during this ER visit?: No
Discharge Problem:
Leg swelling
Prescriptions:
No Action
levothyroxine [Synthroid] 100 mcg Tablet
100 mcg PO DAILY
naratriptan 2.5 mg Tablet
2.5 mg PO DAILYPRN PRN (Reason: migraine)
rosuvastatin 5 mg Tablet
5 mg PO HS
pramipexole 0.375 mg tablet extended release 24 hr
0.375 mg PO DAILY
potassium chloride 20 mEq Tablet,Er Particles/Crystals
20 meq PO DAILYPRN PRN (Reason: take with Lasix)
leflunomide [Arava] 20 mg Tablet
20 mg PO DAILY
furosemide 80 mg tablet
80 mg PO DAILYPRN PRN (Reason: swelling)
sennosides [senna] 8.6 mg Tablet
8.6 mg PO BIDPRN PRN (Reason: constipation)
polyethylene glycol 3350 [Miralax] 17 gram Powder In Packet
17 g PO BIDPRN PRN (Reason: constipation)
melatonin 3 mg Tablet
6 mg PO HS
vancomycin 1,000 mg recon soln
1 g IV BID
zinc oxide 20 % Ointment
1 applic TOPICAL DAILY
rifampin 300 mg Capsule
300 mg PO BID
ascorbic acid (vitamin C) [Vitamin C] 500 mg Tablet
500 mg PO BID
bisacodyl 10 mg Suppository
10 mg CA DAILYPRN PRN (Reason: constipation)
gabapentin 300 mg Capsule
300 mg PO TID
levofloxacin 750 mg Tablet
750 mg PO NOON
chlorhexidine gluconate 4 % Liquid
1 applic TOPICAL DAILY
calcium carbonate 260 mg calcium (648 mg) Tablet
260 mg PO DAILY
Dakin's Solution 0.125 % Solution
1 applic TOPICAL BID
cholecalciferol (vitamin D3) [Vitamin D3] 25 mcg (1,000 unit) Tablet
25 mcg PO DAILY
oxycodone [OxyContin] 20 mg Tablet,Oral Only,Ext.Rel.12 Hr
20 mg PO BID
balsam erik-castor oil [Venelex] Ointment
1 applic TOPICAL BID
aspirin 325 mg Capsule
325 mg PO DAILY
acetaminophen [Tylenol] 325 mg Tablet
975 mg PO TID
Referrals:
Mynor Méndez Jr., DO [Family Provider] -
Activity Restrictions/Additional Instructions:
Please keep leg elevated. Continue your current pain medication regimen. Follow-up with your surgeon for further recommendations
Interventions
Interventions:
*Risk Screen - Suicide Last Done: 03/23/25 17:09
*Neglect/Abuse Screening Last Done: 03/23/25 17:09
ED- Cardiac Assessment Last Done: 03/23/25 19:01
ED- Pulmonary Assessment Last Done: 03/23/25 19:01
ED-Peripheral Vascular Assessment Last Done: 03/23/25 19:01
ED-Skin Assessment Last Done: 03/23/25 19:01
Discharge Date and Time
Print Language: THAI
== END 2025-03-23 22:11 | disposition home or self-care (01) ==
LOC: EMR 17:06
PROVIDERS: Physician Assistant; EMERGENCY PHYSICIAN Emergency Medicine; FAMILY PHYSICIAN Family Medicine
DX: R22.41 Localized swelling, mass and lump, right lower limb (principal); M79.604 Pain in right leg; E03.9 Hypothyroidism, unspecified; I10 Essential (primary) hypertension; Z98.890 Other specified postprocedural states; Z79.2 Long term (current) use of antibiotics
CPT/HCPCS: 99284; 96374; 80053; 83880; 85025; 93005; 93971

== ENCOUNTER → 2025-07-05 17:28 | Outpatient (REF) | payer OTHER, SELFPAY | LOC: RAD 17:28 | PROVIDERS: ATTENDING PHYSICIAN Orthopaedic Surgery; FAMILY PHYSICIAN Family Medicine | DX: M79.89 Other specified soft tissue disorders (principal); Z96.661 Presence of right artificial ankle joint | CPT/HCPCS: 93970 ==

== ENCOUNTER 2025-07-21 21:02 | Emergency (ER) | payer OTHER, SELFPAY ==
[2025-07-21 21:05] VITALS: BP 138/71
[2025-07-21 21:44] LABS: Hematocrit 28.9 % (37.0-47.0); Hemoglobin 9.2 g/dL (12.0-16.0); Mean Corp Hgb Conc. 31.8 g/dL (33.0-37.0); Mean Corpuscular Volume 86.8 fL (81.0-99.0); Nucleated Red Blood Cells % 0 %; Platelet Count 349 10^3/uL (130-400); Red Cell Dist. Width 16.8 % (11.5-14.5)
[2025-07-21 22:09] LABS: ALT (SGPT) 32 U/L (0-35); AST (SGOT) 32 U/L (14-36); Albumin 4.1 g/dl (3.5-5.0); Alkaline Phosphatase 104 U/L (38-126); Blood Urea Nitrogen 55 mg/dl (7-17); Calcium 10.7 mg/dl (8.4-10.2); Carbon Dioxide 23 mmol/L (22-30); Chloride 108 mmol/L (98-107); Glucose 106 mg/dl (70-99); Potassium 4.3 mmol/L (3.5-5.1); Sodium 140 mmol/L (135-145); Total Protein 6.0 g/dl (6.3-8.2); eGFR > 60.00
--- NOTE | 2025-07-22 02:36 | ED.GENMED ---
History of Present Illness
General
Chief Complaint: Catheter/Tube Problem
Source: patient and family
Exam Limitations: none
Time Seen by Provider: 07/21/25 23:48
Nursing documentation reviewed up to this point in time: agreed with
History of Present Illness
History of Present Illness:
Note:
CHIEF COMPLAINT(S)
Concerns regarding the peripherally inserted central catheter (PICC) line without the presence of symptoms such as fever.
HISTORY OF PRESENT ILLNESS
The patient is a 75-year-old female who presented concerning the status of her PICC line, placed for the administration of antibiotics following complications from an ankle replacement. The patient reported a significant history of hospitalization,
having spent most of the past eight months in hospital care, including a recent 24-day stay. There are no reported systemic symptoms such as fever, but there is anxiety regarding the effectiveness and maintenance of the PICC line. The PICC line is
used for antibiotic administration, with one medication named Daptomycin and another medication to which the patient could not recall the name. The patient is under the care of Dr. Taurus Rodriguez, who specializes in both orthopedic and plastic surgery.
The discussion indicated a plan for nursing visits and possible further intervention with the PICC line to be replaced for the next day.
PHYSICAL EXAM
General: Alert, no acute distress.
Skin: Warm, dry. Erythema around the right bicep near the PICC line. Disc in place.
Head: Normocephalic, atraumatic.
Neck: Supple, trachea midline.
Eye Ears, nose, mouth, and throat: Oral mucosa moist.
Cardiovascular: Normal peripheral perfusion, No edema.
Respiratory: Respirations are non-labored.
Gastrointestinal: Abdomen nondistended
Musculoskeletal: Normal range of motion, normal strength.
Neurological: Alert and oriented to person, place, time, and situation, No focal neurological deficit observed.
Psychiatric: Cooperative, appropriate mood & affect.
PLAN
1. Monitor the condition and functionality of the current PICC line.
2. Prepare for further intervention and placement of a new PICC line if necessary.
3. Continue the current antibiotic treatments as per the regimen.
4. Schedule and ensure nursing visits and evaluations as planned.
5. Follow up with Dr. Taurus Rodriguez or the appropriate specialist to assess the situation and plan further limb salvage strategies.
DIFFERENTIAL DIAGNOSIS
The Differential Diagnosis includes, in no particular order and is not limited to:
1. PICC line infection
2. Thrombophlebitis
3. Venous thrombosis
4. Cellulitis
5. Osteomyelitis
6. Drug reaction or side effects
7. Poor wound healing
8. Peripheral vascular disease
9. Soft tissue infection
10. Hardware infection
Disposition:
SUMMARY OF ENCOUNTER
The patient, a 75-year-old female, presented to the emergency department with concerns regarding her peripherally inserted central catheter (PICC) line. The line was removed in a sterile manner, and the tip was cut and sent for culture. The patient
expressed a desire not to remain in the hospital overnight and plans to return the following day for a PICC line replacement with the intravenous team present.
DISPOSITION
Discharge.
PROCEDURES
The PICC line was removed in a sterile fashion, and the catheter tip was cultured.
FOLLOW-UP INSTRUCTIONS
The patient is instructed to return the following day for a PICC line replacement with the intravenous team.
MEDICAL DECISION MAKING
- Number and Complexity of Problems Addressed: Chronic conditions affecting care include her need for long-term antibiotic therapy due to complications from an ankle replacement. Possible differential diagnoses considered were PICC line infection
and other related complications as listed: PICC line infection, thrombophlebitis, venous thrombosis, cellulitis, osteomyelitis, drug reaction or side effects, poor wound healing, peripheral vascular disease, soft tissue infection, and hardware
infection.
- Risk: Consideration of Admission/Observation was deemed unnecessary due to the patients stable condition and her choice to discharge. She is expected to have a follow-up intervention the next day. The patient will continue antibiotic therapy per
her regimen, which requires monitoring for effectiveness and potential toxicity.
Past History
Past History
ED Past Medical History: Arrthythmia, HTN, Hypothyroidism and Other (RA, colitis)
ED Past Surgical History: Bowel resection, Cardiac, Cholecystectomy, Gynecological, Orthopedic (multiple jjoint replacements) and Other
Social History
Tobacco: Non-smoker
Alcohol: Daily
Drug: None
Personal:
Living: with family
Employment: Retired
Family History
Family History: Hypertension
Phy Exam
Physical Exam
Physical Exam:
.
Course
Orders/Labs/Results
Orders:
Orders
07/21/25 21:12
CR Chest - 2 Views Urgent
Comment:
Reason For Exam: confirm PICC placement
07/21/25 21:30
Complete Blood Count/With Diff Urgent
Comprehensive Metabolic Panel Urgent
07/22/25 02:51
Patient Line Culture Urgent
REESE Source: PICC
Specimen Description:
Date Specimen was Collected: 07/22/25
Time Specimen was Collected: 02:45
Comment: PICC Line
Abnormal Lab Results
07/21/25
21:30
RBC 3.33 L 10^6/uL
(4.20-5.40)
Hgb 9.2 L g/dL
(12.0-16.0)
Hct 28.9 L %
(37.0-47.0)
MCHC 31.8 L g/dL
(33.0-37.0)
RDW 16.8 H %
(11.5-14.5)
Absolute Monos (auto) 1.1 H 10^3/uL
(0.1-0.6)
Absolute Eos (auto) 1.2 H 10^3/uL
(0-0.7)
Monocytes % 11.9 H %
(1.7-9.3)
Eosinophils % 12.4 H %
(0-6)
Chloride 108 H mmol/L
(98-107)
BUN 55 H mg/dl
(7-17)
Glucose 106 H mg/dl
(70-99)
Calcium 10.7 H mg/dl
(8.4-10.2)
Total Protein 6.0 L g/dl
(6.3-8.2)
07/21/25 21:30
07/21/25 21:30
Vital Signs
Initial and Last Documented VS:
Initial Vital Signs
Temp Pulse Resp BP Pulse Ox
98.4 F 102 18 138/71 99
07/21/25 21:05 07/21/25 21:05 07/21/25 21:05 07/21/25 21:05 07/21/25 21:05
Last Documented Vital Signs
Temp Pulse Resp BP Pulse Ox
98.4 F 82 20 121/61 98
07/21/25 21:05 07/22/25 03:03 07/22/25 03:03 07/22/25 03:03 07/22/25 03:03
*Pulse Oximetry
SaO2: 99
Oxygen Mode of Delivery: Room air
Patient hypoxic: no
*Critical Care Note
Total Time (30-74mins, 75-104mins- exclusive of procedures): Not Applicable
Update Note
Update Note:
Using sterile technique, the PICC line was removed by myself. The tip was cut and placed in a sterile container for culture.
ED Attending Note
-
Portions of this chart may have been created with voice recognition software.� Occasional wrong word or��sound alike� substitutions may have occurred due to the inherent limitations of voice recognition software.
Discharge Plan
Departure
Patient Disposition: Home (Routine Discharge)
Date of Disposition: 07/22/25
Time of Disposition: 02:41
Patient with high blood pressure during this ER visit?: Yes
Condition: Good
Discharge Problem:
PIC line (peripherally inserted central catheter) removal
Instructions: Peripherally inserted central catheter (PICC) removal
Prescriptions:
No Action
levothyroxine [Synthroid] 100 mcg Tablet
100 mcg PO DAILY
naratriptan 2.5 mg Tablet
2.5 mg PO DAILYPRN PRN (Reason: migraine)
rosuvastatin 5 mg Tablet
5 mg PO HS
pramipexole 0.375 mg tablet extended release 24 hr
0.375 mg PO DAILY
potassium chloride 20 mEq Tablet,Er Particles/Crystals
20 meq PO DAILYPRN PRN (Reason: take with Lasix)
leflunomide [Arava] 20 mg Tablet
20 mg PO DAILY
furosemide 80 mg tablet
80 mg PO DAILYPRN PRN (Reason: swelling)
sennosides [senna] 8.6 mg Tablet
8.6 mg PO BIDPRN PRN (Reason: constipation)
polyethylene glycol 3350 [Miralax] 17 gram Powder In Packet
17 g PO BIDPRN PRN (Reason: constipation)
melatonin 3 mg Tablet
6 mg PO HS
vancomycin 1,000 mg recon soln
1 g IV BID
zinc oxide 20 % Ointment
1 applic TOPICAL DAILY
rifampin 300 mg Capsule
300 mg PO BID
ascorbic acid (vitamin C) [Vitamin C] 500 mg Tablet
500 mg PO BID
bisacodyl 10 mg Suppository
10 mg NE DAILYPRN PRN (Reason: constipation)
gabapentin 300 mg Capsule
300 mg PO TID
levofloxacin 750 mg Tablet
750 mg PO NOON
chlorhexidine gluconate 4 % Liquid
1 applic TOPICAL DAILY
calcium carbonate 260 mg calcium (648 mg) Tablet
260 mg PO DAILY
Dakin's Solution 0.125 % Solution
1 applic TOPICAL BID
cholecalciferol (vitamin D3) [Vitamin D3] 25 mcg (1,000 unit) Tablet
25 mcg PO DAILY
oxycodone [OxyContin] 20 mg Tablet,Oral Only,Ext.Rel.12 Hr
20 mg PO BID
balsam erik-castor oil [Venelex] Ointment
1 applic TOPICAL BID
aspirin 325 mg Capsule
325 mg PO DAILY
acetaminophen [Tylenol] 325 mg Tablet
975 mg PO TID
Referrals:
Mynor Méndez Jr., DO [Family Provider, Internal Medicine]
Activity Restrictions/Additional Instructions:
As discussed, it is very important that you return to the hospital to have your PICC line replaced. This is vital for your antibiotic infusion.
Thank You for choosing [facility].
It was a pleasure meeting you and taking part in your care. We hope for your continued healing and wellness.
Please read discharge instructions in their entirety. However, they are for general education and may not describe your exact diagnosis at discharge. Information on your ER visit and medical conditions were discussed with you along with appropriate
follow up information...
If indicated, please take your medications as instructed and indicated on discharge paperwork.
Please schedule a follow up appointment as directed. Call to schedule an appointment
Please return to the emergency department with ANY change in, persisting, or worsening of symptoms. If any of your symptoms do not improve, or persist, or become more severe within 6-12 hours, please return to the emergency department for further
care.
Please return to the emergency department if you develop a headache, neck pain/stiffness, fever greater than 100.4F, chest pain, shortness of breath, persistent nausea, vomiting, slurred speech, difficulty walking, numbness/tingling, weakness, signs
of infection or any other symptoms that are worrisome to you.
If you have any questions or concerns please do not hesitate to call the Hospital at or E-mail me directly at [email or web address]
.
Interventions
Interventions:
*Risk Screen - Suicide Last Done: 07/21/25 21:09
*General Assessment Last Done: 07/21/25 21:09
*Neglect/Abuse Screening Last Done: 07/21/25 21:09
*ED- Fall Risk Assessment Last Done: 07/22/25 01:05
*ED COVID-19 Vaccine History Last Done: 07/21/25 21:09
*Nursing Disposition Last Done: 07/22/25 03:03
OC-Fyaplc-Aipwjugzrl Assessment Last Done: 07/22/25 01:04
ED-Female Genitourinary Assessment Last Done: 07/22/25 01:04
Discharge Date and Time
Discharge Date/Time: 07/22/25 02:55
Print Language: MONGOLIAN
[2025-07-22 03:03] VITALS: BP 121/61
== END 2025-07-22 02:55 | disposition home or self-care (01) ==
LOC: EMR 21:02
PROVIDERS: Emergency Medicine; EMERGENCY PHYSICIAN Student in an Organized Health Care Education/Training Program; FAMILY PHYSICIAN Family Medicine
DX: Z45.2 Encounter for adjustment and management of vascular access device (principal); Z96.669 Presence of unspecified artificial ankle joint; I10 Essential (primary) hypertension; E03.9 Hypothyroidism, unspecified; M06.9 Rheumatoid arthritis, unspecified; Z82.49 Family history of ischemic heart disease and other diseases of the circulatory system
CPT/HCPCS: 99284; 71046; 80053; 85025; 87084

== ENCOUNTER 2025-07-22 08:18 | Emergency (ER) | payer OTHER, SELFPAY ==
[2025-07-22 08:24] VITALS: BP 150/69
--- NOTE | 2025-07-22 08:43 | ED.GENMED ---
History of Present Illness
General
Chief Complaint: Catheter/Tube Problem
Source: patient
Exam Limitations: none
Time Seen by Provider: 07/22/25 08:35
History of Present Illness
History of Present Illness:
Patient returns for PICC line placement. She has had an ongoing PICC line for IV antibiotics. It was evaluated by the visiting nurse and felt to be infected and was removed yesterday. She returns for PICC line placement. No fever chills or any
other acute complaints.
Past History
Past History
ED Past Medical History: Arrthythmia, HTN, Hypothyroidism and Other (RA, colitis)
ED Past Surgical History: Bowel resection, Cardiac, Cholecystectomy, Gynecological, Orthopedic (multiple jjoint replacements) and Other
Social History
Tobacco: Non-smoker
Alcohol: Daily
Drug: None
Personal:
Living: with family
Employment: Retired
Family History
Family History: Hypertension
Phy Exam
Physical Exam
Physical Exam:
GENERAL: Alert. NAD
CARDIAC: Regular rate and rhythm
LUNGS: No respiratory distress
NEUROLOGICAL: Alert and oriented , grossly non-focal
SKIN: Warm and dry, bandage to the right arm but no surrounding cellulitis warmth or erythema
MUSCULOSKELETAL: No edema,no deformity.Good color. Right arm appears grossly normal. No obvious edema or swelling to the arm. Good distal pulse
PSYCH: Normal and appropriate interaction.
Course
Orders/Labs/Results
Orders:
Orders
07/22/25 10:25
Midline IV As Directed
Vital Signs
Initial and Last Documented VS:
Initial Vital Signs
Temp Pulse Resp BP Pulse Ox
98.3 F 78 18 150/69 95
07/22/25 08:24 07/22/25 08:24 07/22/25 08:24 07/22/25 08:24 07/22/25 08:24
Last Documented Vital Signs
Temp Pulse Resp BP Pulse Ox
98.3 F 78 18 150/69 95
07/22/25 08:24 07/22/25 08:24 07/22/25 08:24 07/22/25 08:24 07/22/25 08:44
MDM/Problems Addressed
Differential Diagnosis Includes:
Patient presents for PICC line placement. Medically stable.
*Pulse Oximetry
SaO2: 95
Oxygen Mode of Delivery: Room air
Patient hypoxic: no (95)
*Critical Care Note
Total Time (30-74mins, 75-104mins- exclusive of procedures): Not Applicable
Update Note
Update Note:
Midline was placed. Medications were confirmed to go okay through midline. Patient discharged to follow-up
ED Attending Note
-
Portions of this chart may have been created with voice recognition software.� Occasional wrong word or��sound alike� substitutions may have occurred due to the inherent limitations of voice recognition software.
Discharge Plan
Departure
Patient Disposition: Home (Routine Discharge)
Date of Disposition: 07/22/25
Time of Disposition: 12:56
Patient with high blood pressure during this ER visit?: Yes
Discharge Problem:
Midline placement, For IV antibiotics
Prescriptions:
No Action
levothyroxine [Synthroid] 100 mcg Tablet
100 mcg PO DAILY
naratriptan 2.5 mg Tablet
2.5 mg PO DAILYPRN PRN (Reason: migraine)
rosuvastatin 5 mg Tablet
5 mg PO HS
pramipexole 0.375 mg tablet extended release 24 hr
0.375 mg PO DAILY
potassium chloride 20 mEq Tablet,Er Particles/Crystals
20 meq PO DAILYPRN PRN (Reason: take with Lasix)
leflunomide [Arava] 20 mg Tablet
20 mg PO DAILY
furosemide 80 mg tablet
80 mg PO DAILYPRN PRN (Reason: swelling)
sennosides [senna] 8.6 mg Tablet
8.6 mg PO BIDPRN PRN (Reason: constipation)
polyethylene glycol 3350 [Miralax] 17 gram Powder In Packet
17 g PO BIDPRN PRN (Reason: constipation)
melatonin 3 mg Tablet
6 mg PO HS
vancomycin 1,000 mg recon soln
1 g IV BID
zinc oxide 20 % Ointment
1 applic TOPICAL DAILY
rifampin 300 mg Capsule
300 mg PO BID
ascorbic acid (vitamin C) [Vitamin C] 500 mg Tablet
500 mg PO BID
bisacodyl 10 mg Suppository
10 mg [place] DAILYPRN PRN (Reason: constipation)
gabapentin 300 mg Capsule
300 mg PO TID
levofloxacin 750 mg Tablet
750 mg PO NOON
chlorhexidine gluconate 4 % Liquid
1 applic TOPICAL DAILY
calcium carbonate 260 mg calcium (648 mg) Tablet
260 mg PO DAILY
Dakin's Solution 0.125 % Solution
1 applic TOPICAL BID
cholecalciferol (vitamin D3) [Vitamin D3] 25 mcg (1,000 unit) Tablet
25 mcg PO DAILY
oxycodone [OxyContin] 20 mg Tablet,Oral Only,Ext.Rel.12 Hr
20 mg PO BID
balsam erik-castor oil [Venelex] Ointment
1 applic TOPICAL BID
aspirin 325 mg Capsule
325 mg PO DAILY
acetaminophen [Tylenol] 325 mg Tablet
975 mg PO TID
Referrals:
Mynor Méndez Jr., DO [Family Provider, Internal Medicine]
Interventions
Interventions:
*Risk Screen - Suicide Last Done: 07/22/25 08:24
*General Assessment Last Done: 07/22/25 08:24
*Neglect/Abuse Screening Last Done: 07/22/25 08:24
*Nursing Disposition Last Done: 07/22/25 12:45
Discharge Date and Time
Print Language: DJIBOUTIAN
--- NOTE | 2025-07-22 10:49 | VATNOTE ---
Pt returned to ER for PICC line placement. After this VAT RN spoke to pt, she is only on ABX until 08/01, 10 more days. Suggestion made to place a midline. Phone number ([phone]) for [place] [facility] given to this VAT RN. Phone call placed
and return call received from [employer] accounts manager RN. Situation explained to Vin RN and she agreed a midline is ok. Vin RN stated that the ABX that this pt is on, daptomycin and zerbaxa, are ok to be given through a midline. Midline to be placed.
== END 2025-07-22 13:01 | disposition home or self-care (01) ==
LOC: EMR 08:18
PROVIDERS: EMERGENCY PHYSICIAN Emergency Medicine; FAMILY PHYSICIAN Family Medicine
DX: Z45.2 Encounter for adjustment and management of vascular access device (principal); E03.9 Hypothyroidism, unspecified; I10 Essential (primary) hypertension; Z90.49 Acquired absence of other specified parts of digestive tract
CPT/HCPCS: 36569; 99284

== ENCOUNTER 2025-08-04 15:19 | Inpatient (IN) | payer OTHER, SELFPAY ==
[2025-08-04] VITALS (9 sets, daily range): BP systolic 124–151; BP diastolic 62–85; BMI 27.1; BMI 26.3
--- NOTE | 2025-08-04 11:59 | ED.GENMED ---
History of Present Illness
General
Chief Complaint: Abdominal Symptoms
Time Seen by Provider: 08/04/25 11:42
History of Present Illness
History of Present Illness:
See MDM
Past History
Past History
ED Past Medical History: Arrthythmia, HTN, Hypothyroidism and Other (RA, colitis)
ED Past Surgical History: Bowel resection, Cardiac, Cholecystectomy, Gynecological, Orthopedic (multiple jjoint replacements) and Other
Social History
Tobacco: Non-smoker
Alcohol: Daily
Drug: None
Personal:
Living: with family
Employment: Retired
Family History
Family History: Hypertension
Phy Exam
Physical Exam
Physical Exam:
See MDM
Course
Orders/Labs/Results
Orders:
Orders
08/04/25 11:55
CT Abd/pel W Iv And Oral Contr Urgent
Comment: hx SBO. Will not tolerate all PO contrast
Reason For Exam: abd pain
0.9% Sodium Chloride 1000 ml [Nss] 1,000 ml IV BOLUS
HYDROmorphone [Dilaudid] 1 mg IV NOW STA
Iohexol [Omnipaque] See Protocol PO NOW STA
Ondansetron Injectable [Zofran] 4 mg IV NOW STA
08/04/25 11:57
Electrocardiogram (*1) Urgent
Reason for Study: PreOp
EKG- Treatment ONCE
08/04/25 12:20
Type+Screen Urgent
Complete Blood Count/With Diff Urgent
Comprehensive Metabolic Panel Urgent
Lactic Acid Q4H
Comment: CANCEL 2nd LACTIC ACID IF 1st LACTIC ACID IS LESS THAN 2
PTT Urgent
Prothrombin Time Urgent
08/04/25 13:54
HYDROmorphone [Dilaudid] 1 mg IV NOW STA
08/04/25 13:56
WOUND/OSTOMY CONSULT Routine
Reason for Consult: RLE wound
08/04/25 14:21
Gastrointestinal Tubes As Directed
Type: Paulino sump
To suction?: Yes
Type of suction: Low intermittent
Directions to clamp NG tube: clamp for ambulation
Irrigate tube?: Yes
Irrigant: Tap Water
Frequency: Q4H
Amount in mls: 30
Irrigation Directions: Irrigate Q4H and PRN
Comment: 16fr [place] sump
08/04/25 16:00
Lactic Acid Q4H
Comment: CANCEL 2nd LACTIC ACID IF 1st LACTIC ACID IS LESS THAN 2
Abnormal Lab Results
08/04/25
12:20
RBC 3.87 L 10^6/uL
(4.20-5.40)
Hgb 10.5 L g/dL
(12.0-16.0)
Hct 33.7 L %
(37.0-47.0)
MCHC 31.2 L g/dL
(33.0-37.0)
RDW 16.5 H %
(11.5-14.5)
Plt Count 448 H 10^3/uL
(130-400)
Abs Immat Gran (auto) 0.1 H 10^3/uL
(0-0.05)
Absolute Neuts (auto) 7.8 H 10^3/uL
(1.4-6.5)
Absolute Monos (auto) 0.7 H 10^3/uL
(0.1-0.6)
Immature Gran % 0.7 H %
(0-0.5)
Neutrophils % 77.0 H %
(42.2-75.2)
Lymphocytes % 12.3 L %
(20.5-51.1)
BUN 40 H mg/dl
(7-17)
Glucose 112 H mg/dl
(70-99)
Calcium 11.4 H mg/dl
(8.4-10.2)
AST 40 H U/L
(14-36)
ALT 37 H U/L
(0-35)
Total Protein 6.2 L g/dl
(6.3-8.2)
08/04/25 12:20
08/04/25 12:20
Vital Signs
Initial and Last Documented VS:
Initial Vital Signs
Temp Pulse Resp BP Pulse Ox
97.7 F 95 16 144/85 98
08/04/25 11:24 08/04/25 11:24 08/04/25 11:24 08/04/25 11:24 08/04/25 11:24
Last Documented Vital Signs
Temp Pulse Resp BP Pulse Ox
97.7 F 95 16 124/62 97
08/04/25 11:24 08/04/25 11:24 08/04/25 11:24 08/04/25 13:00 08/04/25 13:15
MDM/Problems Addressed
Differential Diagnosis Includes:
Note:
CHIEF COMPLAINT(S)
Possible bowel obstruction.
HISTORY OF PRESENT ILLNESS
The patient is a 75-year-old female who presents with concerns of a bowel obstruction. She has a history of prior intestinal resection after her small intestines wrapped around scar tissue, leading to the removal of 51 inches of bowel. The patient
reports vomiting bile today and has not been eating much. She describes her abdomen as hard and has not been passing gas regularly, only passing a small amount yesterday. The patient feels nauseous and is experiencing pain, which has persisted
despite prior attempts to manage it at home. She also reports a recent history of an ankle replacement that resulted in complications, leading to approximately eight additional surgeries including ingrafts and flaps. The patient noted healing
difficulties over the wound, which looks concerning again after initially responding well.
PAST MEDICAL AND SURIGICAL HISTORY
- Prior bowel resection due to small intestine wrapping around scar tissue.
- Recent ankle replacement on January 02 complicated by poor healing, leading to eight additional surgeries and the use of leeches and wound vac therapy for graft management.
ALLERGIES
The patient reports no known drug allergies.
MEDICATIONS
The patient mentioned being on narcotic medication for pain management, but specific names or dosages were not provided.
REVIEW OF SYSTEMS
- Gastrointestinal: Vomiting bile, decreased oral intake, abdominal hardness, decreased gas passage.
- Neurological: Patient denies loss of consciousness.
- Musculoskeletal: Reports recent ankle replacement with subsequent surgical complications.
- Dermatological: Concerns over wound healing on the ankle.
PHYSICAL EXAM
General: Mildly uncomfortable
Skin: Warm, dry.
Head: Normocephalic, atraumatic
Neck: Appears supple, trachea midline.
Eyes, Ears, Nose, Mouth, and Throat: Oral mucosa moist.
Cardiovascular: No signs of cyanosis
Respiratory: Respirations are non-labored.
Abdomen: Distended and firm
Musculoskeletal: Right ankle is wrapped and in boot
Neurological: No focal neurological deficit observed.
Psychiatric: Cooperative, appropriate mood and affect.
PLAN
- Administer intravenous fluids and antiemetic medications for nausea.
- Administer pain medication, Duloxetine, with monitoring due to the patients existing narcotic use.
- Perform a computed tomography (CT) scan to assess the possibility of bowel obstruction.
- Consult with a surgeon regarding possible surgical intervention based on the CT scan results.
DIFFERENTIAL DIAGNOSIS
The Differential Diagnosis includes, in no particular order and is not limited to:
1. Bowel obstruction
2. Intestinal adhesions
3. Ankle wound infection
4. Ankle wound dehiscence
5. Gastroenteritis
6. Ileus
7. Peritoneal inflammation
8. Diverticulitis
9. Volvulus
10. Gastrointestinal ischemia
SUMMARY OF ENCOUNTER
The patient, a 75-year-old female, presented to the emergency department with symptoms indicative of a bowel obstruction, including vomiting bile, abdominal hardness, and decreased passage of gas. Her history includes a prior bowel resection and
multiple surgeries following an ankle replacement. A CT scan confirmed a small bowel obstruction. General surgery was consulted, and the decision was made to place a nasogastric (NG) tube. The patient showed no signs of bowel ischemia as indicated
by lactic acid levels within normal limits.
DISPOSITION
The patient was admitted for further medical management and evaluation regarding potential surgical intervention.
ASSESSMENT
Small bowel obstruction, likely due to adhesions from previous surgery.
PLAN
1. NG tube placement for decompression.
2. Admission for continued monitoring and potential surgical intervention, depending on response to medical management.
MEDICAL DECISION MAKING
- Complexity of Data Reviewed: Chronic conditions affecting care include prior bowel resection and complications from ankle replacement. Differential diagnosis considered bowel obstruction, intestinal adhesions, and other potential gastrointestinal
issues.
- Data:
Category 1
My independent interpretation of the CT scan indicates a small bowel obstruction.
Category 3
Discussion of management with a general surgeon regarding the patients presentation and potential need for surgical intervention.
-Risk:
Given the diagnosis of a small bowel obstruction and the patients medical history, the risk of complications necessitates close monitoring and management in an inpatient setting.
DIAGNOSIS
- Small bowel obstruction (K56.60)
*Pulse Oximetry
SaO2: 98
Patient hypoxic: no
*Critical Care Note
Total Time (30-74mins, 75-104mins- exclusive of procedures): Not Applicable
ED Attending Note
-
Portions of this chart may have been created with voice recognition software.� Occasional wrong word or��sound alike� substitutions may have occurred due to the inherent limitations of voice recognition software.
Discharge Plan
Departure
Patient Disposition: Admit
Date of Disposition: 08/04/25
Time of Disposition: 14:27
Admit to: Med/Surg
Presentation/result/management discussed w/ accepting MD/DO: Hospitalist
Discharge Problem:
SBO (small bowel obstruction)
Prescriptions:
No Action
levothyroxine [Synthroid] 100 mcg Tablet
100 mcg PO DAILY
naratriptan 2.5 mg Tablet
2.5 mg PO DAILYPRN PRN (Reason: migraine)
rosuvastatin 5 mg Tablet
5 mg PO HS
pramipexole 0.375 mg tablet extended release 24 hr
0.375 mg PO DAILY
potassium chloride 20 mEq Tablet,Er Particles/Crystals
20 meq PO DAILYPRN PRN (Reason: take with Lasix)
leflunomide [Arava] 20 mg Tablet
20 mg PO DAILY
furosemide 80 mg tablet
80 mg PO DAILYPRN PRN (Reason: swelling)
sennosides [senna] 8.6 mg Tablet
8.6 mg PO BIDPRN PRN (Reason: constipation)
polyethylene glycol 3350 [Miralax] 17 gram Powder In Packet
17 g PO BIDPRN PRN (Reason: constipation)
melatonin 3 mg Tablet
6 mg PO HS
vancomycin 1,000 mg recon soln
1 g IV BID
zinc oxide 20 % Ointment
1 applic TOPICAL DAILY
rifampin 300 mg Capsule
300 mg PO BID
ascorbic acid (vitamin C) [Vitamin C] 500 mg Tablet
500 mg PO BID
bisacodyl 10 mg Suppository
10 mg SD DAILYPRN PRN (Reason: constipation)
gabapentin 300 mg Capsule
300 mg PO TID
levofloxacin 750 mg Tablet
750 mg PO NOON
chlorhexidine gluconate 4 % Liquid
1 applic TOPICAL DAILY
calcium carbonate 260 mg calcium (648 mg) Tablet
260 mg PO DAILY
Dakin's Solution 0.125 % Solution
1 applic TOPICAL BID
cholecalciferol (vitamin D3) [Vitamin D3] 25 mcg (1,000 unit) Tablet
25 mcg PO DAILY
oxycodone [OxyContin] 20 mg Tablet,Oral Only,Ext.Rel.12 Hr
20 mg PO BID
balsam erik-castor oil [Venelex] Ointment
1 applic TOPICAL BID
aspirin 325 mg Capsule
325 mg PO DAILY
acetaminophen [Tylenol] 325 mg Tablet
975 mg PO TID
Referrals:
Mynor Méndez Jr., DO [Family Provider, Internal Medicine]
Interventions
Interventions:
*Risk Screen - Suicide Last Done: 08/04/25 11:23
*Neglect/Abuse Screening Last Done: 08/04/25 11:23
Discharge Date and Time
Print Language: MACEDONIAN
[2025-08-04] MEDS: OMNIPAQUE 50 ML PO (12:05)
[2025-08-04] MEDS: ZOFRAN 4 MG IV (12:16)
[2025-08-04] MEDS: DILAUDID 1 MG IV ×4 (12:17→23:39)
[2025-08-04] MEDS: NSS 1000 IV ×2 (12:18→18:35)
[2025-08-04 12:33] LABS: Hematocrit 33.7 % (37.0-47.0); Hemoglobin 10.5 g/dL (12.0-16.0); Mean Corp Hgb Conc. 31.2 g/dL (33.0-37.0); Mean Corpuscular Volume 87.1 fL (81.0-99.0); Nucleated Red Blood Cells % 0 %; Platelet Count 448 10^3/uL (130-400); Red Cell Dist. Width 16.5 % (11.5-14.5)
[2025-08-04 12:42] LABS: INR 0.99; PT 13.4 Sec (11.4-14.6)
[2025-08-04 12:43] LABS: APTT 27.0 Sec (23.4-35.0)
[2025-08-04 12:45] LABS: ALT (SGPT) 37 U/L (0-35); AST (SGOT) 40 U/L (14-36); Albumin 4.1 g/dl (3.5-5.0); Alkaline Phosphatase 110 U/L (38-126); Blood Urea Nitrogen 40 mg/dl (7-17); Calcium 11.4 mg/dl (8.4-10.2); Carbon Dioxide 27 mmol/L (22-30); Chloride 103 mmol/L (98-107); Glucose 112 mg/dl (70-99); Potassium 4.5 mmol/L (3.5-5.1); Sodium 138 mmol/L (135-145); Total Protein 6.2 g/dl (6.3-8.2); eGFR > 60.00
--- NOTE | 2025-08-04 13:59 | CON.GS ---
Addendum entered and electronically signed by Gama Ulloa MD 08/04/25 16:18:
I saw and examined the patient independently.
The Kiln Mechanic's note was reviewed and I agree with the note, assessment and plan except where noted below.
Comment: This is a 73-year-old female with a history of a laparoscopic Val, exploratory laparotomy with extensive small bowel resection and a subsequent SBO, incisional hernia repair with mesh and multiple orthopedic surgeries who presents with
nausea vomiting abdominal pain with bilious emesis in the setting of a right lower extremity wound. CT abdomen pelvis reviewed which shows significant stool burden as well as a high-grade small bowel obstruction with a dilated stomach.
Will manage nonoperatively for now n.p.o., IV fluids, agree with NG tube placement for scopic decompression.
We will follow along with you.
I spent 75 minutes in total for the care of this patient today including direct patient care and counseling, reviewing labs, imaging, coordination of care, as well as documentation.
Original Note:
Consultation
-
Date/Time Consultation Performed: 08/04/25 1305
Requesting Provider: Mateo
Reason for Consultation: sbo
Medical History
-
Chief Complaint: nausea/vomiting
History of Present Illness:
Ms Tijerina is a 73 yo female with a h/o RA (off biologics currently), justus, ex lap with SBR (130cm) [address] Valenzuela for an SBO, Incisional hernia repair with mesh 2016, BL TSA's, TOMMIE's, and TKRs with revisions, Right ankle replacement in
December complicated by nonhealing wound/infection with 8 subsequent surgeries for washouts, grafts and flaps who recently completed IV ABX at home this past week and was transitioned to oral doxycycline with wound care following at home for
dressing changes and planned vac who developed nausea with vomiting over the past few days causing her to present for evaluation. 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 Her
brother in law recently and she was to attend his tomorrow and was hoping to be able to recover at home but given ongoing and worsening symptoms presents today for evaluation. She notes she has note been passing flatus today but
did pass a little yesterday. She has noted increasing distention and abdominal pain. She denies fevers or chills.
Past Medical History
Past Medical History: Hypercholesterolemia, Hypothyroidism and Other (RA, Raynaud's, RLS, chronic opioid use, lymphedema LLE)
Past Surgical History: Bowel Resection (Ex lap with SBR of 130cm small bowel 2013 (luisa)), Cholecystectomy, Hernia Repair (Incisional hernia repair with mesh 2017 (Luisa)), Orthopedic (BL THRs, TKRs, TSAs with revisions, Spinal surgery with
hardware, R foot ORIF followed by replacement earlier this year complicated by infection and being followed by limb salavage team and Vin Haywood) and Other (skin grafting/flaps, left greater saphenous vein abalation)
Social History
Tobacco: Non-Smoker
Alcohol: Daily
Personal:
Living: With Family
Family History
Family History: Reviewed & Not Pertinent
Allergies / Home Medications
Allergy/AdvReac Type Severity Reaction Status Date / Time
metoprolol Allergy Rash Verified 08/04/25 11:27
�Medication �Instructions �Recorded �Confirmed �Type
levothyroxine 100 mcg tablet 100 mcg PO DAILY Thyroid 04/16/24 02/27/25 History
(Synthroid)
naratriptan 2.5 mg tablet 2.5 mg PO DAILYPRN PRN migraine 04/16/24 02/27/25 History
potassium chloride 20 mEq 20 meq PO DAILYPRN PRN take with 04/16/24 02/27/25 History
tablet,extended release(part/cryst) Lasix
pramipexole 0.375 mg 0.375 mg PO DAILY Anti-Parkinson 04/16/24 02/27/25 History
tablet,extended release 24 hr Agent
rosuvastatin 5 mg tablet 5 mg PO HS High Cholesterol 04/16/24 02/27/25 History
furosemide 80 mg tablet 80 mg PO DAILYPRN PRN swelling 11/21/24 02/27/25 History
leflunomide 20 mg tablet (Arava) 20 mg PO DAILY 11/21/24 02/27/25 History
acetaminophen 325 mg tablet 975 mg PO TID 02/27/25 02/27/25 History
(Tylenol)
ascorbic acid (vitamin C) 500 mg 500 mg PO BID 02/27/25 02/27/25 History
tablet (Vitamin C)
aspirin 325 mg capsule 325 mg PO DAILY 02/27/25 02/27/25 History
balsam erik-castor oil topical 1 applic topical BID 02/27/25 02/27/25 History
ointment (Venelex topical ointment)
bisacodyl 10 mg rectal suppository 10 mg ND DAILYPRN PRN constipation 02/27/25 02/27/25 History
calcium carbonate 260 mg PO DAILY 02/27/25 02/27/25 History
chlorhexidine gluconate 4 % 1 applic topical DAILY 02/27/25 02/27/25 History
topical liquid
cholecalciferol (vitamin D3) 25 25 mcg PO DAILY 02/27/25 02/27/25 History
mcg (1,000 unit) tablet (Vitamin
D3)
gabapentin 300 mg capsule 300 mg PO TID 02/27/25 02/27/25 History
levofloxacin 750 mg tablet 750 mg PO NOON 02/27/25 02/27/25 History
melatonin 3 mg tablet 6 mg PO HS 02/27/25 02/27/25 History
oxycodone 20 mg tablet,crush 20 mg PO BID 02/27/25 02/27/25 History
resistant,extended release 12 hr
(OxyContin)
polyethylene glycol 3350 17 gram 17 g PO BIDPRN PRN constipation 02/27/25 02/27/25 History
oral powder packet (Miralax)
rifampin 300 mg capsule 300 mg PO BID 02/27/25 02/27/25 History
sennosides 8.6 mg tablet (senna) 8.6 mg PO BIDPRN PRN constipation 02/27/25 02/27/25 History
sodium hypochlorite 0.125 % 1 applic topical BID 02/27/25 02/27/25 History
solution (Dakin's Solution)
vancomycin 1,000 mg intravenous 1 g IV BID 02/27/25 02/27/25 History
injection
zinc oxide 20 % topical ointment 1 applic topical DAILY 02/27/25 02/27/25 History
Review of Systems
-
History Source: Patient
All other systems: Negative unless noted
A 10 point review of systems was completed, and was negative except as per HPI.
Physical Exam
Vital Signs
Temp Pulse Resp BP Pulse Ox
97.7 F 95 16 124/62 97
08/04/25 11:24 08/04/25 11:24 08/04/25 11:24 08/04/25 13:00 08/04/25 13:15
08/03/25 08/04/25 08/05/25
06:59 06:59 06:59
Actual Weight 74 kg
Body Mass Index (BMI) 27.1
Lab Results
08/04/25 12:20
08/04/25 12:20
WBC 10.1 10^3/uL (4.8-10.8) 08/04/25 12:20
Hgb 10.5 g/dL (12.0-16.0) L 08/04/25 12:20
Hct 33.7 % (37.0-47.0) L 08/04/25 12:20
Plt Count 448 10^3/uL (130-400) H 08/04/25 12:20
Abs Immat Gran (auto) 0.1 10^3/uL (0-0.05) H 08/04/25 12:20
Neutrophils % 77.0 % (42.2-75.2) H 08/04/25 12:20
Physical Exam
General: Well Developed and Well Nourished
HEENT: Normocephalic and Moist Mucous Membranes
Respiratory: Non Labored Respirations
GI: Soft, Tender (mild/generalized) and Distended
Skin: Warm and Dry
Neuro: Awake, Alert and AO x 3
Psych: Calm and Other (tearful)
Data Reviewed
-
CT Scan: Image Personally Visualized and interpreted and Discussed with Physician
Labs: Labs Reviewed by me, Discussed with Physician and Discussed with Patient
Old Records: Reviewed
Assessment / Plan
-
Ms Tijerina is a 73 yo female with a h/o RA (off biologics currently), justus, ex lap with SBR (130cm) [address] Valenzuela for an SBO, Incisional hernia repair with mesh 2016 (Luisa), BL TSA's, TOMMIE's, and TKRs with revisions, Right ankle
replacement in December complicated by nonhealing wound/infection with 8 subsequent surgeries for washouts, grafts and flaps who recently completed IV ABX at home this past week and was transitioned to oral doxycycline with wound care following at
home for dressing changes and eventual planned wound vac who developed nausea with vomiting over the past few days, passing minimal flatus causing her to present for evaluation. Distention present on exam. CT imaging reviewed consistent with SBO
with SB dilatation present, no evidence of bowel threat of compromise. Afebrile. VSS. No leukocytosis.
Plan:
Would admit to hospitalist service
Would benefit from NGT for decompression
Keep NPO except for ice chips for comfort
Wound care consulted to follow RLE wounds
No plans for emergent surgery, but may require surgery this admission if no improvement with bowel rest and decompression
--- NOTE | 2025-08-04 14:47 | HPS.HSE ---
Family Physician
-
Family Physician: Mynor Méndez Jr.
Chief Complaint
-
abdominal pain
History of Present Illness
75-year-old female past medical history of atrial tachycardia, PACs, SVT, hypertension, chronic venous insufficiency, chronic pain with opiate dependence, hypothyroidism, hyperlipidemia, rheumatoid arthritis, presenting with abdominal pain for the
past 4 days. Pain occurs across her lower abdomen. She has vomiting. She had fever up to 101.9 yesterday. She has not had a proper bowel movement in 3 to 4 days.
Patient has a history of cholecystectomy and hysterectomy in the distant past. She had a small bowel obstruction in 2013 requiring 51 inches of bowel resection. She had a second small bowel obstruction 5 years afterwards which was managed
conservatively.
Patient had right ankle replacement due to rheumatoid arthritis in December at [facility] which was complicated by severe postoperative infection with MRSA positive culture status post washout and subsequent skin grafts most recently in
May. She did not have hardware removed but did have the plastic removed. She has been on IV antibiotics until 2 days ago when she was transition to doxycycline to be continued for 6 months.
She is supposed to have wound VAC placed by her visiting nurse when the wound VAC is delivered to her home. She has an appointment with the physician next week.
She denies smoking. Drinks alcohol occasionally.
Medical History
Past Medical History
Past Medical History: Reports Other (atrial tachycardia, PACs, SVT, hypertension, chronic venous insufficiency, chronic pain with opiate dependence, hypothyroidism, hyperlipidemia, rheumatoid arthritis)
Past Surgical History: Reports Other (Bowel Resection (Ex lap with SBR of 130cm small bowel 2013 (nicolas)), Cholecystectomy, Hernia Repair (Incisional hernia repair with mesh 2016 (Nicolas)), Orthopedic (BL THRs, TKRs, TSAs with revisions, Spinal
surgery with hardware, R foot ORIF followed by replacement earlier this year complicated by )
Social History
Tobacco: Non-smoker
Alcohol: Occasional
Drug: None
Family History
Family History: Not pertinent
Allergies / Home Medications
Allergies reflects when Allergies were last updated in [facility].
Home Medications with original date entered in [facility]
Allergy/Medication List:
Allergies
Allergy/AdvReac Type Severity Reaction Status Date / Time
metoprolol Allergy Rash Verified 08/04/25 11:27
Home Medications
levothyroxine 100 mcg tablet (Synthroid) 100 mcg PO DAILY Thyroid 04/16/24
naratriptan 2.5 mg tablet 2.5 mg PO DAILYPRN PRN migraine 04/16/24
potassium chloride 20 mEq tablet,extended release(part/cryst) 20 meq PO DAILYPRN PRN take with Lasix 04/16/24
pramipexole 0.375 mg tablet,extended release 24 hr 0.375 mg PO DAILY Anti-Parkinson Agent 04/16/24
rosuvastatin 5 mg tablet 5 mg PO HS High Cholesterol 04/16/24
furosemide 80 mg tablet 80 mg PO DAILYPRN PRN swelling 11/21/24
leflunomide 20 mg tablet (Arava) 20 mg PO DAILY 11/21/24
acetaminophen 325 mg tablet (Tylenol) 975 mg PO TID 02/27/25
ascorbic acid (vitamin C) 500 mg tablet (Vitamin C) 500 mg PO BID 02/27/25
aspirin 325 mg capsule 325 mg PO DAILY 02/27/25
balsam erik-castor oil topical ointment (Venelex topical ointment) 1 applic topical BID 02/27/25
bisacodyl 10 mg rectal suppository 10 mg ND DAILYPRN PRN constipation 02/27/25
calcium carbonate 260 mg PO DAILY 02/27/25
chlorhexidine gluconate 4 % topical liquid 1 applic topical DAILY 02/27/25
cholecalciferol (vitamin D3) 25 mcg (1,000 unit) tablet (Vitamin D3) 25 mcg PO DAILY 02/27/25
gabapentin 300 mg capsule 300 mg PO TID 02/27/25
levofloxacin 750 mg tablet 750 mg PO NOON 02/27/25
melatonin 3 mg tablet 6 mg PO HS 02/27/25
oxycodone 20 mg tablet,crush resistant,extended release 12 hr (OxyContin) 20 mg PO BID 02/27/25
polyethylene glycol 3350 17 gram oral powder packet (Miralax) 17 g PO BIDPRN PRN constipation 02/27/25
rifampin 300 mg capsule 300 mg PO BID 02/27/25
sennosides 8.6 mg tablet (senna) 8.6 mg PO BIDPRN PRN constipation 02/27/25
sodium hypochlorite 0.125 % solution (Dakin's Solution) 1 applic topical BID 02/27/25
vancomycin 1,000 mg intravenous injection 1 g IV BID 02/27/25
zinc oxide 20 % topical ointment 1 applic topical DAILY 02/27/25
Review of Systems
-
History Source: Patient
A 12 point ROS was completed and negative except as noted: Yes
Constitutional: Reports No Symptoms
EENT: Reports No Symptoms
Respiratory: Reports No Symptoms
Cardiac: Reports No Symptoms
Abdomen/GI: Reports See HPI
: Reports No Symptoms
Musculoskeletal: Reports No Symptoms
Skin: Reports No Symptoms
Neurological: Reports No Symptoms
Endocrine: Reports No Symptoms
Hematologic/Lymphatic: Reports No Symptoms
Psych: Reports No Symptoms
Physical Exam
Vital Signs
Vital Signs
Temp Pulse Resp BP Pulse Ox
97.7 F 95 16 124/62 97
08/04/25 11:24 08/04/25 11:24 08/04/25 11:24 08/04/25 13:00 08/04/25 13:15
Physical Exam
General: Well Developed, Well Nourished and No Apparent Distress
HEENT: NormoCephalic, Moist mucous membranes and Atraumatic
Respiratory: Clear
Cardiac: S1/S2 and Regular Rhythm; No Murmur or Rub
GI: Soft, Non Distended, Normal Bowel Sounds and Tender (diffusely ); No Organomegaly
Rectal: Deferred by Provider
Musculoskeletal: No Clubbing, No Cyanosis and No Edema
Skin: No Rash
Neuro: Nonfocal/grossly intact
Laboratory Results
-
08/04/25 12:20
08/04/25 12:20
Laboratory Results
PT 13.4 Sec (11.4-14.6) 08/04/25 12:20
INR 0.99 08/04/25 12:20
APTT 27.0 Sec (23.4-35.0) 08/04/25 12:20
Lactic Acid 0.8 mmol/L (0.7-2.0) 08/04/25 12:20
Total Bilirubin 0.6 mg/dl (0.2-1.3) 08/04/25 12:20
AST 40 U/L (14-36) H 08/04/25 12:20
ALT 37 U/L (0-35) H 08/04/25 12:20
Alkaline Phosphatase 110 U/L (38-126) 08/04/25 12:20
Data Reviewed
-
Lab Data: Labs Reviewed by me
Old Records: Reviewed
Impression/Plan
-
IMPRESSION:
PLAN:
# Recurrent small bowel obstruction likely secondary to adhesions
# History of prior small bowel obstruction complicated by bowel resection
# History of distant cholecystectomy, hysterectomy
- CT abdomen pelvis shows small bowel obstruction, transition point not clearly identified, moderate intrahepatic biliary dilatation, marked common ductal dilatation
- N.p.o.
- IV fluids
- NG tube to be placed
-Zofran, Dilaudid
- General Surgery following
Right ankle replacement complicated by severe postoperative MRSA infection status post washout and subsequent skin grafts
- Completed IV antibiotics 2 days ago, currently on doxycycline to be continued for 6 months, continue as IV
- Wound care consulted
- Supposed to have wound VAC placed by visiting nurse when wound VAC arrives at her home
- Has appointment with physician next week
- Patient with cast
Hypothyroidism
- Continue levothyroxine
Hyperlipidemia
- Continue statin when able
Rheumatoid arthritis/chronic pain
- Not on treatment for RA at this time
Chronic anemia
- Hemoglobin stable 10.5
History of atrial tachycardia/PACs/SVT
Essential hypertension
Chronic venous insufficiency
Full code
DVT prophylaxis�heparin
N.p.o.
[2025-08-04] MEDS: DILAUDID 0.5 MG IV (17:37)
[2025-08-04] MEDS: VIBRAMYCIN 260 MG IV (19:18)
[2025-08-04] MEDS: HEPARIN 5000 UNITS SC (21:18)
[2025-08-05] MEDS: DILAUDID 1 MG IV ×7 (03:16→22:40)
--- NOTE | 2025-08-05 04:03 | PTCARENOTE ---
ax3 ambulates with boot. - ng tube to liws draining green. abd pain medicated with Dilaudid. 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 see mar
[2025-08-05] MEDS: NSS 1000 IV (05:18)
[2025-08-05] MEDS: VIBRAMYCIN 260 MG IV ×2 (06:13→18:12)
[2025-08-05 07:00] VITALS: BP 113/52
--- NOTE | 2025-08-05 07:26 | W.PN.HOSP.TC ---
Today's Communication/Plan
-
#SBO
- NG tube in place
- NPO w ice chips
- Continue to monitor GI sx w conservative mgmt
- Pain mgmt dilaudid prn
- Zofran prn
- Surgery following, appreciate recs
#R foot wound
- Continue doxy 100mg IV q12h
- Wound care following, appreciate recs
- Request notes from [facility] ortho surgeon Taurus Rodriguez from last month; consider wound vac placement inpt
- Keep R foot elevated
Assessment / Plan
Assessment / Plan
Ana Tijerina is a 75yo F with a pmh notable for chronic venous insufficiency, chronic pain (w opiate dependence), RA (not currently on biologics), and recurrent SBOs who presents with n/v, abd pain, & constipation, found to have SBO, now
being managed conservatively, and non-healing ankle wound, being followed by wound care.
#SBO in s/o adhesions
#Hx recurrent SBOs
On presentation, 4 days lower abd pain/firmness, vomiting bile, low appetite, minimal flatus, no BM in 3-4 days. PSH: cholecystecomy, hysterectomy, SBO s/p 51' bowel resection (2013), SBO s/p conservative mgmt (2019). CT a/p w/wo contrast (08/04)
demonstrated SBO with SB dilatation present, no evidence of bowel threat of compromise. Afebrile, WBC wnl. Lactate wnl, low c/f ischemia. S/p IVF.
Today, pt with improved nausea s/p NG tube but with continued abd pain & tightness and no flatus/BM. AVSS.
- NG tube in place
- NPO w ice chips
- Continue to monitor GI sx w conservative mgmt
- Pain mgmt dilaudid prn
- Zofran prn
- Surgery following, appreciate recs
#Nonhealing R ankle wound
Hx R ankle replacement in s/o RA in Dec 2024 at [place], c/b MRSA post-op infection, s/p multiple OR washouts & skin grafts, most recent May 2025. Has been on IV abx until 08/03/25, transitioned to PO doxy for planned 6mo course (08/03-). Plans for
wound VAC placement by VN at home, pending delivery (was supposed to be delivered 08/04-08/05). Outpt appt next week w surgeon, last saw him 08/04.
- Continue doxy 100mg IV q12h
- Wound care following, appreciate recs
- Request notes from [facility] ortho surgeon Taurus Rodriguez from last month; consider wound vac placement inpt
- Keep R foot elevated
#Chronic:
-Atrial tachycardia, PACs, SVT - monitor HR
-HLD - rosuvastatin to be restarted once PO meds tolerable
-Hypothyroidism - levothyroxine to be restarted once PO meds tolerable
-RA - not on trt at this time
-Chronic anemia - follow hgb, stable 10.5
-Chronic venous insufficiency - compression stockings
-Restless leg syndrome - pramipexole to be restarted once PO meds tolerable
#Global
-DVT ppx: heparin
-Diet: NPO, chips
-Code: full
-Dispo: to home, pending resolution of SBO
Anticipated Discharge: > 48 hours
Subjective/Interval History
-
Date of Service: August 05, 2025
Pt intermittently tearful when talking this am, was laughing on phone prior to entry to room. States that she hasn't had any BM or passed any flatus since admission. NG tube has improved symptoms, less nauseous, less abd pain. States abdomen still
feels tight/hard and she still has pain. Began crying mid-discussion 2/2 moment of worsening abd pain. Says that pain is well-controlled by prn dilaudid.
Has been propping her R foot up on two pillows, wondering about getting wedge that she uses at home to put it up.
Objective Data
-
Labs:
Laboratory Results
08/05/25
06:00
WBC Pending
Hgb Pending
Hct Pending
Plt Count Pending
Sodium Pending
Potassium Pending
Chloride Pending
Carbon Dioxide Pending
BUN Pending
Creatinine Pending
Glucose Pending
Calcium Pending
Total Bilirubin Pending
AST Pending
ALT Pending
Alkaline Phosphatase Pending
Vital Signs:
Vital Signs
Temp Pulse Resp BP Pulse Ox
98.4 F 89 18 133/65 98
08/04/25 23:13 08/04/25 23:13 08/04/25 23:13 08/04/25 23:13 08/04/25 23:13
I&O
08/04/25 08/05/25 08/06/25
06:59 06:59 06:59
Intake Total 1700 / 1700
Output Total 1000 / 1000
Balance 700 / 700
Review of Systems
-
History Source: Patient
Constitutional: Reports No Appetite
Respiratory: Reports No Symptoms
Cardiac: Reports No Symptoms
Abdomen/GI: Reports Abdominal Pain, Constipated and Other (abdomen tight/firm)
Musculoskeletal: Reports Arthralgias
Psych: Reports Sad and Anxious
Physical Exam
-
General: Well Developed, Well Nourished and Other (emotional lability, intermittently tearful, distressed)
HEENT: Normocephalic, Atraumatic and Anicteric
Respiratory: Non Labored Respirations
Cardiac: Regular Rhythm
GI: Tender (discomfort on palpation all 4 quadrants ), Distended (abdomen firm to palpation) and Other (NG tube with green drainage)
Musculoskeletal: Other (R ankle with layers of dressing/izabela bandage in place propped up on pillows; L leg with compression stocking)
Neuro: Awake, Alert and Oriented
Psych: Anxious
Data Reviewed
-
Total Time Spent with Patient (in minutes): 15
Critical Care Time (in minutes): 40
Diagnostic Radiology: Report Reviewed by me
CT Scan: Report Reviewed by me
Labs: Labs Reviewed by me
[2025-08-05] MEDS: HEPARIN 5000 UNITS SC ×2 (08:02→20:13)
[2025-08-05 09:06] LABS: Hematocrit 30.3 % (37.0-47.0); Hemoglobin 9.3 g/dL (12.0-16.0); Mean Corp Hgb Conc. 30.7 g/dL (33.0-37.0); Mean Corpuscular Volume 89.1 fL (81.0-99.0); Nucleated Red Blood Cells % 0 %; Platelet Count 379 10^3/uL (130-400); Red Cell Dist. Width 16.6 % (11.5-14.5)
--- NOTE | 2025-08-05 09:22 | W.PN.GS2 ---
Today's Communication / Plan
-
Will continue nonoperative management of the her SBO.
N.p.o., IV fluids, NG tube to low intermittent wall suction.
Out of bed and ambulate as able.
Okay for a few ice chips, chewing gum.
General surgery will continue to follow.
Assessment / Plan
-
This is a 75-year-old female with a history of RA, cholecystectomy, exploratory laparotomy with SBR (130 cm) in [address] Valenzuela for small bowel obstruction, incisional hernia repair with mesh in 2017, multiple orthopedic surgeries who presents
with abdominal pain and bilious emesis for 2 to 3 days found to have a fairly high-grade small bowel obstruction still with no return of bowel function.
Will continue nonoperative management of the her SBO.
N.p.o., IV fluids, NG tube to low intermittent wall suction.
Out of bed and ambulate as able.
Okay for a few ice chips, chewing gum.
General surgery will continue to follow.
Time Spent
Total Time Spent with Patient (in minutes): 20
Subjective Data
-
Date of Service: August 05, 2025
Interval Events:
No acute events overnight. Slept okay. Pain Controlled. Denies Nausea/Vomiting, NG tube in place.
Objective Data
-
Intake and Output
08/04/25 08/05/25 08/06/25
06:59 06:59 06:59
Intake Total 1700 / 1700
Output Total 1000 / 1000
Balance 700 / 700
Intake:
Oral fluids 0 / 0
IV fluids (Total) 1200 / 1200
IV piggybacks 500 / 500
Output:
Gastrointestinal tube output ( 1000 / 1000
Total)
[place] Sump 1000 / 1000
Other:
Number of approximated LARGE 1
amounts of urine
Vital Signs
Temp Pulse Resp BP Pulse Ox
97.6 F 87 16 113/52 98
08/05/25 07:00 08/05/25 07:00 08/05/25 07:00 08/05/25 07:00 08/05/25 07:00
Lab Results
08/05/25 08:44
Calcium 11.4 mg/dl (8.4-10.2) H 08/04/25 12:20
Total Bilirubin 0.6 mg/dl (0.2-1.3) 08/04/25 12:20
AST 40 U/L (14-36) H 08/04/25 12:20
ALT 37 U/L (0-35) H 08/04/25 12:20
Alkaline Phosphatase 110 U/L (38-126) 08/04/25 12:20
Total Protein 6.2 g/dl (6.3-8.2) L 08/04/25 12:20
Albumin 4.1 g/dl (3.5-5.0) 08/04/25 12:20
Physical Exam
-
GENERAL/NEURO: Awake, Alert, no distress
CHEST: Unlabored breathing on RA
ABDOMEN: Soft, mildly tender, distended, NG tube with Ta green bilious output
Patient has a remy catheter: No
Patient has a central line: No
[2025-08-05 09:41] LABS: ALT (SGPT) 28 U/L (0-35); AST (SGOT) 29 U/L (14-36); Albumin 3.3 g/dl (3.5-5.0); Alkaline Phosphatase 101 U/L (38-126); Blood Urea Nitrogen 28 mg/dl (7-17); Calcium 10.6 mg/dl (8.4-10.2); Carbon Dioxide 26 mmol/L (22-30); Chloride 109 mmol/L (98-107); Estimated Creatinine Clearance 73 ml/min; Glucose 75 mg/dl (70-99); Potassium 3.8 mmol/L (3.5-5.1); Sodium 142 mmol/L (135-145); Total Protein 5.2 g/dl (6.3-8.2); eGFR > 60.00
--- NOTE | 2025-08-05 11:17 | CM ---
CM following re: discharge planning.
Reviewed pt's chart, met with pt.
Pt is a 75 year old female, admitted with primary dx of SBO. Per MD, continue nonoperative management of the her SBO. N.p.o., IV fluids, NG tube to low intermittent wall suction.
Pt expressed to me her very negative feelings regarding her current health condition, situation, prolonged hospitalization at [facility] and being 4 times at [facility] and pt expressed her severe dissatisfaction being at
[facility].
Pt reports she lives with 2SH, 1 step to enter, has 4 supportive children. Pt stated she started to use a walker, has a cane. Pt reports she is current with [facility] and pt made a very strong request she will not go to any SNFs and
she will only return back home at discharge with [facility]. CM will make a referral to [facility].
PCP: Mynor Méndez
Pharmacy: [facility]
d/C plan: per pt's strong request, home with [facility] and family support.
CM will follow with discharge plan updaters hospitalization progresses
--- NOTE | 2025-08-05 13:49 | VATNOTE ---
Peripheral IV access attempted on pt's R forearm twice. 22g and 24g needles used. Veins blew right after access. Pt requesting we not use her L arm as she is L handed and wants 'to be able to knit.' Pt very upset and crying stating that she regrets
coming in. Midline suggested to pt and pt agreeable. Midline attempted on R arm, again per pt request. Basilic vein and brachial vein both accessed but wire unable to be threaded through both vessels. Second VAT RN attempting peripheral access.
[2025-08-05 15:00] VITALS: BP 154/67
--- NOTE | 2025-08-05 15:30 | W.PN.UPDATE ---
Update Note
Progress Note Update
Called [facility] VN: [phone].
Instructions: wound vac to RLE; one large sponge over anterior graft site, connect to smaller sponge over the incision, thin strip of daptic placed on incision first (underneath sponge). Continuous suction at 125 to be changed 3x/week.
[2025-08-05] MEDS: NEUPRO 1 MG TRANSDERM (20:14)
[2025-08-05 23:18] VITALS: BP 171/80
[2025-08-05 23:30] VITALS: BP 148/72
[2025-08-06] MEDS: DILAUDID 1 MG IV ×6 (01:18→23:14)
[2025-08-06] MEDS: NSS 1000 IV ×2 (01:52→13:55)
[2025-08-06] MEDS: NSS IV (01:52)
[2025-08-06] MEDS: VIBRAMYCIN 260 MG IV ×2 (06:12→18:03)
[2025-08-06 07:20] VITALS: BP 165/78
--- NOTE | 2025-08-06 07:34 | W.PN.HOSP.TC ---
Today's Communication/Plan
-
- NG tube in place
- NPO w ice chips
- Continue to monitor GI sx w conservative mgmt
- IVF
- Pain mgmt dilaudid prn
- Zofran prn
- Surgery following, appreciate recs
- Continue doxy 100mg IV q12h
- Wound vac placement ordered�to be placed by wound care on Thursday (may need to be changed out for smaller home wound VAC by visiting nurse upon discharge)
- Wound care following, appreciate recs
- Keep R foot elevated
- Continue to monitor BP, consider adding on amlodipine if trends upwards
Assessment / Plan
Assessment / Plan
Ana Tijerina is a 75yo F with a pmh notable for chronic venous insufficiency, chronic pain (w opiate dependence), RA (not currently on biologics), and recurrent SBOs who presents with n/v, abd pain, & constipation, found to have SBO, now
being managed conservatively, and non-healing ankle wound, being followed by wound care.
#SBO in s/o adhesions
#Hx recurrent SBOs
On presentation, 4 days lower abd pain/firmness, vomiting bile, low appetite, minimal flatus, no BM in 3-4 days. PSH: cholecystecomy, hysterectomy, SBO s/p 51' bowel resection (2013), SBO s/p conservative mgmt (2019). CT a/p w/wo contrast (08/04)
demonstrated SBO with SB dilatation present, no evidence of bowel threat of compromise. Afebrile, WBC wnl. Lactate wnl, low c/f ischemia. S/p IVF.
Today, had BM, with improving abdominal pain and nausea. AVSS.
- NG tube in place
- NPO w ice chips
- Continue to monitor GI sx w conservative mgmt
- IVF
- Pain mgmt dilaudid prn
- Zofran prn
- Surgery following, appreciate recs
#Nonhealing R ankle wound
Hx R ankle replacement in s/o RA in Dec 2024 at [place], c/b MRSA post-op infection, s/p multiple OR washouts & skin grafts, most recent May 2025. Has been on IV abx until 08/03/25, transitioned to PO doxy for planned 6mo course (08/03-). Plans for
wound VAC placement by VN at home, pending delivery (was supposed to be delivered 08/04-08/05). Outpt appt next week w Dr. Rodriguez (08/10), last saw him 08/04. Wound vac instructions obtained from [facility] (08/05) - see update note.
- Continue doxy 100mg IV q12h
- Wound vac placement ordered�to be placed by wound care on Thursday (may need to be changed out for smaller home wound VAC by visiting nurse upon discharge)
- Wound care following, appreciate recs
- Keep R foot elevated
#Elevated BP
#Tachycardia
Pt denies hx of HTN, takes no antihypertensives at home. BP overnight reached peak of 171/80 > 148/72 this am. HR also elevated to 103 overnight > 96 this am. Potentially 2/2 pain, emotional agitation. Has been fluctuating. Has been getting IVF.
- Continue to monitor, consider adding on amlodipine if trends upwards
#Chronic:
-Atrial tachycardia, PACs, SVT - monitor HR
-HLD - rosuvastatin to be restarted once PO meds tolerable
-Hypothyroidism - levothyroxine to be restarted once PO meds tolerable
-RA - not on trt at this time
-Chronic anemia - follow hgb, stable 10.5
-Chronic venous insufficiency - compression stockings
-Restless leg syndrome - pramipexole to be restarted once PO meds tolerable; rotigotine 1mg patch in the meantime
#Global
-DVT ppx: heparin
-Diet: NPO, chips
-Code: full
-Dispo: to home, pending resolution of SBO
Anticipated Discharge: > 48 hours
Subjective/Interval History
-
Date of Service: August 06, 2025
Patient states that abdominal pain is improved today, as is nausea. Had a small well-formed bowel movement this morning, some flatus. Understands plan for wound care tomorrow with wound VAC. Says that her abdominal tightness has improved, but she
has noticed palpable bumps under the skin of her abdomen where the mesh was placed for her hernia repair back in 2016. This is new. No pain in right calf. Son telemed for follow-up.
Objective Data
-
Labs:
Laboratory Results
08/06/25
07:05
WBC Pending
Hgb Pending
Hct Pending
Plt Count Pending
Sodium Pending
Potassium Pending
Chloride Pending
Carbon Dioxide Pending
BUN Pending
Creatinine Pending
Glucose Pending
Calcium Pending
Total Bilirubin Pending
AST Pending
ALT Pending
Alkaline Phosphatase Pending
Vital Signs:
Vital Signs
Temp Pulse Resp BP Pulse Ox
98.4 F 96 20 148/72 99
08/05/25 23:18 08/05/25 23:30 08/05/25 23:18 08/05/25 23:30 08/05/25 23:18
I&O
08/05/25 08/06/25 08/07/25
06:59 06:59 06:59
Intake Total 1700 / 1700 1850 / 1850
Output Total 1000 / 1000 1100 / 1100
Balance 700 / 700 750 / 750
Review of Systems
-
History Source: Patient
Constitutional: Reports No Symptoms
Abdomen/GI: Reports Abdominal Pain (Improving) and Nausea (None)
Physical Exam
-
General: Well Developed, Well Nourished and Conversant
HEENT: Normocephalic and Atraumatic
Respiratory: Non Labored Respirations
Cardiac: Regular Rhythm
GI: Tender (discomfort on palpation all 4 quadrants, improved from yesterday; endorses rebound discomfort), Distended (abdomen softer to palpation than yesterday) and Other (NG tube with green drainage; palpable bumps on skin on abdomen underneath
scar from prior incisional hernia repair)
Musculoskeletal: Other (R ankle with layers of dressing/izabela bandage in place propped up on foam wedge; L leg with compression stocking)
Neuro: Awake, Alert and Oriented
Data Reviewed
-
Total Time Spent with Patient (in minutes): 15
Critical Care Time (in minutes): 30
Labs: Labs Reviewed by me
[2025-08-06] MEDS: HEPARIN 5000 UNITS SC (07:48)
[2025-08-06 07:56] LABS: Hematocrit 31.5 % (37.0-47.0); Hemoglobin 9.6 g/dL (12.0-16.0); Mean Corp Hgb Conc. 30.5 g/dL (33.0-37.0); Mean Corpuscular Volume 89.5 fL (81.0-99.0); Nucleated Red Blood Cells % 0 %; Platelet Count 430 10^3/uL (130-400); Red Cell Dist. Width 16.6 % (11.5-14.5)
[2025-08-06 08:00] LABS: ALT (SGPT) 28 U/L (0-35); AST (SGOT) 30 U/L (14-36); Albumin 3.6 g/dl (3.5-5.0); Alkaline Phosphatase 108 U/L (38-126); Blood Urea Nitrogen 20 mg/dl (7-17); Calcium 10.7 mg/dl (8.4-10.2); Carbon Dioxide 22 mmol/L (22-30); Chloride 111 mmol/L (98-107); Estimated Creatinine Clearance 73 ml/min; Glucose 62 mg/dl (70-99); Potassium 4.1 mmol/L (3.5-5.1); Sodium 144 mmol/L (135-145); Total Protein 5.4 g/dl (6.3-8.2); eGFR > 60.00
--- NOTE | 2025-08-06 10:08 | W.PN.GS2 ---
Today's Communication / Plan
-
NGT/NPO
Assessment / Plan
-
This is a 75-year-old female with a history of RA, cholecystectomy, exploratory laparotomy with SBR (130 cm) in [address] Valenzuela for small bowel obstruction, incisional hernia repair with mesh in 2017, multiple orthopedic surgeries who presents
with abdominal pain and bilious emesis for 2 to 3 days found to have a fairly high-grade small bowel obstruction.
Beginning to have improvement
+Flatus/BM this am
NGT still with high bilious outputs
Plan:
Will continue nonoperative management of the her SBO.
N.p.o., IV fluids, NG tube to low intermittent wall suction.
Out of bed and ambulate as able, PT consult placed
Wound care consulted to follow RLE, Vac was planned as an outpatient
Okay for a few ice chips, chewing gum.
VTE ppx with lovenox
General surgery will continue to follow.
Subjective Data
-
Date of Service: August 06, 2025
Pt seen and examined at bedside with Dr. Ulloa. Passed a BM today with flatus. Tearful about the care of her right foot while inpatient. Denies pain.
Objective Data
-
Intake and Output
08/05/25 08/06/25 08/07/25
06:59 06:59 06:59
Intake Total 1700 / 1700 1850 / 1850
Output Total 1000 / 1000 1100 / 1100
Balance 700 / 700 750 / 750
Intake:
Oral fluids 0 / 0
IV fluids (Total) 1200 / 1200 1700 / 1700
IV piggybacks 500 / 500
Amount instilled into GI Tube ( 150 / 150
Total)
[place] Sump 150 / 150
Output:
Gastrointestinal tube output ( 1000 / 1000 1100 / 1100
Total)
[place] Sump 1000 / 1000 1100 / 1100
Other:
Number of approximated LARGE 1
amounts of urine
How many times incontinent 2
MODERATE amount urine
Vital Signs
Temp Pulse Resp BP Pulse Ox
99.1 F 99 18 165/78 95
08/06/25 07:20 08/06/25 07:20 08/06/25 07:20 08/06/25 07:20 08/06/25 07:20
Lab Results
08/06/25 07:05
08/06/25 07:05
Calcium 10.7 mg/dl (8.4-10.2) H 08/06/25 07:05
Total Bilirubin 0.6 mg/dl (0.2-1.3) 08/06/25 07:05
AST 30 U/L (14-36) 08/06/25 07:05
ALT 28 U/L (0-35) 08/06/25 07:05
Alkaline Phosphatase 108 U/L (38-126) 08/06/25 07:05
Total Protein 5.4 g/dl (6.3-8.2) L 08/06/25 07:05
Albumin 3.6 g/dl (3.5-5.0) 08/06/25 07:05
Physical Exam
-
GENERAL/NEURO: Awake, Alert, no distress
CHEST: Unlabored breathing on RA
ABDOMEN: Soft, mildly tender, improving distended, NG tube with green bilious output
SKIN: Right foot dressing intact
Patient has a remy catheter: No
Patient has a central line: No
[2025-08-06 15:10] VITALS: BP 160/80
[2025-08-06 15:18] VITALS: BP 163/85; PULSE 98; O2SAT 95
[2025-08-06] MEDS: LOVENOX 40 MG SC (18:09)
[2025-08-06] MEDS: NEUPRO 1 MG TRANSDERM (20:58)
[2025-08-06 23:00] VITALS: BP 169/92
[2025-08-07 00:25] VITALS: BP 158/89
[2025-08-07] MEDS: NSS 1000 IV ×2 (01:17→08:43)
[2025-08-07] MEDS: DILAUDID 1 MG IV ×5 (03:39→21:04)
[2025-08-07] MEDS: VIBRAMYCIN 260 MG IV ×2 (06:12→18:00)
--- NOTE | 2025-08-07 06:39 | W.PN.HOSP.TC ---
Today's Communication/Plan
-
- small bowel follow through
- advance diet as tolerated
- lisinopril for BP control
- wound care to see today
Assessment / Plan
Assessment / Plan
Ana Tijerina is a 75yo F with a pmh notable for chronic venous insufficiency, chronic pain (w opiate dependence), RA (not currently on biologics), and recurrent SBOs who presents with n/v, abd pain, & constipation, found to have SBO, now
being managed conservatively, and non-healing ankle wound, being followed by wound care.
#SBO in s/o adhesions
#Hx recurrent SBOs
On presentation, 4 days lower abd pain/firmness, vomiting bile, low appetite, minimal flatus, no BM in 3-4 days. PSH: cholecystecomy, hysterectomy, SBO s/p 51' bowel resection (2013), SBO s/p conservative mgmt (2019). CT a/p w/wo contrast (08/04)
demonstrated SBO with SB dilatation present, no evidence of bowel threat of compromise. Afebrile, WBC wnl. Lactate wnl, low c/f ischemia. S/p IVF.
Today, with improving pain and 3 BM + flatus. AVSS. NGT output: 1000ml>1100ml>900ml today.
- NG tube in place
- NPO w ice chips as of this am, can advance as tolerated post-SBFT
- Small bowel follow-through today, per surgery
- Continue to monitor GI sx
- Pain mgmt dilaudid prn
- Zofran prn
- S/p IVF
- Surgery following, appreciate recs
#Nonhealing R ankle wound
Hx R ankle replacement in s/o RA in Dec 2024 at [place], c/b MRSA post-op infection, s/p multiple OR washouts & skin grafts, most recent May 2025. Has been on IV abx until 08/03/25, transitioned to PO doxy for planned 6mo course (08/03-). Plans for
wound VAC placement by VN at home, pending delivery (was supposed to be delivered 08/04-08/05). Outpt appt next week w Dr. Rodriguez (08/10), last saw him 08/04. Wound vac instructions obtained from [place] [facility] (08/05) - see update note.
- Continue doxy 100mg IV q12h
- Wound vac placement ordered�to be placed by wound care on Thursday (may need to be changed out for smaller home wound VAC by visiting nurse upon discharge)
- Wound care following, appreciate recs
- Keep R foot elevated
#Elevated BP
#Tachycardia
Pt denies hx of HTN, takes no antihypertensives at home. BP overnight 08/05 reached peak of 171/80 > 148/72 this am. Potentially 2/2 pain, emotional agitation. Has been fluctuating. Has been getting IVF. Last night 08/06, BP 169/92 and this am 158/89.
- Continue to monitor
- Start lisinopril 5mg daily
#Chronic:
-Atrial tachycardia, PACs, SVT - monitor HR
-HLD - rosuvastatin to be restarted once PO meds tolerable
-Hypothyroidism - levothyroxine to be restarted once PO meds tolerable
-RA - not on trt at this time
-Chronic anemia - follow hgb, stable 10.5
-Chronic venous insufficiency - compression stockings
-Restless leg syndrome - pramipexole to be restarted once PO meds tolerable; rotigotine 1mg patch in the meantime
#Global
-DVT ppx: heparin
-Diet: NPO, chips, advance as tolerated
-Code: full
-Dispo: to home, pending resolution of SBO
Anticipated Discharge: 24 - 48 hours
Subjective/Interval History
-
Date of Service: August 07, 2025
Patient reports that she has no nausea this morning, and abdominal pain is improved. She had 3 bowel movements in the last 24 hours, and is passing gas. Denies F/C overnight. Is adamant about being able to leave in time for her appointment with
orthopedic surgery on for her right foot.
Objective Data
-
Labs:
Laboratory Results
08/07/25
06:00
WBC Pending
Hgb Pending
Hct Pending
Plt Count Pending
Sodium Pending
Potassium Pending
Chloride Pending
Carbon Dioxide Pending
BUN Pending
Creatinine Pending
Glucose Pending
Calcium Pending
Total Bilirubin Pending
AST Pending
ALT Pending
Alkaline Phosphatase Pending
Vital Signs:
Vital Signs
Temp Pulse Resp BP Pulse Ox
98.9 F 93 16 158/89 100
08/06/25 23:00 08/07/25 00:25 08/06/25 23:00 08/07/25 00:25 08/07/25 01:35
I&O
08/05/25 08/06/25 08/07/25
06:59 06:59 06:59
Intake Total 1700 / 1700 1850 / 1850 420 / 420
Output Total 1000 / 1000 1100 / 1100 900 / 900
Balance 700 / 700 750 / 750 -480 / -480
Review of Systems
-
History Source: Patient
Respiratory: Reports No Symptoms
Cardiac: Reports No Symptoms
Abdomen/GI: Reports Abdominal Pain (improving) and Nausea (denies)
Physical Exam
-
General: Well Developed, Well Nourished and Comfortable
HEENT: Normocephalic, Atraumatic and Anicteric
Respiratory: Non Labored Respirations
Cardiac: Regular Rhythm
GI: Soft (improved from yesterday ), Tender (less so than yesterday throughout), Distended (tension improved from yesterday ) and Other (NG tube with green bilious output, volume decreased from yesterday)
Musculoskeletal: Other (R foot elevated on wedge w izabela bandage on )
Neuro: AO x 3
Psych: Calm
Data Reviewed
-
Total Time Spent with Patient (in minutes): 10
Critical Care Time (in minutes): 35
Labs: Labs Reviewed by me
[2025-08-07 07:20] VITALS: BP 148/81
[2025-08-07 07:56] LABS: ALT (SGPT) 27 U/L (0-35); AST (SGOT) 28 U/L (14-36); Albumin 3.4 g/dl (3.5-5.0); Alkaline Phosphatase 103 U/L (38-126); Blood Urea Nitrogen 14 mg/dl (7-17); Calcium 10.3 mg/dl (8.4-10.2); Carbon Dioxide 23 mmol/L (22-30); Chloride 111 mmol/L (98-107); Estimated Creatinine Clearance 73 ml/min; Glucose 69 mg/dl (70-99); Potassium 3.7 mmol/L (3.5-5.1); Sodium 143 mmol/L (135-145); Total Protein 5.1 g/dl (6.3-8.2); eGFR > 60.00
[2025-08-07 08:10] LABS: Hematocrit 29.9 % (37.0-47.0); Hemoglobin 9.3 g/dL (12.0-16.0); Mean Corp Hgb Conc. 31.1 g/dL (33.0-37.0); Mean Corpuscular Volume 87.4 fL (81.0-99.0); Nucleated Red Blood Cells % 0 %; Platelet Count 382 10^3/uL (130-400); Red Cell Dist. Width 16.7 % (11.5-14.5)
--- NOTE | 2025-08-07 10:09 | W.PN.GS2 ---
Today's Communication / Plan
-
SBFT
Assessment / Plan
-
This is a 75-year-old female with a history of RA, cholecystectomy, exploratory laparotomy with SBR (130 cm) in [address] Valenzuela for small bowel obstruction, incisional hernia repair with mesh in 2017, multiple orthopedic surgeries who presents
with abdominal pain and bilious emesis for 2 to 3 days found to have a fairly high-grade small bowel obstruction.
Beginning to have improvement
+Flatus/BM this am
NGT outputs more gastric now but still bile tinged
Plan:
Will continue nonoperative management of the her SBO.
Check SBFT study, may be able to remove NGT and start clears pending results
Out of bed and ambulate as able, PT consult placed
Wound care consulted to follow RLE, Vac was planned as an outpatient. Surgical follow up scheduled as outpatient on
Okay for a few ice chips, chewing gum.
VTE ppx with lovenox
General surgery will continue to follow.
Subjective Data
-
Date of Service: August 07, 2025
Pt seen and examined at bedside with Dr. Ulloa. Denies nausea/vomiting. Passed some liquid stool and flatus this am. Denies pain.
Objective Data
-
Intake and Output
08/06/25 08/07/25 08/08/25
06:59 06:59 06:59
Intake Total 1850 / 1850 420 / 420
Output Total 1100 / 1100 900 / 900
Balance 750 / 750 -480 / -480
Intake:
Oral fluids 240 / 240
IV fluids (Total) 1700 / 1700
Amount instilled into GI Tube ( 150 / 150 180 / 180
Total)
[place] Sump 150 / 150 180 / 180
Output:
Gastrointestinal tube output ( 1100 / 1100 900 / 900
Total)
[place] Sump 1100 / 1100 900 / 900
Other:
Number of approximated MODERATE 2
amounts of urine
How many times incontinent 2
MODERATE amount urine
Number of unmeasured liquid
stools
Rectum 1
Vital Signs
Temp Pulse Resp BP Pulse Ox
98.0 F 95 16 148/81 99
08/07/25 07:20 08/07/25 07:20 08/07/25 07:20 08/07/25 07:20 08/07/25 07:20
Lab Results
08/07/25 06:47
08/07/25 06:47
Calcium 10.3 mg/dl (8.4-10.2) H 08/07/25 06:47
Total Bilirubin 0.4 mg/dl (0.2-1.3) 08/07/25 06:47
AST 28 U/L (14-36) 08/07/25 06:47
ALT 27 U/L (0-35) 08/07/25 06:47
Alkaline Phosphatase 103 U/L (38-126) 08/07/25 06:47
Total Protein 5.1 g/dl (6.3-8.2) L 08/07/25 06:47
Albumin 3.4 g/dl (3.5-5.0) L 08/07/25 06:47
Physical Exam
-
GENERAL/NEURO: Awake, Alert, no distress
CHEST: Unlabored breathing on RA
ABDOMEN: Soft, non tender, improving distention, NG tube with light green outputs
SKIN: Right foot dressing intact
Patient has a remy catheter: No
Patient has a central line: No
[2025-08-07] MEDS: ZOFRAN 4 MG IV (10:36)
[2025-08-07] MEDS: ZESTRIL PO (11:53)
[2025-08-07 12:41] LABS: Vitamin D, 25-OH*** 30.5 ng/mL (30-80)
--- NOTE | 2025-08-07 13:19 | WOUNDNOTE ---
R LATERAL FOOT/ANKLE
--- NOTE | 2025-08-07 13:19 | WOUNDNOTE ---
R ANTERIOR ANKLE/FOOT
--- NOTE | 2025-08-07 13:20 | WOUNDNOTE ---
R MEDIAL ANKLE/FOOT
--- NOTE | 2025-08-07 13:23 | WOUNDNOTE ---
R POSTERIOR LATERAL ANKLE
--- NOTE | 2025-08-07 13:25 | WOUNDNOTE ---
[facility] RN note: Patient admitted with small bowel obstruction.
See H&P for complete history.
PMH: ED Past Medical History: Arrthythmia, HTN, Hypothyroidism and Other (RA, colitis)
ED Past Surgical History: Bowel resection, Cardiac, Cholecystectomy, Gynecological, Orthopedic (multiple jjoint replacements) R ankle/flaps.
Wound Location and type/assessment: Patient admitted with: Healing surgical site to R foot/ankle. S/P R ankle replacement in 2024 done at [place]. Most recently had I&D of site and skin grafts done at [place] by Dr. Rodriguez in May. Graft site appears
intact, very dry flaky skin surrounding flat suture lines. Base of remaining open suture lines mainly along lateral edge, have a moist sharma base. Moderate serous drainage, no odor or signs of infection. Base of suture lines too shallow for wound vac,
ADDI Blackman in agreement. Patient states she was supposed to have a wound vac applied at home by [facility] VN's but has not obtained supplies yet. Confirmed with Dr. Rodriguez's office, (spoke with nurse Linh Anderson) can hold off on wound vac
while here and apply adaptic, dry gauze and kerlix with izabela wrap to secure bid. Patient is using own ankle immobilizer boot to R foot only when walking. Has own foam wedge to elevate R leg when in bed. Follow up apt is with Dr. rodriguez
patient states. Heels are intact, patient able to turn to side and sacrum is intact.
Appetite: NPO.
Pressure redistribution devices in place: On Accumax, turns self and oob with minimal assist.
Plan: Local wound care as described above, notified ADDI Blackman of the above plan and will discontinue wound vac order for while here in hospital. Updated nurse Luzma and called SPD to excelsior picker unused wound vac machine.
Updated care plan and will follow as needed.
Note to case management of equipment requested for discharge: Home with [facility].
--- NOTE | 2025-08-07 14:19 | CM ---
CM following re: discharge planning.
Reviewed pt's chart, met with pt.
PT and OT evaluations noted - home PT/OT recommended. Pt is current with [facility] at home VN. A referral to [facility] made, pt is accepted for after care VN services.
CM spoke to [facility] RN who is managing pt's care at home and she stated that per [facility] Dr. Rodriguez wound vac is ordered and he will follow up with salt miner Pattie.
CM will follow up closely with salt miner to see whether or not pt will need wound vac at home and who will order or it already ordered.
D/C plan: home with [facility] VN and family support.
CM will follow with discharge plan updaters hospitalization progresses
[2025-08-07] MEDS: D5LR 1000 IV (14:58)
[2025-08-07 15:10] VITALS: BP 168/108
--- NOTE | 2025-08-07 16:29 | W.PN.UPDATE ---
Update Note
Progress Note Update
Pt seen and examined at bedside.
Continues to pass some stools and flatus; however, NGT with dark bilious drainage with residual abdominal distention. N/V with oral contrast earlier today but resolved with zofran. Feels relief currently after returning NGT to suction for
decompression. Reviewed imaging findings with patient from today which demonstrates persistent SBO. Xray planned at 1900 in follow up. Discussed possible surgery tomorrow if no improvement.
She is quite anxious that she may miss her outpatient follow up appointment with her limb salvage surgeon at [facility] this if she is hospitalized much longer d/t her abdominal issues. Appreciate wound care evaluation today (see wound
care note and photos). Pt noted she was going to have a wound vac placed by home care this week to suture line. The wound is healing well, and the wound base appears too shallow for vac sponge, ongoing serous drainage noted. She has been continued
on doxycycline BID as per her home abx regimen. Discussion was had with Dr. Rodriguez's office, her primary surgeon at [facility] regarding her wound. Ok to hold off on placing wound vac at this point and continue local wound care with BID and prn
dressing changes with adaptic to suture line and kerlix/izabela wraps to hold in place. D/W patient that this conversation was had. As I anticipate she may need to be hospitalized beyond her scheduled appointment this , I did offer to attempt
transfer to [facility] to continue her care there in the hopes that maybe she could see Dr. Rodriguez as an inpatient although I cannot guarantee that he would be available and there does not appear to be any acute issues with her wound healing
currently. She is considering transfer but currently declines. She will consider possible surgery tomorrow and discuss with surgical team in the AM.
[2025-08-07 16:51] VITALS: BP 168/92
--- NOTE | 2025-08-07 17:51 | PTCARENOTE ---
Patient's BP elevated throughout shift, 168/108 automatic LUE taken by tech, manual taken by this RN 168/92. Patient refusing ordered PO lisinopril, and resident at bedside during refusal and aware. Patient states generalized abd pain throughout
shift rated 8/10, administered PRN IV Dilaudid throughout shift - see MAR. R NGT to low int suction draining dark green output, bout of nausea and vomiting after SBFT/contrast administration earlier in shift, 120ml green/yellow emesis, surgery
aware. Repeat abd xray scheduled for 1900 tonight per surgery team. Resident made aware of BP results, no new orders at this time.
[2025-08-07] MEDS: LOVENOX 40 MG SC (17:59)
[2025-08-07] MEDS: NEUPRO 1 MG TRANSDERM (20:59)
[2025-08-07 23:26] VITALS: BP 152/71
[2025-08-08] MEDS: DILAUDID 1 MG IV ×2 (01:12→21:38)
[2025-08-08] MEDS: OFIRMEV 100 IV (01:37)
--- NOTE | 2025-08-08 05:01 | PTCARENOTE ---
patient with large formed bowel movement, followed by liquid stool. While cleaning up patient, NG tube fell out. Denies nausea. Notified [facility], will leave NG tube out for now, repeat xray ordered for the morning. Patient updated on plan of care
[2025-08-08] MEDS: D5LR 1000 IV (06:09)
[2025-08-08] MEDS: VIBRAMYCIN 260 MG IV ×2 (06:10→18:00)
--- NOTE | 2025-08-08 06:57 | W.PN.HOSP.TC ---
Addendum entered and electronically signed by Ramirez Valle MD 08/09/25 15:27:
SBo secondary to adhesion
-symptoms improving
-having bm's but loose, did have contrast from small bowel folow through
-ngt out
-completed small bowel follow thorugh which was concerning
-surgery did not belive operative management was warranted at this time
-npo
-follow up AM abd xray
Right ankle wound
Continue IV antibiotics with doxycycline once tolerating p.o. transition to orals until stop date
Continue wound care
Wound care following, ?wound vac.
Original Note:
Today's Communication/Plan
-
- Conservative vs. surgical mgmt pending surgery recs/review of this am abd xray
- NPO
- Pain mgmt
- Wound care
Assessment / Plan
Assessment / Plan
Ana Tijerina is a 75yo F with a pmh notable for chronic venous insufficiency, chronic pain (w opiate dependence), RA (not currently on biologics), and recurrent SBOs who presents with n/v, abd pain, & constipation, found to have SBO, now
being managed conservatively, and non-healing ankle wound, being followed by wound care.
#SBO in s/o adhesions
#Hx recurrent SBOs
On presentation, 4 days lower abd pain/firmness, vomiting bile, low appetite, minimal flatus, no BM in 3-4 days. PSH: cholecystecomy, hysterectomy, SBO s/p 51' bowel resection (2013), SBO s/p conservative mgmt (2019). CT a/p w/wo contrast (08/04)
demonstrated SBO with SB dilatation present, no evidence of bowel threat of compromise. Afebrile, WBC wnl. Lactate wnl, low c/f ischemia. S/p IVF. Small bowel follow-through & repeat abd xray on 08/07 demonstrated persistence of suspected distal SBO.
Today, with resolved abd pain & s/p episode of large-volume diarrhea overnight. NG out as of this am ('fell out') - monitoring. NGT output prior to displacement remained stable from prior day, continuing to output bilious fluid.
- Repeat abd xray this am
- Jered was considering operative mgmt today as of 08/07; will await recs today s/p diarrhea & NG tube out
- NPO, pending advance to clears
- Continue to monitor GI sx
- Pain mgmt dilaudid prn
- Zofran prn
- Surgery following, appreciate recs
#Nonhealing R ankle wound
Hx R ankle replacement in s/o RA in Dec 2024 at [place], c/b MRSA post-op infection, s/p multiple OR washouts & skin grafts, most recent May 2025. Has been on IV abx until 08/03/25, transitioned to PO doxy for planned 6mo course (08/03-). Plans for
wound VAC placement by VN at home, pending delivery (was supposed to be delivered 08/04-08/05). Outpt appt next week w Dr. Rodriguez (08/10), last saw him 08/04. Wound vac instructions obtained from [facility] (08/05) - see update note. [facility] care team 08/07 found no
open incisional wound for vac placement, interval improvement. Discussed w [facility] team, okay to hold on vac placement until further eval/outpatient setting.
- Continue doxy 100mg IV q12h
- Wound care following, appreciate recs
- Keep R foot elevated
#Hypernatremia
Na at 148 on 08/08 am. Likely in s/o dehydration, lack of PO intake since admission.
- Continue D5 fluids today
- Continue to trend CMP
#Elevated BP
#Tachycardia
Pt denies hx of HTN, takes no antihypertensives at home. BP overnight 08/05 reached peak of 171/80 > 148/72 this am. Potentially 2/2 pain, emotional agitation. Has been fluctuating. Has been getting IVF. Last night 08/06, BP 169/92 and this am 158/89.
Added lisinopril 5m daily (08/07) - patient refusing.
- Continue to monitor
#Chronic:
-Atrial tachycardia, PACs, SVT - monitor HR
-HLD - rosuvastatin to be restarted once PO meds tolerable
-Hypothyroidism - levothyroxine to be restarted once PO meds tolerable
-RA - not on trt at this time
-Chronic anemia - follow hgb, stable 10.5
-Chronic venous insufficiency - compression stockings
-Restless leg syndrome - pramipexole to be restarted once PO meds tolerable; rotigotine 1mg patch in the meantime
#Global
-DVT ppx: heparin
-Diet: NPO, chips, advance as tolerated
-Code: full
-Dispo: to home, pending resolution of SBO
Anticipated Discharge: 24 - 48 hours
Subjective/Interval History
-
Date of Service: August 08, 2025
Patient this morning sitting out of bed with no NG tube in place. States that overnight she had explosive, high-volume diarrhea, and when she got up to use the bathroom the NG tube 'fell out.' Overnight provider advised leaving it out and repeating
abdominal x-ray this morning to evaluate status of SBO. Per patient, this morning she has no abdominal pain at all and no n/v.
Objective Data
-
Labs:
Laboratory Results
08/08/25
06:00
WBC Pending
Hgb Pending
Hct Pending
Plt Count Pending
Sodium Pending
Potassium Pending
Chloride Pending
Carbon Dioxide Pending
BUN Pending
Creatinine Pending
Glucose Pending
Calcium Pending
Total Bilirubin Pending
AST Pending
ALT Pending
Alkaline Phosphatase Pending
Vital Signs:
Vital Signs
Temp Pulse Resp BP Pulse Ox
98.5 F 96 18 152/71 96
08/07/25 23:26 08/07/25 23:26 08/07/25 23:26 08/07/25 23:26 08/07/25 23:26
I&O
08/06/25 08/07/25 08/08/25
06:59 06:59 06:59
Intake Total 1850 / 1850 420 / 420 1700 / 1700
Output Total 1100 / 1100 900 / 900 1557 / 1557
Balance 750 / 750 -480 / -480 143 / 143
Review of Systems
-
History Source: Patient
Constitutional: Reports No Symptoms
Abdomen/GI: Reports No Symptoms
Musculoskeletal: Reports No Symptoms
Physical Exam
-
General: Well Developed, Well Nourished and Comfortable
HEENT: Normocephalic, Atraumatic and Anicteric
Respiratory: Non Labored Respirations
Cardiac: Regular Rhythm
GI: Soft (Improved from yesterday, although still feels slightly firm on the left side), Nontender (Abdomen no longer tender to palpation) and Other (NG tube out; old canister with bilious appearing fluid)
Musculoskeletal: Other (R foot w izabela bandage on )
Neuro: AO x 3
Psych: Calm
Data Reviewed
-
Total Time Spent with Patient (in minutes): 15
Critical Care Time (in minutes): 30
Diagnostic Radiology: Image personally visualized and interpreted and Report Reviewed by me
Labs: Labs Reviewed by me
[2025-08-08 07:29] VITALS: BP 144/71
[2025-08-08 08:01] LABS: Hematocrit 34.4 % (37.0-47.0); Hemoglobin 10.5 g/dL (12.0-16.0); Mean Corp Hgb Conc. 30.5 g/dL (33.0-37.0); Mean Corpuscular Volume 89.1 fL (81.0-99.0); Nucleated Red Blood Cells % 0 %; Platelet Count 474 10^3/uL (130-400); Red Cell Dist. Width 16.9 % (11.5-14.5)
[2025-08-08 08:02] LABS: ALT (SGPT) 28 U/L (0-35); AST (SGOT) 26 U/L (14-36); Albumin 4.1 g/dl (3.5-5.0); Alkaline Phosphatase 116 U/L (38-126); Blood Urea Nitrogen 17 mg/dl (7-17); Calcium 11.4 mg/dl (8.4-10.2); Carbon Dioxide 28 mmol/L (22-30); Chloride 110 mmol/L (98-107); Estimated Creatinine Clearance 73 ml/min; Glucose 121 mg/dl (70-99); Potassium 3.7 mmol/L (3.5-5.1); Sodium 148 mmol/L (135-145); Total Protein 5.9 g/dl (6.3-8.2); eGFR > 60.00
--- NOTE | 2025-08-08 08:10 | W.PN.GS2 ---
Addendum entered and electronically signed by Kwesi Gordon MD 08/08/25 12:25:
Patient seen and examined.
Feels much improved. Passing multiple liquid stools and flatus. No nausea or vomiting. Abdominal distention improved. Ambulating. Voiding. Eager for discharge.
Gen: NAD
Abd: soft, NT, mild distension, non-peritoneal, prior incisions well healed, palpable abdominal mesh, small recurrence, non-tender
Patient is a 75 yo F p/w SBO likely secondary to adhesions
Clinical and radiographic improvement. Slow transit given delays in UGI yesterday. In-depth discussion had with patient regarding options for management including surgical exploration versus continued medical management. We discussed that she may
have continued or relapsed symptoms given her slow transit. She denies any prior abdominal discomfort or symptoms of a more low-grade upper obstruction since 2017. She is very eager to get out of the hospital and maintain her follow-up appointment
with Jovon Banuelos regarding her foot. Plan for continued medical management.
Given her persistent small bowel dilation on follow-up x-ray would maintain NPO for today. Can trial clears tomorrow if no recurrent symptoms. Would not administer antidiarrheal medications in the setting of a resolving SBO.
-- NPO (OK for PO meds), IVF
-- Correct lytes, minimize narcotics
-- OOB/ambulate
Original Note:
Today's Communication / Plan
-
For Abdominal Xray today and review with results
Assessment / Plan
-
This is a 75-year-old female with a history of RA, cholecystectomy, exploratory laparotomy with SBR (130 cm) in [address] Valenzuela for small bowel obstruction, incisional hernia repair with mesh in 2017, multiple orthopedic surgeries who presents
with abdominal pain and bilious emesis for 2 to 3 days found to have a fairly high-grade small bowel obstruction.
Abdominal Xray done yesterday had shown bowel obstruction
However, had a large BM early this morning at 4am.
Also said that her NGT came off this morning.
No nausea, vomiting or abdominal pain
Plan:
Will continue nonoperative management of the her SBO.
Repeat Abdominal Xray this morning to assess for if residual bowel content
Out of bed and ambulate as able, PT
Continue Wound care.
VTE PPX- Lovenox
General surgery will continue to follow.
Subjective Data
-
Date of Service: August 08, 2025
Objective Data
-
Intake and Output
08/07/25 08/08/25 08/09/25
06:59 06:59 06:59
Intake Total 420 / 420 1700 / 1700
Output Total 900 / 900 1557 / 1557
Balance -480 / -480 143 / 143
Intake:
Oral fluids 240 / 240 240 / 240
IV fluids (Total) 1200 / 1200
IV piggybacks 260 / 260
Amount instilled into GI Tube ( 180 / 180
Total)
[place] Sump 180 / 180
Output:
Liquid stool amount 7 / 7
Rectum 7 / 7
Gastrointestinal tube output ( 900 / 900 1550 / 1550
Total)
[place] Sump 900 / 900 1550 / 1550
Other:
Number of approximated MODERATE 2 3
amounts of urine
Number of unmeasured liquid
stools
Rectum 1 3
Vital Signs
Temp Pulse Resp BP Pulse Ox
98.2 F 84 18 144/71 99
08/08/25 07:29 08/08/25 07:29 08/08/25 07:29 08/08/25 07:29 08/08/25 07:29
Lab Results
08/08/25 07:00
08/08/25 07:00
Calcium 11.4 mg/dl (8.4-10.2) H 08/08/25 07:00
Total Bilirubin 0.5 mg/dl (0.2-1.3) 08/08/25 07:00
AST 26 U/L (14-36) 08/08/25 07:00
ALT 28 U/L (0-35) 08/08/25 07:00
Alkaline Phosphatase 116 U/L (38-126) 08/08/25 07:00
Total Protein 5.9 g/dl (6.3-8.2) L 08/08/25 07:00
Albumin 4.1 g/dl (3.5-5.0) 08/08/25 07:00
Physical Exam
-
Elderly lady, in no obvious distress
CVS; S1 S2 Only
RS; Vesicular breath sounds only
ABD; not distended, moves with respiration
Soft, non tender.
Palpable small bumps beneath skin on previous abdominal hernia site
Bowel sounds are present
Patient has a remy catheter: No
Patient has a central line: No
[2025-08-08] MEDS: ZESTRIL PO (08:52)
[2025-08-08] MEDS: D5LR IV (08:58)
[2025-08-08 12:23] VITALS: BP 184/91
--- NOTE | 2025-08-08 12:33 | CM ---
Patient seen at bedside on . Patient stated that she understands that [facility] will be out to see her on thursday and that they have already ordered the wound vac for delivery at home. Patient with no other concerns at this time,
enroute to bathroom at this time. CM will continue to follow for discharge planning needs.
Plan; home with [facility] and wound vac
--- NOTE | 2025-08-08 13:58 | PTCARENOTE ---
Patient with frequent amount of liquid brown/green diarrhea with urgency, denies abd pain and nausea this shift but c/o frequent stools and blood when wiping. MD and surgery made aware, stool sample sent to lab per MD, no antidiarrheal medication
per surgery team. Hygiene provided to patient, sacrum/buttock foam replaced. R foot wound dressing changed per wound care order, IVF infusing through L wrist IV.
[2025-08-08 15:18] VITALS: BP 171/80
--- NOTE | 2025-08-08 16:19 | PTCARENOTE ---
Addendum entered by Pat Lambert RN 08/08/25 18:21:
Patient in agreement to take PO lisinopril at this time, MD and resident aware, okay to give AM dose at this time.
Original Note:
Patient's automatic BP taken by tech 171/80 RUE, repeat manual BP taken by this RN 174/90. Patient laying in bed, states she has no pain or nausea but c/o restless leg. Patient refusing ordered PO lisinopril this AM, this RN asked patient again
about taking blood pressure medication, patient continuing to refuse. MD and resident made aware, no new orders at this time. PO Mirapex added for restless leg per resident - see JAN.
[2025-08-08] MEDS: MIRAPEX 0.125 MG PO ×2 (17:25→21:30)
[2025-08-08] MEDS: LOVENOX 40 MG SC (17:25)
[2025-08-08] MEDS: ZESTRIL 5 MG PO (17:26)
[2025-08-08 19:30] VITALS: BP 171/89
[2025-08-08 23:28] VITALS: BP 129/61
[2025-08-09] MEDS: D5LR IV ×3 (01:23→21:36)
[2025-08-09] MEDS: D5LR 1000 IV ×2 (01:24→15:46)
[2025-08-09] MEDS: VIBRAMYCIN 260 MG IV ×2 (06:09→18:14)
--- NOTE | 2025-08-09 07:00 | W.PN.HOSP.TC ---
Addendum entered and electronically signed by Ramirez Valle MD 08/09/25 15:25:
SBo secondary to adhesion
-symptoms improving
-having bm's
-ngt out
-completed small bowel follow thorugh which was concerning
-surgery did not belive operative management was warranted at this time
-cld, adat
Right ankle wound
Continue IV antibiotics with doxycycline once tolerating p.o. transition to orals until stop date
Continue wound care
Wound care initially planned for wound VAC however reevaluated did not believe a wound VAC was required as it was well-approximated with good healing. Therefore at this time continue local wound care.
Original Note:
Today's Communication/Plan
-
- Advance diet as tolerated today
- Convert doxy to PO on discharge
- Dispo potentially tomorrow
- Replete K
Assessment / Plan
Assessment / Plan
Ana Tijerina is a 75yo F with a pmh notable for chronic venous insufficiency, chronic pain (w opiate dependence), RA (not currently on biologics), and recurrent SBOs who presents with n/v, abd pain, & constipation, found to have SBO, now
improving s/p conservative mgmt.
#SBO in s/o adhesions
#Hx recurrent SBOs
On presentation, 4 days lower abd pain/firmness, vomiting bile, low appetite, minimal flatus, no BM in 3-4 days. PSH: cholecystecomy, hysterectomy, SBO s/p 51' bowel resection (2013), SBO s/p conservative mgmt (2019). CT a/p w/wo contrast (08/04)
demonstrated SBO with SB dilatation present, no evidence of bowel threat of compromise. Afebrile, WBC wnl. Lactate wnl, low c/f ischemia. S/p IVF. Small bowel follow-through & repeat abd xray on 08/07 demonstrated persistence of suspected distal SBO.
Today, with resolved abd pain & minimal diarrhea. NG not in. No n/v.
- Slowly advance diet as tolerated throughout today
- Continue to monitor GI sx
- Pain mgmt dilaudid prn
- Zofran prn
- Surgery following, appreciate recs
#Hypokalemia
K 3.0 today. In s/o large volume diarrhea yesterday.
- Replete w 80mg PO KCl
#Elevated BP
#Tachycardia
Pt denies hx of HTN, takes no antihypertensives at home. BP overnight 08/05 reached peak of 171/80 > 148/72 this am. Potentially 2/2 pain, emotional agitation. Has been fluctuating. Has been getting IVF. Last night 08/06, BP 169/92 and this am 158/89.
Added lisinopril 5mg daily (08/07) - patient refusing until 08/08 evening. BP 08/09 am down to 129/61 after 171/89.
- Continue to monitor
- Lisinopril 5mg daily if pt accepts
- Recommend evaluation in outpatient setting to ascertain +/- HTN outside of hospital
#Nonhealing R ankle wound
Hx R ankle replacement in s/o RA in Dec 2024 at [facility], c/b MRSA post-op infection, s/p multiple OR washouts & skin grafts, most recent May 2025. Has been on IV abx until 08/03/25, transitioned to PO doxy for planned 6mo course (08/03-). Plans for
wound VAC placement by VN at home, pending delivery (was supposed to be delivered 08/04-08/05). Outpt appt next week w Dr. Rodriguez (08/10), last saw him 08/04. Wound vac instructions obtained from [facility] (08/05) - see update note. [facility] care team 08/07 found no
open incisional wound for vac placement, interval improvement. Discussed w [facility] team, okay to hold on vac placement until further eval/outpatient setting.
- Continue doxy 100mg IV q12h
- Wound care following, appreciate recs
- Keep R foot elevated
#Chronic:
-Atrial tachycardia, PACs, SVT - monitor HR
-HLD - rosuvastatin to be restarted once PO meds tolerable
-Hypothyroidism - levothyroxine to be restarted once PO meds tolerable
-RA - not on trt at this time
-Chronic anemia - follow hgb, stable 10.5
-Chronic venous insufficiency - compression stockings
-Restless leg syndrome - pramipexole to be restarted once PO meds tolerable; rotigotine 1mg patch in the meantime
#Global
-DVT ppx: heparin
-Diet: NPO, chips, advance as tolerated as above
-Code: full
-Dispo: to home, pending able to tolerate PO intake; potentially tomorrow
Anticipated Discharge: Within 24 hours
Subjective/Interval History
-
Date of Service: August 09, 2025
Patient reports diarrhea has slowed, just a smaller amt this am. Denies any abdominal pain, no n/v with ice chips. Ready to advance diet. Has appt on for her foot outpatient. No complaints.
Objective Data
-
Labs:
Laboratory Results
08/09/25
06:00
WBC Pending
Hgb Pending
Hct Pending
Plt Count Pending
Sodium Pending
Potassium Pending
Chloride Pending
Carbon Dioxide Pending
BUN Pending
Creatinine Pending
Glucose Pending
Calcium Pending
Total Bilirubin Pending
AST Pending
ALT Pending
Alkaline Phosphatase Pending
Vital Signs:
Vital Signs
Temp Pulse Resp BP Pulse Ox
97.9 F 87 18 129/61 99
08/08/25 23:28 08/08/25 23:28 08/08/25 23:28 08/08/25 23:28 08/09/25 01:47
I&O
09/08/2408/09/25 08/10/25
06:59 06:59 06:59
Intake Total 1700 / 1700
Output Total 1557 / 1557
Balance 143 / 143
Review of Systems
-
History Source: Patient
Constitutional: Reports No Symptoms
Abdomen/GI: Reports No Symptoms
Genitourinary: Reports Other (Diarrhea, slowing from yesterday)
Musculoskeletal: Reports No Symptoms
Physical Exam
-
General: Well Developed, Well Nourished and Comfortable
HEENT: Normocephalic, Atraumatic and Anicteric
Respiratory: Non Labored Respirations
Cardiac: Regular Rhythm
GI: Soft (Soft throughout; no areas of tense nests), Nontender (Nontender throughout all 4 quadrants) and Other (Without NG tube)
Musculoskeletal: Other (R foot w izabela bandage on, elevated on foam wedge)
Neuro: AO x 3
Psych: Calm
Data Reviewed
-
Total Time Spent with Patient (in minutes): 10
Critical Care Time (in minutes): 30
Diagnostic Radiology: Report Reviewed by me
Labs: Labs Reviewed by me
[2025-08-09 07:20] VITALS: BP 136/59
[2025-08-09 08:15] LABS: Hematocrit 30.3 % (37.0-47.0); Hemoglobin 9.8 g/dL (12.0-16.0); Mean Corp Hgb Conc. 32.3 g/dL (33.0-37.0); Mean Corpuscular Volume 88.3 fL (81.0-99.0); Nucleated Red Blood Cells % 0 %; Platelet Count 410 10^3/uL (130-400); Red Cell Dist. Width 16.8 % (11.5-14.5)
[2025-08-09] MEDS: ZESTRIL 5 MG PO (08:16)
[2025-08-09] MEDS: MIRAPEX 0.125 MG PO ×3 (08:17→22:30)
[2025-08-09 09:51] LABS: ALT (SGPT) 23 U/L (0-35); AST (SGOT) 22 U/L (14-36); Albumin 3.3 g/dl (3.5-5.0); Alkaline Phosphatase 91 U/L (38-126); Blood Urea Nitrogen 13 mg/dl (7-17); Calcium 10.5 mg/dl (8.4-10.2); Carbon Dioxide 30 mmol/L (22-30); Chloride 109 mmol/L (98-107); Estimated Creatinine Clearance 73 ml/min; Glucose 88 mg/dl (70-99); Potassium 3.0 mmol/L (3.5-5.1); Sodium 145 mmol/L (135-145); Total Protein 5.0 g/dl (6.3-8.2); eGFR > 60.00
--- NOTE | 2025-08-09 10:07 | W.PN.GS2 ---
Today's Communication / Plan
-
CLD
Assessment / Plan
-
This is a 75-year-old female with a history of RA, cholecystectomy, exploratory laparotomy with SBR (130 cm) in [address] Valenzuela for small bowel obstruction, incisional hernia repair with mesh in 2017, multiple orthopedic surgeries who presents
with abdominal pain and bilious emesis for 2 to 3 days found to have a fairly high-grade small bowel obstruction.
Psssing stool and flatus
No nausea, vomiting or abdominal pain
Plan:
Adv to CLD
Out of bed and ambulate as able, PT
Continue Wound care.
VTE PPX- Lovenox
General surgery will continue to follow.
Subjective Data
-
Date of Service: August 09, 2025
AFVSS, ambulating, voiding, passing stool and flatus, denies n/v
Objective Data
-
Intake and Output
08/08/25 08/09/25 08/10/25
06:59 06:59 06:59
Intake Total 1700 / 1700
Output Total 1557 / 1557
Balance 143 / 143
Intake:
Oral fluids 240 / 240
IV fluids (Total) 1200 / 1200
IV piggybacks 260 / 260
Output:
Liquid stool amount 7 / 7
Rectum 7 / 7
Gastrointestinal tube output ( 1550 / 1550
Total)
[place] Sump 1550 / 1550
Other:
Number of approximated MODERATE 3 3
amounts of urine
Number of unmeasured liquid
stools
Rectum 3 3
Vital Signs
Temp Pulse Resp BP Pulse Ox
98.8 F 73 16 136/59 98
08/09/25 07:20 08/09/25 08:16 08/09/25 07:20 08/09/25 08:16 08/09/25 09:15
Lab Results
08/09/25 07:20
08/09/25 07:20
Calcium 10.5 mg/dl (8.4-10.2) H 08/09/25 07:20
Total Bilirubin 0.4 mg/dl (0.2-1.3) 08/09/25 07:20
AST 22 U/L (14-36) 08/09/25 07:20
ALT 23 U/L (0-35) 08/09/25 07:20
Alkaline Phosphatase 91 U/L (38-126) 08/09/25 07:20
Total Protein 5.0 g/dl (6.3-8.2) L 08/09/25 07:20
Albumin 3.3 g/dl (3.5-5.0) L 08/09/25 07:20
Physical Exam
-
Gen: NAD
Abd: soft, nt, palpable subq suture, mild distention
Patient has a remy catheter: No
Patient has a central line: No
--- NOTE | 2025-08-09 10:28 | WOUNDNOTE ---
WON RN NOTE: Discussed discharge plan with NELSON Gaxiola, will be going home upon discharge and resume [facility]. To clarify when I spoke to Dr. Rodriguez's nurse Linh on 08/07, she confirmed that a home wound vac was ordered to be delivered to patient's
home, waiting insurance approval. At that time nurse also confirmed can do local wound care instead of wound vac while in hospital. NELSON Gaxiola aware we do not need to order a home vac for patient.
--- NOTE | 2025-08-09 10:35 | W.PN.GS2 ---
Addendum entered and electronically signed by Dakota Terrazas MD 08/09/25 16:19:
I was physically present and personally performed the stevens portions of the surgical evaluation and/or procedure with the resident. I discussed the findings, reviewed the resident�s note, and confirmed the medical decision-making. I provided direct
supervision as required and agree with the assessment and plan as documented with the following additions/corrections: Pls see my separate note
Original Note:
Today's Communication / Plan
-
Clear liquid diet today
Assessment / Plan
-
This is a 75-year-old female with a history of RA, cholecystectomy, exploratory laparotomy with SBR (130 cm) in [address] Valenzuela for small bowel obstruction, incisional hernia repair with mesh in 2017, multiple orthopedic surgeries who presents
with abdominal pain and bilious emesis for 2 to 3 days found to have a fairly high-grade small bowel obstruction.
Had a large bowel movement early yesterday morning.
She has had multiple liquid movement since then.
No nausea, vomiting or abdominal pain.
Repeat Abd Xray done yesterday;
Much improved previous findings suggesting small bowel obstruction.
Persistent mild small bowel dilatation with moderate residual contrast suggesting partial small bowel obstruction or mild small bowel ileus.
Plan:
Will continue nonoperative management of her SBO.
Start clear liquid diet today and monitor.
Out of bed and ambulate as able, PT
Continue Wound care.
VTE PPX- Lovenox
General surgery will continue to follow.
Subjective Data
-
Date of Service: August 09, 2025
Objective Data
-
Intake and Output
08/08/25 08/09/25 08/10/25
06:59 06:59 06:59
Intake Total 1700 / 1700
Output Total 1557 / 1557
Balance 143 / 143
Intake:
Oral fluids 240 / 240
IV fluids (Total) 1200 / 1200
IV piggybacks 260 / 260
Output:
Liquid stool amount
Rectum /
Gastrointestinal tube output ( 1549
Total)
[place] Sump 1549 / 1549
Other:
Number of approximated MODERATE 3 3
amounts of urine
Number of unmeasured liquid
stools
Rectum 3 3
Vital Signs
Temp Pulse Resp BP Pulse Ox
98.8 F 73 16 136/59 98
08/09/25 07:20 08/09/25 08:16 08/09/25 07:20 08/09/25 08:16 08/09/25 09:15
Lab Results
08/09/25 07:20
08/09/25 07:20
Calcium 10.5 mg/dl (8.4-10.2) H 08/09/25 07:20
Total Bilirubin 0.4 mg/dl (0.2-1.3) 08/09/25 07:20
AST 22 U/L (14-36) 08/09/25 07:20
ALT 23 U/L (0-35) 08/09/25 07:20
Alkaline Phosphatase 91 U/L (38-126) 08/09/25 07:20
Total Protein 5.0 g/dl (6.3-8.2) L 08/09/25 07:20
Albumin 3.3 g/dl (3.5-5.0) L 08/09/25 07:20
Physical Exam
-
Elderly lady, in no obvious distress
CVS; S1 S2 Only
RS; Vesicular breath sounds
ABD; not distended, moves with respiration
Soft, non tender.
Palpable small bumps beneath skin on previous abdominal hernia site
Bowel sounds are present
Patient has a remy catheter: No
Patient has a central line: No
[2025-08-09] MEDS: KCL 40 MEQ PO ×2 (11:08→13:26)
[2025-08-09 11:42] VITALS: BMI 26.3
--- NOTE | 2025-08-09 11:43 | PN.CDI ---
CDI
- -
CDI:
Physician Documentation Request
Admit Date: 08/04/25 15:19
Dear Doctor Saray,
Patient admitted for small bowel obstruction.
9/10 Potassium chloride: 3.0
9/10 Potassium chloride 40 meq PO administered
Based on the above, could you clarify in the progress notes, the appropriate diagnosis, if significant, that supports the above abnormalities and additional evaluation, monitoring and/or treatment rendered:
Hypokalemia
Abnormal lab value insignificant
Other
Use of terms such as suspected, likely, concern for, or probable (associated with a specific diagnosis that is being evaluated, monitored, or treated as if it exists) are acceptable and can be coded in the inpatient setting, when documented at the
time of discharge.
Thank you,
Smitha Davison RN, BSN
CDI Specialist
Available via [place] text
Please use your independent medical judgment in providing your response.
--- NOTE | 2025-08-09 12:49 | PTCARENOTE ---
Patient had multiple liquid stools, Brown/green in color since this am. No nausea, vomiting or no c/o of abdominal pain at this time. currently on clear liquid diet and Tolerating well.
[2025-08-09] MEDS: DILAUDID 1 MG IV ×2 (13:34→22:44)
[2025-08-09 14:45] LABS: Blood Urea Nitrogen 14 mg/dl (7-17); Calcium 10.6 mg/dl (8.4-10.2); Carbon Dioxide 29 mmol/L (22-30); Chloride 109 mmol/L (98-107); Estimated Creatinine Clearance 73 ml/min; Glucose 99 mg/dl (70-99); Potassium 3.1 mmol/L (3.5-5.1); Sodium 143 mmol/L (135-145); eGFR > 60.00
[2025-08-09 15:15] VITALS: BP 136/62
--- NOTE | 2025-08-09 15:25 | CM ---
CM following re: discharge planning.
Reviewed pt's chart, met with pt.
PT and OT evaluations noted - home PT/OT recommended. Pt is current with [facility] at home VN. A referral to [facility] made, pt is accepted for after care VN services.
CM spoke to waterworks supervisor Pattie and she is coordinating pt's needs for wound care with [facility] Dr. Rodriguez.
D/C plan: home with [facility] and family support.
CM will follow with discharge plan updaters hospitalization progresses
[2025-08-09] MEDS: LOVENOX 40 MG SC (17:09)
[2025-08-09] MEDS: KCL 20 MEQ PO (17:09)
[2025-08-09 23:25] VITALS: BP 131/69
[2025-08-10] MEDS: VIBRAMYCIN 260 MG IV (06:07)
--- NOTE | 2025-08-10 06:58 | W.PN.HOSP.TC ---
Addendum entered and electronically signed by Ramirez Valle MD 08/10/25 11:42:
She is able to verbalize understanding of AGAINST MEDICAL ADVICE and is competent to make this decision.
Addendum entered and electronically signed by Ramirez Valle MD 08/10/25 11:40:
When I evaluated her today. She stated that she wanted to go home. General surgery cleared her but they have not today for discharge home. And they want to continue to observe for. They just advance her diet to low residue. She still has some
abdominal tenderness. Now with diarrhea. After reviewing all these facts with her. She stated that she would leave AGAINST MEDICAL ADVICE as she continues to have diarrhea and she cannot expect people to clean her up. I informed her that should
not be an issue as we are here to take care of her and make her feel better. If she goes home preemptively she could get sicker diarrhea nausea vomiting could get worse. At this time she was treated nonoperatively for partial/high-grade small
bowel obstruction with NGT that was dislodged and eventually started on a diet which was advanced as tolerated.
Original Note:
Today's Communication/Plan
-
- Convert meds to PO today
- Monitor abd distention and GI sx as she advances diet to low residue this am
- Discharge later today or tmrw pending GI sx
Assessment / Plan
Assessment / Plan
Ana Tijerina is a 75yo F with a pmh notable for chronic venous insufficiency, chronic pain (w opiate dependence), RA (not currently on biologics), and recurrent SBOs who presents with n/v, abd pain, & constipation, found to have SBO, now
improving s/p conservative mgmt.
#SBO in s/o adhesions
#Hx recurrent SBOs
On presentation, 4 days lower abd pain/firmness, vomiting bile, low appetite, minimal flatus, no BM in 3-4 days. PSH: cholecystecomy, hysterectomy, SBO s/p 51' bowel resection (2013), SBO s/p conservative mgmt (2019). CT a/p w/wo contrast (08/04)
demonstrated SBO with SB dilatation present, no evidence of bowel threat of compromise. Afebrile, WBC wnl. Lactate wnl, low c/f ischemia. S/p IVF. Small bowel follow-through & repeat abd xray on 08/07 demonstrated persistence of suspected distal SBO.
Today, with resolved abd pain & minimal diarrhea still ongoing this am. NG not in. No n/v after full last night, no abd pain. However, still endorses distention of abd.
- Low residue diet this am from fulls last night
- Continue to monitor GI sx
- Pain mgmt converted to PO: scheduled tylenol 650mg TID, oxycodone PRN 5mg q4hr for moderate pain, PRN 10mg q4hr for severe pain
- Zofran prn, converted to PO
- Surgery following, appreciate recs
#Hypokalemia,
Hypokalemia 3.0-3.1 s/o large volume diarrhea yesterday. 3.6 today.
- Monitor, replete as needed
#Elevated BP
Pt denies hx of HTN, takes no antihypertensives at home. BP overnight 08/05 reached peak of 171/80 > 148/72 this am. Potentially 2/2 pain, emotional agitation. Has been fluctuating. Has been getting IVF. Last night 08/06, BP 169/92 and this am 158/89.
Added lisinopril 5mg daily (08/07) - patient refusing until 08/08 evening. BP 08/09 am down to 129/61 after 171/89. BP remaining wnl as of 08/10 (121/64), as pt has been taking daily lisinopril.
- Continue to monitor
- Continue lisinopril 5mg daily
- Recommend evaluation in outpatient setting to ascertain +/- HTN outside of hospital
#Nonhealing R ankle wound
Hx R ankle replacement in s/o RA in Dec 2024 at [place], c/b MRSA post-op infection, s/p multiple OR washouts & skin grafts, most recent May 2025. Has been on IV abx until 08/03/25, transitioned to PO doxy for planned 6mo course (08/03-). Plans for
wound VAC placement by VN at home, pending delivery (was supposed to be delivered 08/04-08/05). Outpt appt next week w Dr. Rodriguez (08/10), last saw him 08/04. Wound vac instructions obtained from Vin ARREDONDO (08/05) - see update note. [facility] care team 08/07 found no
open incisional wound for vac placement, interval improvement. Discussed w [place] team, okay to hold on vac placement until further eval/outpatient setting.
- Continue doxy 100mg q12h (converted to PO today)
- Wound care following, appreciate recs
- Keep R foot elevated
#Leukocytosis
WBC up to 11.3 today. Low c/f infection, afebrile, without sx. Likely in s/o pain, inflammatory response from diarrhea.
- Continue to monitor
#Chronic:
-Atrial tachycardia, PACs, SVT - monitor HR
-HLD - home rosuvastatin
-Hypothyroidism - home levothyroxine
-RA - not on trt at this time
-Chronic anemia - follow hgb, stable 10.5
-Chronic venous insufficiency - compression stockings
-Restless leg syndrome - home pramipexole
#Global
-DVT ppx: heparin
-Diet: low residue
-Code: full
-Dispo: to home, pending able to tolerate PO intake & improvement of distention; potentially later today or tomorrow
Anticipated Discharge: Within 24 hours
Subjective/Interval History
-
Date of Service: August 10, 2025
Had fulls dinner last night without n/v. Had 1 episode of diarrhea overnight and 1 episode of low volume diarrhea this am. Some blood, pt can feel hemorrhoid. She states that although diarrhea is slowing, she is scared to eat bfast b/c doesn't want
to have more diarrhea. Has been passing a bit of flatus. Says that has no abdominal pain but still feels bloated. Feels that abdomen is more distended than typical. Cancelled 12pm appt today with ortho outpatient.
Objective Data
-
Labs:
Laboratory Results
08/10/25
06:00
WBC Pending
Hgb Pending
Hct Pending
Plt Count Pending
Sodium Pending
Potassium Pending
Chloride Pending
Carbon Dioxide Pending
BUN Pending
Creatinine Pending
Glucose Pending
Calcium Pending
Total Bilirubin Pending
AST Pending
ALT Pending
Alkaline Phosphatase Pending
Vital Signs:
Vital Signs
Temp Pulse Resp BP Pulse Ox
97.6 F 74 16 131/69 100
08/09/25 23:25 08/09/25 23:25 08/09/25 23:25 08/09/25 23:25 08/09/25 23:25
I&O
08/08/25 08/09/25 08/10/25
06:59 06:59 06:59
Intake Total 1700 / 1700 2508 / 2508
Output Total 1557 / 1557
Balance 143 / 143 2508 / 2508
Review of Systems
-
History Source: Patient
Constitutional: Reports No Symptoms
Abdomen/GI: Reports No Symptoms
Genitourinary: Reports Other (Diarrhea, slowing from yesterday)
Musculoskeletal: Reports No Symptoms
Physical Exam
-
General: Well Developed, Well Nourished and Comfortable
HEENT: Normocephalic, Atraumatic and Anicteric
Respiratory: Non Labored Respirations
Cardiac: Regular Rhythm
GI: Soft (Soft throughout; no areas of tension), Nontender (Nontender throughout all 4 quadrants) and Distended (appears somewhat distended; per pt more than baseline )
Musculoskeletal: Other (R foot w izabela bandage on, elevated on foam wedge)
Neuro: AO x 3
Psych: Calm
Data Reviewed
-
Total Time Spent with Patient (in minutes): 15
Critical Care Time (in minutes): 30
Labs: Labs Reviewed by me
[2025-08-10 07:00] VITALS: BP 121/61
[2025-08-10] MEDS: D5LR 1000 IV (07:59)
[2025-08-10] MEDS: ZESTRIL 5 MG PO (08:00)
[2025-08-10] MEDS: MIRAPEX 0.125 MG PO (08:01)
[2025-08-10 08:45] LABS: Hematocrit 30.3 % (37.0-47.0); Hemoglobin 9.5 g/dL (12.0-16.0); Mean Corp Hgb Conc. 31.4 g/dL (33.0-37.0); Mean Corpuscular Volume 86.6 fL (81.0-99.0); Nucleated Red Blood Cells % 0 %; Platelet Count 391 10^3/uL (130-400); Red Cell Dist. Width 17.0 % (11.5-14.5)
[2025-08-10 09:14] LABS: ALT (SGPT) 27 U/L (0-35); AST (SGOT) 33 U/L (14-36); Albumin 2.9 g/dl (3.5-5.0); Alkaline Phosphatase 83 U/L (38-126); Blood Urea Nitrogen 12 mg/dl (7-17); Calcium 10.0 mg/dl (8.4-10.2); Carbon Dioxide 26 mmol/L (22-30); Chloride 110 mmol/L (98-107); Estimated Creatinine Clearance 73 ml/min; Glucose 94 mg/dl (70-99); Potassium 3.6 mmol/L (3.5-5.1); Sodium 142 mmol/L (135-145); Total Protein 4.7 g/dl (6.3-8.2); eGFR > 60.00
--- NOTE | 2025-08-10 10:01 | W.PN.GS2 ---
Addendum entered and electronically signed by Lincoln Qureshi MD 08/10/25 10:16:
I was physically present and personally performed the stevens portions of the surgical evaluation and/or procedure with the resident. I discussed the findings, reviewed the resident�s note, and confirmed the medical decision-making. I provided direct
supervision as required and agree with the assessment and plan as documented with the following additions/corrections:
Patient seen and examined.
Continued bowel movements but stool consistency improving with semiformed soft/loose stool rather than liquid.
Appetite has not returned. Mild nausea but no vomiting. Abdominal discomfort but not worsening pain
AFVSS
NAD AAO x 3
ABD: Soft, not significantly distended. Mild generalized tenderness but no rebound rigidity or guarding. No significant tympany.
Assessment/plan: 75-year-old female with partial versus resolving high-grade small bowel obstruction.
Continues with multiple bowel movements but frequency improving as well as consistency.
Okay for low residue diet generally as tolerated
Original Note:
Today's Communication / Plan
-
Advanced to low residue diet today
Continue to monitor
Assessment / Plan
-
This is a 75-year-old female with a history of RA, cholecystectomy, exploratory laparotomy with SBR (130 cm) in [address] Valenzuela for small bowel obstruction, incisional hernia repair with mesh in 2017, multiple orthopedic surgeries who presents
with abdominal pain and bilious emesis for 2 to 3 days found to have a fairly high-grade small bowel obstruction.
She was commenced on oral with clear liquids yesterday, and is tolerating it. Still having liquid stools since bowel opening 2 days ago, vauge abdominal pain, more in the left lower quadrant. Denies nausea, vomiting an abdominal pain.
Plan:
Will continue nonoperative management of her SBO.
Advanced to Low residue diet today and monitor.
Out of bed and ambulate as able, PT
Continue Wound care.
VTE PPX- Lovenox
General surgery will continue to follow.
Subjective Data
-
Date of Service: August 10, 2025
Objective Data
-
Intake and Output
08/09/25 08/10/25 08/11/25
06:59 06:59 06:59
Intake Total 2508 / 2508
Balance 2508 / 2508
Intake:
Oral fluids 1200 / 1200
IV fluids (Total) 788 / 788
IV piggybacks 520 / 520
Other:
Number of approximated MODERATE 3 3
amounts of urine
Number of unmeasured liquid
stools
Rectum 3 3 2
Vital Signs
Temp Pulse Resp BP Pulse Ox
99.3 F 72 20 121/64 96
08/10/25 07:00 08/10/25 08:00 08/10/25 07:00 08/10/25 08:00 08/10/25 07:00
Lab Results
08/10/25 07:55
08/10/25 07:55
Calcium 10.0 mg/dl (8.4-10.2) 08/10/25 07:55
Total Bilirubin 0.4 mg/dl (0.2-1.3) 08/10/25 07:55
AST 33 U/L (14-36) 08/10/25 07:55
ALT 27 U/L (0-35) 08/10/25 07:55
Alkaline Phosphatase 83 U/L (38-126) 08/10/25 07:55
Total Protein 4.7 g/dl (6.3-8.2) L 08/10/25 07:55
Albumin 2.9 g/dl (3.5-5.0) L 08/10/25 07:55
Physical Exam
-
Elderly lady, in no obvious distress
CVS; S1 S2 Only
RS; Vesicular breath sounds
ABD; not distended, moves with respiration
Soft, non tender.
Palpable small bumps beneath skin on previous abdominal hernia site
Bowel sounds are present
Patient has a remy catheter: No
Patient has a central line: No
--- NOTE | 2025-08-10 11:06 | PTCARENOTE ---
INDRA paperwork signed with MD at bedside. pt states she wants to go home and can do everything she is doing here at home. states she does not want to be here any longer. IV access removed at bedside and pt is calling to pick her up.
[2025-08-10 11:44] VITALS: BP 108/75
--- NOTE | 2025-08-10 13:16 | CM ---
CM following re: discharge planning.
Per chart review, pt left AMA.
CM did not have a chance to meet with the pt.
--- NOTE | 2025-08-10 17:43 | W.DCSUMMARY ---
Discharge Summary
Discharge Data
Date of Admission: 08/04/25
Date of Discharge: 08/10/25
Total time spent discharging patient (in min): 35
-
Pending Results: No
Hospital Course
Discharging Physician : Ramirez Valle; Shanti So
Disposition : to home with VN
Primary care physician : Mynor Méndez
Principal Discharge diagnosis : Small bowel obstruction; right ankle wound
Chronic Discharge diagnosis : Atrial tachycardia/PACs/SVT; HLD; hypothyroidism; rheumatoid arthritis; chronic anemia; chronic venous insufficiency; restless leg syndrome
Hospital Course :
Small bowel obstruction
Patient presented on 08/04/2025 with 4 days of abdominal pain/firmness, vomiting bile, low appetite, with no bowel movement in 3 to 4 days and minimal flatus. Patient has an extensive history of intra-abdominal surgeries including: Cholecystectomy,
hysterectomy, prior SBO requiring 51 inches of bowel resection (2013), prior SBO that resolved with conservative management (2019). CT abdomen pelvis on admission demonstrated SBO with small bowel dilatation present, with no evidence of threat of
bowel compromise. Likely recurrent SBO in the setting of intra-abdominal adhesions. Patient was afebrile with normal lactate and WBC on admission.
Patient was managed conservatively with NG tube placed. NG tube output large-volume green, bilious fluid. Patient stated that she had some relief of abdominal pain and firmness s/p NG tube, but still had some distention and pain with large volume
bilious output from NG tube. Small bowel follow-through was performed on 08/07, which demonstrated persistence of suspected distal SBO. Team had planned for potential OR for operative management of SBO at that point. However, overnight following
SBFT, the patient had explosive, large-volume diarrhea, during which point the NG tube 'fell out.' The next morning 08/08 the patient felt comfortable without NG tube, denied abdominal pain or nausea/vomiting. We opted for continued conservative
management, advancing diet from clears, to full liquids, to low residue solids by the morning of 08/10. Throughout this time, patient denied any nausea/vomiting or abdominal pain. On the morning of 08/10, patient was still having low volume diarrhea
(although decreased from prior day) and endorsed that her abdomen still felt more distended than usual. Primary and surgery teams agreed on monitoring her symptoms over the day with a low residue diet, with plan for potential discharge 08/11.
However, patient became frustrated and left AMA in the afternoon of 08/10.
Hypertension
Patient denies any diagnosed history of HTN and is not on antihypertensive medications at home. However HTN has been documented in her chart past medical history, likely due to elevated BPs while in the hospital previously. On this admission,
patient had elevated BP with peaks in the 170s systolic that fluctuated down to the 140s on and off. 5 mg daily lisinopril was ordered for management of BP. Patient refused until the evening of 08/08 at which point she began taking the lisinopril.
Her blood pressures were in the 120s systolic following lisinopril. Recommend following up with outpatient primary care physician for evaluation of baseline HTN.
Right ankle wound
Patient presented with nonhealing right ankle wound. She has a history of right ankle replacement in the setting of her rheumatoid arthritis performed in December [address] Taurus Rodriguez at [facility], which was complicated by postop
MRSA infection, followed by multiple OR washouts and skin grafts, most recently in May 2025. Patient had been on IV antibiotics until 08/03/25 at which point she was transition to p.o. doxycycline for a planned 6-month course. Patient was given 100
mg twice daily IV doxycycline while inpatient, which was converted to 100 mg p.o. twice daily doxycycline on 08/10. Patient was seen by wound care while admitted. Our team called her pending visiting nurse facility to clarify whether a wound VAC
was meant to be placed this week at home. Wound VAC details were obtained and relayed to inpatient wound care team. However wound care team saw patient and, nonhealing incisional wound on patient's right ankle was actually found to be
well-approximated and not open. After consulting with [facility] visiting nursing, wound care determined that the best course of action would be to defer wound VAC placement to the outpatient setting.
Important imaging findings :
1. Abdomen/pelvis CT (08/04)
- Small bowel obstruction. Transition point is not clearly identified on this examination. Associated small volume of free fluid within the abdomen.
- Moderate intrahepatic biliary dilation. Marked common duct dilation. No filling defects identified within the common duct. Post cholecystectomy. These findings have progressed as compared to previous study.
2. Small bowel follow-through x-ray (08/07)
In comparison to Small bowel series earlier the same day, delayed imaging and 8 hours reveals continued residual small bowel contrast suspicious for distal small bowel obstruction.
3. Abdomen x-ray (08/08)
Much improved previous findings suggesting small bowel obstruction. Persistent mild small bowel dilatation with moderate residual contrast suggesting partial small bowel obstruction or mild small bowel ileus.
Procedure findings : N/A
Discharge Plan
-
Patient Disposition: Against Medical Advice
Activity Restrictions/Additional Instructions:
Wound Care Instructions
R foot/ankle: clean with saline, over suture line apply adaptic, folded 4x4 gauze, kerlix change bid and prn drainage until obtain wound vac supplies.
once obtain wound vac apply per Dr. Rodriguez's instructions.
R leg elevation when sitting in foam wedge
R foot immobilizer boot when walking
Follow up with Dr. Rodriguez at [facility].
Referrals:
Mynor Méndez Jr., DO [Family Provider, Internal Medicine]
Prescriptions:
No Action
levothyroxine [Synthroid] 100 mcg Tablet
100 mcg PO DAILY
rosuvastatin 5 mg Tablet
5 mg PO HS
pramipexole 0.375 mg tablet extended release 24 hr
0.375 mg PO DAILY
cholecalciferol (vitamin D3) [Vitamin D3] 25 mcg (1,000 unit) Tablet
25 mcg PO DAILY
acetaminophen [Tylenol] 325 mg Tablet
650 mg PO TIDPRN PRN (Reason: mild pain)
Theragen Tablet
1 tab PO DAILY
calcium carbonate [Calcium 500] 500 mg calcium (1,250 mg) Tablet
500 mg PO DAILY
doxycycline monohydrate 100 mg Capsule
100 mg PO BID
oxycodone 10 mg Tablet
10 mg PO Q4HPRN PRN (Reason: severe pains)
Discharge Date and Time
Discharge Date/Time: 08/10/25 13:14
Print Language: WELSH
== END 2025-08-10 13:14 | disposition left against medical advice (07) | DRG 389 ==
LOC: 2 NORTH 15:19
PROVIDERS: ADMITTING PHYSICIAN Hospitalist; ATTENDING PHYSICIAN Hospitalist; CONSULT PHYSICIAN Surgery; EMERGENCY PHYSICIAN Student in an Organized Health Care Education/Training Program; FAMILY PHYSICIAN Family Medicine
DX: K56.50 Intestinal adhesions [bands], unspecified as to partial versus complete obstruction (principal); F11.20 Opioid dependence, uncomplicated; I47.19 Other supraventricular tachycardia; Z87.19 Personal history of other diseases of the digestive system; E03.9 Hypothyroidism, unspecified; M06.9 Rheumatoid arthritis, unspecified; D64.9 Anemia, unspecified; I87.2 Venous insufficiency (chronic) (peripheral); G25.81 Restless legs syndrome; G89.29 Other chronic pain; I10 Essential (primary) hypertension; Z86.14 Personal history of Methicillin resistant Staphylococcus aureus infection; Z90.710 Acquired absence of both cervix and uterus; Z53.29 Procedure and treatment not carried out because of patient's decision for other reasons; B95.62 Methicillin resistant Staphylococcus aureus infection as the cause of diseases classified elsewhere; E78.00 Pure hypercholesterolemia, unspecified; I73.00 Raynaud's syndrome without gangrene; I89.0 Lymphedema, not elsewhere classified; Z79.82 Long term (current) use of aspirin; Z79.890 Hormone replacement therapy; Z79.899 Other long term (current) drug therapy; Z90.49 Acquired absence of other specified parts of digestive tract; Z96.661 Presence of right artificial ankle joint
CPT/HCPCS: 71045; 74018; 74177; 74250; 80048; 80053; 82306; 83605; 83970; 85025; 85610; 85730; 86850; 86900; 86901; 87045; 87046; 87070; 87324; 87427; 87449; 93005; 96361; 96374; 96375; 97116; 97163; 97530; 99285; Q9967

== ENCOUNTER → 2025-10-06 10:40 | Outpatient (REF) | payer OTHER, SELFPAY ==
[2025-10-06 11:36] LABS: Hematocrit 32.1 % (37.0-47.0); Hemoglobin 10.3 g/dL (12.0-16.0); Mean Corp Hgb Conc. 32.1 g/dL (33.0-37.0); Mean Corpuscular Volume 87.7 fL (81.0-99.0); Nucleated Red Blood Cells % 0 %; Platelet Count 276 10^3/uL (130-400); Red Cell Dist. Width 16.9 % (11.5-14.5)
[2025-10-06 12:04] LABS: ALT (SGPT) 29 U/L (0-35); AST (SGOT) 35 U/L (14-36); Albumin 4.2 g/dl (3.5-5.0); Alkaline Phosphatase 136 U/L (38-126); Blood Urea Nitrogen 25 mg/dl (7-17); Calcium 10.6 mg/dl (8.4-10.2); Carbon Dioxide 30 mmol/L (22-30); Chloride 98 mmol/L (98-107); Glucose 99 mg/dl (70-99); Potassium 4.2 mmol/L (3.5-5.1); Sodium 135 mmol/L (135-145); Total Protein 6.4 g/dl (6.3-8.2); eGFR > 60.00
== END ==
LOC: REG 10:40
PROVIDERS: FAMILY PHYSICIAN Family Medicine; OTHER PHYSICIAN Registered Nurse
DX: L03.119 Cellulitis of unspecified part of limb (principal); T84.59XA Infection and inflammatory reaction due to other internal joint prosthesis, initial encounter; I82.621 Acute embolism and thrombosis of deep veins of right upper extremity
CPT/HCPCS: 36415; 80053; 85025

== ENCOUNTER 2025-10-22 15:13 | Emergency (ER) | payer OTHER, SELFPAY ==
[2025-10-22] VITALS (20 sets, daily range): BP systolic 111–129; BP diastolic 53–96; BMI 25.0
[2025-10-22] MEDS: ZOFRAN 4 MG IV (15:27)
[2025-10-22] MEDS: DILAUDID 0.5 MG IV (15:28)
[2025-10-22] MEDS: DIPRIVAN 40 MG IV (16:42)
--- NOTE | 2025-10-22 17:08 | ED.GENMED ---
History of Present Illness
<Valery Hurst MD - Last Filed: 10/22/25 17:11>
General
Chief Complaint: Fall
Time Seen by Provider: 10/22/25 15:17
<Dolly Nino NP - Last Filed: 10/22/25 18:58>
General
Source: patient
Exam Limitations: none
Nursing documentation reviewed up to this point in time: agreed with
History of Present Illness
History of Present Illness:
Patient to the emergency department for evaluation of severe left hip pain. She states that she was ambulating, turned and her leg gave out. She denies hitting her head. She was brought to the emergency department by EMS for evaluation.
Past History
<Valery Hurst MD - Last Filed: 10/22/25 17:11>
Past History
ED Past Medical History: Arrthythmia, HTN, Hypothyroidism and Other (RA, colitis)
ED Past Surgical History: Bowel resection, Cardiac, Cholecystectomy, Gynecological, Orthopedic (multiple jjoint replacements) and Other
Social History
Tobacco: Non-smoker
Alcohol: Daily
Drug: None
Personal:
Living: with family
Employment: Retired
Family History
Family History: Hypertension
Review of Systems
<Dolly Nino NP - Last Filed: 10/22/25 18:58>
Review of Systems
Allergies reviewed?: Yes
All Other Systems: ROS reviewed and negative except as documented in HPI and ROS
Constitutional: Reports no symptoms
EENT: Reports no symptoms
Respiratory: Reports no symptoms
Cardiac: Reports no symptoms
ABD/GI: Reports no symptoms
Musculoskeletal: Reports joint pain (Pain to left hip)
Skin: Reports no symptoms
Neurological: Reports no symptoms
Psychiatric: Reports no symptoms
Phy Exam
<Dolly Nino NP - Last Filed: 10/22/25 18:58>
General Physical Exam
General Presentation: moderate distress
General age: appears stated age
General Skin: warm and dry
General Habitus: normal
General Mental: alert
Cardiovascular Exam
Cardiovascular Exam: regular rate/rhythm
Pulmonary Exam
Pulmonary Exam: lungs clear and no respiratory distress
Musculoskeletal Exam
Musculoskeletal Exam: neuro vasc intact
Skin Exam
Skin Exam: normal color, warm/dry and no rash
Psychiatric Exam
Psychiatric Exam: normal mood/affect
Course
<Valery Hurst MD - Last Filed: 10/22/25 17:11>
Orders/Labs/Results
Orders:
Orders
10/22/25 15:25
Ondansetron Injectable [Zofran] 4 mg .ROUTE .STK-MED ONE
10/22/25 15:26
HYDROmorphone [Dilaudid] 0.5 mg .ROUTE .STK-MED ONE
HYDROmorphone [Dilaudid] 0.5 mg IV NOW STA
Ondansetron Injectable [Zofran] 4 mg IV NOW STA
Hip, Left 2-3 Views [CR Hip - LT w/wo Pel 2-3 Vw*] Urgent
Comment:
Reason For Exam: fall
Include a pelvis x-ray?: Yes
10/22/25 16:06
Propofol [Diprivan] 20 ml .ROUTE .STK-MED
10/22/25 16:44
Hip, Left 2-3 Views [CR Hip - LT w/wo Pel 2-3 Vw*] Urgent
Comment:
Reason For Exam: post reduction
Include a pelvis x-ray?: No
10/22/25 16:50
Propofol [Diprivan] 40 mg IV NOW STA
Vital Signs
Initial and Last Documented VS:
Initial Vital Signs
Temp Pulse Resp BP Pulse Ox
97.4 F 98 16 129/71 99
10/22/25 15:18 10/22/25 15:18 10/22/25 15:18 10/22/25 15:18 10/22/25 15:18
Last Documented Vital Signs
Temp Pulse Resp BP Pulse Ox
98.3 F 93 22 111/64 95
10/22/25 16:42 10/22/25 17:22 10/22/25 17:22 10/22/25 17:22 10/22/25 17:22
<Dolly Nino, SUSTAINABILITY CONSULTANT - Last Filed: 10/22/25 18:58>
Orders/Labs/Results
Orders:
Orders
10/22/25 15:25
Ondansetron Injectable [Zofran] 4 mg .ROUTE .STK-MED ONE
10/22/25 15:26
HYDROmorphone [Dilaudid] 0.5 mg .ROUTE .STK-MED ONE
HYDROmorphone [Dilaudid] 0.5 mg IV NOW STA
Ondansetron Injectable [Zofran] 4 mg IV NOW STA
Hip, Left 2-3 Views [CR Hip - LT w/wo Pel 2-3 Vw*] Urgent
Comment:
Reason For Exam: fall
Include a pelvis x-ray?: Yes
10/22/25 16:06
Propofol [Diprivan] 20 ml .ROUTE .STK-MED
10/22/25 16:44
Hip, Left 2-3 Views [CR Hip - LT w/wo Pel 2-3 Vw*] Urgent
Comment:
Reason For Exam: post reduction
Include a pelvis x-ray?: No
10/22/25 16:50
Propofol [Diprivan] 40 mg IV NOW STA
Vital Signs
Initial and Last Documented VS:
Initial Vital Signs
Temp Pulse Resp BP Pulse Ox
97.4 F 98 16 129/71 99
10/22/25 15:18 10/22/25 15:18 10/22/25 15:18 10/22/25 15:18 10/22/25 15:18
Last Documented Vital Signs
Temp Pulse Resp BP Pulse Ox
98.3 F 93 22 111/64 95
10/22/25 16:42 10/22/25 17:22 10/22/25 17:22 10/22/25 17:22 10/22/25 17:22
Procedures
<Valery Hurst MD - Last Filed: 10/22/25 17:11>
Moderate Sedation
ASA Risk Score: Class II
Chart and allergies reviewed: Yes
Consent for anesthesia obtained: Yes
Time out completed (validating right patient & procedure): Yes
Moderate Sedation Start Time(when first medication is given): 16:42
History of difficult intubation: No
Airway free of obstruction: Yes
Patient has a gag reflex: Yes
Patient is able to open mouth: Yes
Patient has no dentures: Yes
Patient has no loose teeth: Yes
Medication administered by Provider during Moderate Sedation: IV Propofol (mg)
Total dose administered: 40
Time drug administered: 16:42
Moderate Sedation Procedure End Time: 16:52
Joint/Fracture Reduction
Left Hip:
Indication for procedure:: dislocation
Procedure completed by: jennie
Consent form signed: Yes
Joint reduced: with anesthesia sedation
Injury was: closed
Post reduction exam: stable
Capillary Refill: normal
Normal distal neurovascular exam?: Yes
<Valery Hurst MD - Last Filed: 10/22/25 17:11>
*Pulse Oximetry
SaO2: 94
Oxygen Mode of Delivery: Room air
<Dolly Nino NP - Last Filed: 10/22/25 18:58>
*Radiology
Radiology exam reviewed: radiology read reviewed
*Pulse Oximetry
Patient hypoxic: no
*Critical Care Note
Total Time (30-74mins, 75-104mins- exclusive of procedures): Not Applicable
<Dolly Nino NP - Last Filed: 10/22/25 18:58>
Update Note
Update Note:
Patient to the emergency department for evaluation of a dislocation to her left prosthetic hip. Injury occurred just prior to arrival when she attempted to turn while ambulating. X-ray confirms dislocation. Moderate sedation obtained with the use
of propofol administered by Dr. Hurst. Left hip dislocation successfully reduced bedside by . Knee immobilizer was placed. She is able to ambulate safely with the use of a walker. She will be discharged home and will follow-up with her
orthopedic provider. She is given instructions on signs and symptoms to return to the emergency department and she is agreeable to this plan.
ED Attending Note
<Valery Hurst MD - Last Filed: 10/22/25 17:11>
ED Attending Note
Patient seen and examined by attending physician: Yes
I performed the substantive portion of visit, reviewed & personally made and approve the management plan that is documented in note by myself or EMERALD.: Yes
ED Attending Note:
I have seen and evaluated the patient with a [id number] encounter. I have spoken to the [EMERALD] and involved in the medical history, the physical exam, medical decision making.
Evaluation and management service: agree unless noted differently below.
Results interpretation: agree unless noted differently below.
75-year-old woman presenting to the emergency department with hip pain. Patient states that she had a total hip replacement 7 years ago by [facility]. Today she was walking to the bathroom when she had a sudden sharp pain in her left hip. She slowly
lowered herself to the ground. She did not hit her head or lose consciousness. She is not on blood thinner. Her only pain is to the left hip. On my evaluation patient does appear uncomfortable. Her left hip is internally rotated. She does have
peripheral pulses intact. Normal sensation. X-ray per my interpretation with dislocated hip. Hip was successfully reduced and patient was placed in a knee immobilizer. Patient only needed 40 mg of propofol. She tolerated the procedure well.
Please see procedure note above.
Critical care statement: A total of 10 minutes of critical care time was provided for this patient. This includes management of unstable vital signs, evaluation of the patient at bedside, reviewing the patient's pertinent medical records, ordering
and reviewing studies, arranging urgent treatment with development of a management plan, evaluating patient's response to treatment, frequent reassessment, and discussion with consultants. This time was separate from time utilized to perform the
aforementioned documented procedures.
-
Portions of this chart may have been created with voice recognition software.� Occasional wrong word or��sound alike� substitutions may have occurred due to the inherent limitations of voice recognition software.
Discharge Plan
Departure
Patient Disposition: Home (Routine Discharge)
Date of Disposition: 10/22/25
Time of Disposition: 18:50
Patient with high blood pressure during this ER visit?: No
Condition: Good
Covid-19: Not Applicable
Discharge Problem:
Hip dislocation, left
Instructions: Hip Dislocation, Cold therapy for pain, How to use a knee brace, MODERATE SEDATION ADULT
Prescriptions:
No Action
levothyroxine [Synthroid] 100 mcg Tablet
100 mcg PO DAILY
rosuvastatin 5 mg Tablet
5 mg PO HS
pramipexole 0.375 mg tablet extended release 24 hr
0.375 mg PO DAILY
cholecalciferol (vitamin D3) [Vitamin D3] 25 mcg (1,000 unit) Tablet
25 mcg PO DAILY
acetaminophen [Tylenol] 325 mg Tablet
650 mg PO TIDPRN PRN (Reason: mild pain)
Theragen Tablet
1 tab PO DAILY
calcium carbonate [Calcium 500] 500 mg calcium (1,250 mg) Tablet
500 mg PO DAILY
doxycycline monohydrate 100 mg Capsule
100 mg PO BID
oxycodone 10 mg Tablet
10 mg PO Q4HPRN PRN (Reason: severe pains)
Referrals:
Justin Clifton MD [Active, Orthopedics]
Mynor Méndez Jr., DO [Family Provider, Internal Medicine]
Activity Restrictions/Additional Instructions:
You will need to wear your knee immobilizer at all times. Follow-up with your orthopedic provider this week.
Interventions
Interventions:
*Risk Screen - Suicide Last Done: 10/22/25 15:15
*General Assessment Last Done: 10/22/25 15:15
*Neglect/Abuse Screening Last Done: 10/22/25 15:15
*ED- Fall Risk Assessment Last Done: 10/22/25 15:15
*ED COVID-19 Vaccine History Last Done: 10/22/25 15:15
*ED Influenza Vaccine History Last Done: 10/22/25 15:15
ED-Musculoskeletal Assessment Last Done: 10/22/25 15:32
ED- Neurological Assessment Last Done: 10/22/25 15:32
ED-Skin Assessment Last Done: 10/22/25 15:32
Discharge Date and Time
Print Language: KIS[place]HIL[place]
Musculoskeletal Injury Exam
<Dolly Nino NP - Last Filed: 10/22/25 18:58>
Musculoskeletal Injury Exam
Left Hip:
Pain with Movement?: Moderate
Tender to palpation?: Moderate
Soft tissue swelling?: None
External deformity and angulation?: None
Joint effusion?: None
Contusion?: None
Hematoma-local bleeding into tissue?: None
Strain- Sprain- Tear (Connective tissue injury)?: Moderate
Crepitus with movement?: No
Joint instability?: No
Malalignment/deformity?: Yes
Range of motion: Limited
Distal skin color and temperature: normal-warm & good color
Capillary Refill: normal
Normal distal neurovascular exam?: Yes
Peripheral Pulses: posterior tibial (left): 3+ and dorsalis pedis (left): 3+
== END 2025-10-22 19:08 | disposition home or self-care (01) ==
LOC: EMR 15:13
PROVIDERS: EMERGENCY PHYSICIAN Student in an Organized Health Care Education/Training Program; FAMILY PHYSICIAN Family Medicine
DX: T84.021A Dislocation of internal left hip prosthesis, initial encounter (principal); Y79.2 Prosthetic and other implants, materials and accessory orthopedic devices associated with adverse incidents; I10 Essential (primary) hypertension; E03.9 Hypothyroidism, unspecified; M06.9 Rheumatoid arthritis, unspecified; Z96.641 Presence of right artificial hip joint; Z82.49 Family history of ischemic heart disease and other diseases of the circulatory system
CPT/HCPCS: 99285; 96374; 96375; 27265; 73502

== ENCOUNTER 2025-11-08 07:23 | Emergency (ER) | payer OTHER, SELFPAY ==
[2025-11-08] VITALS (17 sets, daily range): BP systolic 94–140; BP diastolic 42–80; BMI 24.6
[2025-11-08] MEDS: DILAUDID 1 MG IM (07:49)
--- NOTE | 2025-11-08 07:49 | ED.GENMED ---
History of Present Illness
<Juhi Kilpatrick PA-C - Last Filed: 11/08/25 14:45>
General
Chief Complaint: Musculo-Skeletal Complaint
Source: patient
Exam Limitations: none
Time Seen by Provider: 11/08/25 07:33
Nursing documentation reviewed up to this point in time: agreed with
History of Present Illness
History of Present Illness:
see MDM
Past History
<SKYLER Whitney Last Filed: 11/08/25 14:45>
Past History
ED Past Medical History: Arrthythmia, HTN, Hypothyroidism and Other (RA, colitis)
ED Past Surgical History: Bowel resection, Cardiac, Cholecystectomy, Gynecological, Orthopedic (multiple jjoint replacements) and Other
Social History
Tobacco: Non-smoker
Alcohol: Daily
Drug: None
Personal:
Living: with family
Employment: Retired
Family History
Family History: Hypertension
Review of Systems
<SKYLER Whitney Last Filed: 11/08/25 14:45>
Review of Systems
Allergies reviewed?: Yes
All Other Systems: Not applicable
Phy Exam
<SKYLER Whitney Last Filed: 11/08/25 14:45>
Physical Exam
Physical Exam:
GENERAL: Alert , moderate distress, moaning
HEAD: NCAT
CARDIAC: Regular rate and rhythm, bilateral lower extremity edema
LUNGS: Clear breath sounds bilaterally, no acute respiratory distress, no wheezes/rales/rhonchi
ABDOMEN: Soft, without focal tenderness, no r/g, no cvat
NEUROLOGICAL: Alert and oriented, no focal neuro deficits, CN intact, 5/5 strength, sensation intact
SKIN: Warm and dry, patient has incision wrapped on her right ankle that was not removed, she has dried skin on the left foot/venous stasis changes with lymphedema
MUSCULOSKELETAL: Moderate edema, well perfused.
Left hip internally rotated, patient very uncomfortable, moaning
PSYCH: Normal and appropriate interaction.
Course
<Juhi Kilpatrick PA-C - Last Filed: 11/08/25 14:45>
Orders/Labs/Results
Orders:
Orders
11/08/25 07:34
Hip, Left 2-3 Views [CR Hip - LT w/wo Pel 2-3 Vw*] Urgent
Comment:
Reason For Exam: hip dislocation
Include a pelvis x-ray?: Yes
11/08/25 07:40
HYDROmorphone [Dilaudid] 1 mg IV NOW STA
11/08/25 07:47
HYDROmorphone [Dilaudid] 1 mg IM NOW STA
11/08/25 08:18
Fentanyl Citrate/Pf [Sublimaze] 50 mcg IV NOW STA
11/08/25 08:56
Complete Blood Count/With Diff Urgent
Comprehensive Metabolic Panel Urgent
PTT Urgent
Prothrombin Time Urgent
11/08/25 09:11
Propofol [Diprivan] 20 ml .ROUTE .STK-MED
11/08/25 09:29
Hip, Left 2-3 Views [CR Hip - LT w/wo Pel 2-3 Vw*] Urgent
Comment:
Reason For Exam: post reduction
Include a pelvis x-ray?: Yes
Abnormal Lab Results
11/08/25
08:56
RBC 2.94 L 10^6/uL
(4.20-5.40)
Hgb 8.7 L g/dL
(12.0-16.0)
Hct 27.0 L %
(37.0-47.0)
MCHC 32.2 L g/dL
(33.0-37.0)
RDW 20.4 H %
(11.5-14.5)
Absolute Monos (auto) 0.7 H 10^3/uL
(0.1-0.6)
Lymphocytes % 17.9 L %
(20.5-51.1)
PT 17.2 H Sec
(11.4-14.6)
BUN 29 H mg/dl
(7-17)
Alkaline Phosphatase 127 H U/L
(38-126)
Total Protein 5.2 L g/dl
(6.3-8.2)
Albumin 3.4 L g/dl
(3.5-5.0)
11/08/25 08:56
11/08/25 08:56
Vital Signs
Initial and Last Documented VS:
Initial Vital Signs
BP
140/76
11/08/25 07:27
Last Documented Vital Signs
Temp Pulse Resp BP Pulse Ox
36.2 C 73 16 106/42 99
11/08/25 09:17 11/08/25 10:38 11/08/25 09:17 11/08/25 09:29 11/08/25 09:29
<Sae Oswaldo Aburto, - Last Filed: 11/08/25 09:59>
Orders/Labs/Results
Orders:
Orders
11/08/25 07:34
Hip, Left 2-3 Views [CR Hip - LT w/wo Pel 2-3 Vw*] Urgent
Comment:
Reason For Exam: hip dislocation
Include a pelvis x-ray?: Yes
11/08/25 07:40
HYDROmorphone [Dilaudid] 1 mg IV NOW STA
11/08/25 07:47
HYDROmorphone [Dilaudid] 1 mg IM NOW STA
11/08/25 08:18
Fentanyl Citrate/Pf [Sublimaze] 50 mcg IV NOW STA
11/08/25 08:56
Complete Blood Count/With Diff Urgent
Comprehensive Metabolic Panel Urgent
PTT Urgent
Prothrombin Time Urgent
11/08/25 09:11
Propofol [Diprivan] 20 ml .ROUTE .STK-MED
11/08/25 09:29
Hip, Left 2-3 Views [CR Hip - LT w/wo Pel 2-3 Vw*] Urgent
Comment:
Reason For Exam: post reduction
Include a pelvis x-ray?: Yes
Abnormal Lab Results
11/08/25
08:56
RBC 2.94 L 10^6/uL
(4.20-5.40)
Hgb 8.7 L g/dL
(12.0-16.0)
Hct 27.0 L %
(37.0-47.0)
MCHC 32.2 L g/dL
(33.0-37.0)
RDW 20.4 H %
(11.5-14.5)
Absolute Monos (auto) 0.7 H 10^3/uL
(0.1-0.6)
Lymphocytes % 17.9 L %
(20.5-51.1)
PT 17.2 H Sec
(11.4-14.6)
BUN 29 H mg/dl
(7-17)
Alkaline Phosphatase 127 H U/L
(38-126)
Total Protein 5.2 L g/dl
(6.3-8.2)
Albumin 3.4 L g/dl
(3.5-5.0)
11/08/25 08:56
11/08/25 08:56
Vital Signs
Initial and Last Documented VS:
Initial Vital Signs
BP
140/76
11/08/25 07:27
Last Documented Vital Signs
Temp Pulse Resp BP Pulse Ox
36.2 C 73 16 106/42 99
11/08/25 09:17 11/08/25 10:38 11/08/25 09:17 11/08/25 09:29 11/08/25 09:29
Procedures
<Juhi Kilpatrick PA-C - Last Filed: 11/08/25 14:45>
Moderate Sedation
ASA Risk Score: Class III
Chart and allergies reviewed: Yes
Consent for anesthesia obtained: Yes
Time out completed (validating right patient & procedure): Yes
Moderate Sedation Start Time(when first medication is given): 09:17
History of difficult intubation: No
Airway free of obstruction: Yes
Patient has a gag reflex: Yes
Patient is able to open mouth: Yes
Patient has no dentures: Yes
Patient has no loose teeth: Yes
Medication administered by Provider during Moderate Sedation: IV Propofol (mg)
Total dose administered: 100
Time drug administered: :17
Moderate Sedation Procedure End Time: 09:35
<Juhi Kilpatrick PA-C - Last Filed: 11/08/25 14:45>
MDM/Problems Addressed
Differential Diagnosis Includes:
see MDM
MDM/Problems Addressed:
Note:
CHIEF COMPLAINT(S)
Hip and ankle issues, including recurrent hip dislocations and ankle problems.
HISTORY OF PRESENT ILLNESS
The patient 75 y/o, a female, presents with a history of recurrent hip dislocation and chronic ankle problems. Her hip dislocation first occurred after a hip replacement surgery, initially performed by Hernandez at [facility] seven years ago, with the
first dislocation happening recently around two weeks ago. [facility] [place]. after being reduced here, she f/u with him and he put her in a hip brace but it wasn't fitting properly
she wasn't wearing it this morning
she went to sit on the toilet and dislocated.
In addition to the hip issues, she has a history of complications related to an ankle replacement, which resulted in limb salvage surgery at the [facility]. This included multiple surgeries, leading to the placement of a
cement spacer with antibiotics. The patient confirms she has reduced mobility in her toes as a result of these complications.
pt is crying in pain
SOCIAL HISTORY
The patient mentions engaging in activities at home, although she implies significant orthopedic limitations impacting her mobility.
PHYSICAL EXAM
- Neurological: Unable to actively move toes; limited sensation, though light touch is present.
Nursing notes reviewed and vital signs reviewed.
PLAN
- Consideration of providing a muscle injection for pain management pending the arrival of her support.
- Evaluation by the orthopedic team for further management of the hip and ankle issues.
DIFFERENTIAL DIAGNOSIS
The Differential Diagnosis includes, in no particular order and is not limited to:
1. Recurrent mechanical failure of hip prosthesis
2. Prosthetic joint infection
3. Charcot joint changes
4. Arthritis-related instability
5. Ligamentous injury of the hip
6. Post-surgical complications of ankle replacement
7. Nerve impingement or damage
8. Susan-prosthetic fracture
9. Complications from cement spacer in the ankle
10. Localized infection at surgical sites
75 y/o F
h/o previous total L hip replacement
dislocated 2 weeks ago
seen here and reduced after conscious sedation
went to get her hip brace
f/u with her ortho who put a brace on her but she said that she wasn't wearing it becuase it wasn't fitting well
<Juhi Kilpatrick PA-C - Last Filed: 11/08/25 14:45>
*Pulse Oximetry
SaO2: 96
Oxygen Mode of Delivery: Room air
Patient hypoxic: no (94)
*Critical Care Note
Total Time (30-74mins, 75-104mins- exclusive of procedures): Not Applicable
ED Attending Note
<Juhi Kilpatrick PA-C - Last Filed: 11/08/25 14:45>
-
Portions of this chart may have been created with voice recognition software.� Occasional wrong word or��sound alike� substitutions may have occurred due to the inherent limitations of voice recognition software.
<Sae Aburto DO - Last Filed: 11/08/25 09:59>
ED Attending Note
Patient seen and examined by attending physician: Yes
I performed the substantive portion of visit, reviewed & personally made and approve the management plan that is documented in note by myself or EMERALD.: Yes
ED Attending Note:
I agree with Nasreen's note.
Pt presents with sudden onset left hip pain similar to previous prosthetic hip dislocation.
Pt appears uncomfortable.
Left leg shortened and internally rotated. Pulses intact
Hip film demonstrates dislocation.
I performed procedural sedation while Nasreen performed the hip reduction. Post reduction film shows good reduction.
Discharge Plan
Departure
Patient Disposition: Home (Routine Discharge)
Date of Disposition: 11/08/25
Time of Disposition: 11:59
Patient with high blood pressure during this ER visit?: No
Condition: Fair
Discharge Problem:
Dislocation, hip, Anemia
Instructions: Hip Dislocation (DC), MODERATE SEDATION ADULT
Prescriptions:
No Action
levothyroxine [Synthroid] 100 mcg Tablet
100 mcg PO DAILY
rosuvastatin 5 mg Tablet
5 mg PO HS
pramipexole 0.375 mg tablet extended release 24 hr
0.375 mg PO DAILY
cholecalciferol (vitamin D3) [Vitamin D3] 25 mcg (1,000 unit) Tablet
25 mcg PO DAILY
acetaminophen [Tylenol] 325 mg Tablet
650 mg PO TIDPRN PRN (Reason: mild pain)
Theragen Tablet
1 tab PO DAILY
calcium carbonate [Calcium 500] 500 mg calcium (1,250 mg) Tablet
500 mg PO DAILY
doxycycline monohydrate 100 mg Capsule
100 mg PO BID
oxycodone 10 mg Tablet
10 mg PO Q4HPRN PRN (Reason: severe pains)
Referrals:
Mynor Méndez Jr., DO [Family Provider, Internal Medicine] - Follow up in 2-3 days
Activity Restrictions/Additional Instructions:
Wear your brace and call your orthopedic surgeon and make sure that they know that you dislocated again. Be very careful with getting up and down from the toilet. Return for any concerns.
You do have anemia but you do not need a blood transfusion today.
Interventions
Interventions:
*Risk Screen - Suicide Last Done: 11/08/25 07:38
*General Assessment Last Done: 11/08/25 07:38
*Neglect/Abuse Screening Last Done: 11/08/25 07:41
*ED COVID-19 Vaccine History Last Done: 11/08/25 07:38
*ED Influenza Vaccine History Last Done: 11/08/25 07:38
[facility] Fall Risk Assessment Tool Last Done: 11/08/25 07:45
ED-Musculoskeletal Assessment Last Done: 11/08/25 08:30
Discharge Date and Time
Print Language: [id number]
[2025-11-08] MEDS: SUBLIMAZE 50 MCG IV (08:28)
[2025-11-08 09:11] LABS: Hematocrit 27.0 % (37.0-47.0); Hemoglobin 8.7 g/dL (12.0-16.0); Mean Corp Hgb Conc. 32.2 g/dL (33.0-37.0); Mean Corpuscular Volume 91.8 fL (81.0-99.0); Nucleated Red Blood Cells % 0 %; Platelet Count 230 10^3/uL (130-400); Red Cell Dist. Width 20.4 % (11.5-14.5)
[2025-11-08 09:23] LABS: INR 1.43; PT 17.2 Sec (11.4-14.6)
[2025-11-08 09:24] LABS: APTT 33.0 Sec (23.4-35.0)
[2025-11-08 09:45] LABS: ALT (SGPT) 28 U/L (0-35); AST (SGOT) 36 U/L (14-36); Albumin 3.4 g/dl (3.5-5.0); Alkaline Phosphatase 127 U/L (38-126); Blood Urea Nitrogen 29 mg/dl (7-17); Calcium 9.7 mg/dl (8.4-10.2); Carbon Dioxide 24 mmol/L (22-30); Chloride 104 mmol/L (98-107); Estimated Creatinine Clearance 60 ml/min; Glucose 98 mg/dl (70-99); Potassium 4.2 mmol/L (3.5-5.1); Sodium 137 mmol/L (135-145); Total Protein 5.2 g/dl (6.3-8.2); eGFR > 60.00
== END 2025-11-08 12:45 | disposition home or self-care (01) ==
LOC: EMR 07:23
PROVIDERS: Physician Assistant; EMERGENCY PHYSICIAN Emergency Medicine; FAMILY PHYSICIAN Family Medicine
DX: T84.021A Dislocation of internal left hip prosthesis, initial encounter (principal); Y79.2 Prosthetic and other implants, materials and accessory orthopedic devices associated with adverse incidents; D64.9 Anemia, unspecified; I10 Essential (primary) hypertension; E03.9 Hypothyroidism, unspecified; I87.8 Other specified disorders of veins; I89.0 Lymphedema, not elsewhere classified; M06.9 Rheumatoid arthritis, unspecified; Z74.09 Other reduced mobility; Z96.642 Presence of left artificial hip joint; Z96.669 Presence of unspecified artificial ankle joint; Z82.49 Family history of ischemic heart disease and other diseases of the circulatory system
CPT/HCPCS: 99285; 96374; 96372; 27265; 73502; 80053; 85025; 85610; 85730